=== PATIENT | female | born 1945 | race Caucasian/White ===

== ENCOUNTER 2023-03-27 08:53 | Outpatient (OUT) | payer BC, SELFPAY ==
[2023-03-27 09:39] LABS: Bilirubin Urine NEGATIVE (NEGATIVE); Blood Urine TRACE-I (NEGATIVE); Clarity Urine CLEAR (CLEAR); Color Urine YELLOW (YELLOW); Glucose Urine UA NEGATIVE (NEGATIVE); Ketones Urine NEGATIVE (NEGATIVE); Leukocyte Esterase Urine TRACE (NEGATIVE); Nitrite Urine NEGATIVE (NEGATIVE); Protein Urine TRACE mg/dL (NEG/TRACE); Urobilinogen Urine 0.2 EU/dL (0.2-1.0)
[2023-03-27 09:50] LABS: Bacteria Urine TRACE #/HPF (NONE SEEN)
[2023-03-27 09:51] LABS: Cast Seen? NONE SEEN #/LPF (NONE SEEN); Crystals Seen? None Seen #/HPF (None Seen); Mucus Urine TRACE (NONE SEEN); Squamous Epithelial Cell Urine FEW #/LPF (NONE/RARE); Urine Culture Indicated ALREADY ORDERED
== END 2023-03-27 08:54 | disposition home or self-care (01) ==
LOC: LAB 08:57
PROVIDERS: Family Provider Internal Medicine; PCP Internal Medicine; Visit Provider Internal Medicine
DX: R30.0 Dysuria (principal)
CPT/HCPCS: 81001; 87086; 87150; 87186

== ENCOUNTER 2023-04-11 08:00 | Outpatient (OUT) | payer BC, SELFPAY ==
[2023-04-11] MEDS: COVID VAC 23-24(12UP)MODERNA/PF 50 MCG/0.5 ML VIAL IM (15:00)
== END 2023-04-11 08:01 | disposition home or self-care (01) ==
LOC: VACCLI 05-31 08:56
PROVIDERS: Family Provider Internal Medicine; PCP Internal Medicine; Visit Provider Internal Medicine
DX: Z23 Encounter for immunization (principal)
CPT/HCPCS: 90480; 91322

== ENCOUNTER 2023-05-13 11:20 | Outpatient (OUT) | payer BC, SELFPAY | END 2023-05-13 11:21 | disposition home or self-care (01) | LOC: PST 11:20 | PROVIDERS: Family Provider Internal Medicine; PCP Internal Medicine; Visit Provider Surgery | DX: Z01.818 Encounter for other preprocedural examination (principal); Z12.11 Encounter for screening for malignant neoplasm of colon ==

== ENCOUNTER 2023-05-22 06:51 | Day surgery (SDC) | payer BC, SELFPAY ==
--- NOTE | 2023-05-22 | OP_ITS ---
OPERATION DATE: 05/22/2023 PREOPERATIVE DIAGNOSIS: Colorectal screening. POSTOPERATIVE DIAGNOSIS: 3 mm rectal polyp, hyperplastic. PROCEDURE: Colonoscopy to cecum with cold forceps polypectomy x1. SURGEON: Diomedes Ybarra M.D. ANESTHESIA: Monitored anesthesia care. ESTIMATED BLOOD LOSS: Less than 1 mL. INDICATIONS AND CONSENT: Patient is a 78-year-old female presents for colorectal screening. Indications, risks, benefits, alternatives of proceeding with colonoscopy were explained extensively to the patient, including the risks of bleeding, colon perforation or anesthetic complications. All of her questions were answered. Informed consent was obtained. PROCEDURE: Patient brought to the operating room, placed in the left lateral decubitus position. Monitored anesthesia care was provided. Rectal exam was performed which showed no masses or blood. The scope was inserted into the anal canal. Under direct visualization was advanced. It was advanced to the cecum where cecal markings were clearly identified. Upon withdrawal of the scope, mucosal surfaces were carefully examined. There were no mass lesions or inflammatory changes. There was mild sigmoid diverticulosis without inflammatory changes or scarring. Within the rectum, there was noted to be a 3 mm sessile polyp that appeared hyperplastic. This was removed with cold biopsy forceps with good hemostasis. The scope was retroflexed in the anal canal. There was no significant hemorrhoidal disease. Scope was then withdrawn. Patient tolerated procedure well, was sent to recovery room in good condition.f/u colonoscopy likely in 5 years, but depends on pathology. CC: Patient?s family physician MARY KAY
[2023-05-22 07:08] VITALS: BMI 29.9
[2023-05-22] MEDS: LACTATED RINGER'S SOLUTION 1,000 ML 50 ML IV (07:16)
[2023-05-22 08:25] VITALS: BP 100/44; PULSE 45; RESP 16; TEMP 36.4
[2023-05-22 08:40] VITALS: BP 106/47; PULSE 47; RESP 18; O2SAT 93
[2023-05-22 08:55] VITALS: BP 119/52; PULSE 48; RESP 18; O2SAT 98
== END 2023-05-22 08:55 | disposition home or self-care (01) ==
PROVIDERS: Family Provider Internal Medicine; PCP Internal Medicine; Visit Provider Surgery
PROC: (CPT 811; principal; 2023-05-22 08:00)
DX: Z12.11 Encounter for screening for malignant neoplasm of colon (principal); K62.1 Rectal polyp; K57.30 Diverticulosis of large intestine without perforation or abscess without bleeding; M19.90 Unspecified osteoarthritis, unspecified site; K21.9 Gastro-esophageal reflux disease without esophagitis; I10 Essential (primary) hypertension; Z87.442 Personal history of urinary calculi; E78.00 Pure hypercholesterolemia, unspecified; E66.9 Obesity, unspecified; M85.80 Other specified disorders of bone density and structure, unspecified site; E21.3 Hyperparathyroidism, unspecified; I87.2 Venous insufficiency (chronic) (peripheral); Z90.710 Acquired absence of both cervix and uterus; Z68.30 Body mass index [BMI] 30.0-30.9, adult
CPT/HCPCS: 45380; 88305; J2704

== ENCOUNTER 2023-08-27 11:33 | Outpatient (OUT) | payer BC, SELFPAY ==
--- NOTE | 2023-08-27 11:35 | MM_ITS ---
Patient Name: CORA MCKENZIE MR#: [id number] : 1945 Exam Date: 08/27/2023 Ordering Doctor: DR Bennett Banda D.O. RADIOLOGY REPORT PROCEDURE: MM TOMOSYNTHESIS SCREENING BI COMPARISON: MG MAMM SCREEN 3D JOSE CAD, 08/22/2022. MG MAMM SCREEN 3D JSOE CAD, 08/17/2021. INDICATIONS: screening Calculator Name NCI Breast Cancer Risk Assessment Tool 5 Year Breast Cancer Risk 1.70% Lifetime Breast Cancer Risk 3.50% Personal Breast Cancer No Personal Ovarian Cancer No Treatments None Family Cancers None LOCATION: [facility] BREAST COMPOSITION: Scattered areas fibroglandular density. FINDINGS: DIAGNOSTIC CATEGORY 1--NEGATIVE. NO CHANGE FROM COMPARISON ASSESSMENT. Scattered benign-appearing calcifications are present. Scattered benign-appearing lymph nodes are present. RIGHT BREAST: No significant suspicious finding. LEFT BREAST: No significant suspicious finding. RECOMMENDATIONS: ROUTINE MAMMOGRAM AND CLINICAL EVALUATION IN 12 MONTHS. PLEASE NOTE: A NORMAL MAMMOGRAM DOES NOT EXCLUDE THE POSSIBILITY OF BREAST CANCER. A CLINICALLY SUSPICIOUS PALPABLE LUMP SHOULD BE BIOPSIED. Dictated by: Trace Richard MD on 08/27/2023 at 12:34 Approved by: Trace Richard MD on 08/27/2023 at 12:35
== END 2023-08-27 11:34 | disposition home or self-care (01) ==
LOC: MAMMO 11:33
PROVIDERS: Family Provider Internal Medicine; PCP Internal Medicine; Visit Provider Internal Medicine
DX: Z12.31 Encounter for screening mammogram for malignant neoplasm of breast (principal)
CPT/HCPCS: 77063; 77067

== ENCOUNTER 2023-10-24 06:33 | Outpatient (OUT) | payer BC, SELFPAY ==
--- OUTSIDE RECORDS SUMMARY | 2023-10-24 06:36 | XMS_ITS | CCD ---
Author Organization [facility] Care Team Providers Care Spray Gunner Name Role Phone BENNETT BANDA Primary Care Physician SOLO, DR TEJADA Admitting Unavailable SOLO, DR TEJADA Primary Care Unavailable SOLO, DR TEJADA Attending Unavailable BALL, DR TEJADA Admitting Unavailable BALL, DR TEJADA Attending Unavailable BALL, DR TEJADA Consulting Unavailable BALL, DR TEJADA Primary Care Unavailable WEST, DR TACOS Donaldson Consulting Unavailable BALL, DR TEJADA Admitting Unavailable BALL, DR TEJADA Attending Unavailable BALL, DR TEJADA Consulting Unavailable BALL, DR TEJADA Primary Care Unavailable BALL, DR TEJADA Primary Care Unavailable MANJIT, DARRELL Gongoraitting Unavailable WEST, DR TACOS Donaldson Consulting Unavailable MANJIT, DARRELL Attending Unavailable MANJIT, DARRELL Consulting Unavailable BALL, DR TEJADA Primary Care Unavailable BALL, DR TEJADA Admitting Unavailable BALL, DR TEJADA Attending Unavailable BALL, DR TEJADA Consulting Unavailable ZieberChirag Consulting Unavailable BALL, DR TEJADA Admitting Unavailable BALL, DR TEJADA Attending Unavailable BALL, DR TEJADA Consulting Unavailable BALL, DR TEJADA Primary Care Unavailable BALL, DR TEJADA Primary Care Unavailable BALL, DR TEJADA Consulting Unavailable BALL, DR TEJADA Admitting Unavailable BALL, DR TEJADA Attending Unavailable Solo, Bennett Unavailable Diomedes YBARRA Attending Unavailable DARRELL SARAVIA Attending Unavailable MANJITDARRELL Attending Unavailable MANJITDARRELL Attending Unavailable MANJIT, DARRELL [place] Attending Unavailable DARRELL SARAVIA Admitting Unavailable DARRELL SARAVIA Attending Unavailable Diomedes YBARRA Attending Unavailable Bennett Banda MD Primary Care Provider GERMANIA SANDOVAL Attending Unavailable GERMANIA SANDOVAL Referring Unavailable Allergies Allergy Classification Reported Allergen(s) Allergy Type Date of Onset Reaction(s) Facility (1 source) Adhesive agent Drug allergy (disorder) [facility] (1 source) Aspirin Drug Allergy [facility] (1 source) natural latex rubber Drug allergy (disorder) [facility] (4 sources) patient allergy list reviewed by nurse or physicia Propensity to adverse reactions 3 Comment:Done [employer] Other (4 sources) Adhesive Tape; Translations: [Tape] Drug allergy Eruption of skin (disorder) [facility] (3 sources) Ciprofloxacin; Translations: [ciprofloxacin] Drug Allergy 4 Floaters in visual field (finding) [facility] (1 source) Latex Allergy to substance 3 Rash [facility] Work Phone: (1 source) Wound Dressing Adhesive Drug Allergy 3 Rash [facility] Medications Current Medications Medication Drug Class(es) Dates Sig (Normalized) Sig (Original) 8 hr acetaminophen 650 mg extended release oral tablet (4 sources) Start: 04-30-2023 Tylenol 8 HR Arthritis Pain 650 mg oral tablet, extended release Refills(s) 0 Start Date: 04/30/23 Status: Ordered acetaminophen (T ylenol) 325 MG tablet every 6 (six) hours. 0 Active amLODIPine 5 mg oral tablet (16 sources) Dihydropyridine Calcium Channel Radha Start: 03-05-2019 take 1 tablet by mouth twice daily amLODIPine 5 mg Tab 5 mg = 1 tab(s), Oral, BID, Refills(s) 0 Start Date: 03/05/19 Status: Ordered Start: 03-05-2019 take 1 tablet by мария once daily amLODIPine 5 mg Tab 5 mg = 1 tab(s), Oral, Daily, Refills(s) 0 Start Date: 03/05/19 Status: Ordered ascorbic acid 100 mg chewable tablet (1 source) Vitamin C ascorbic acid (Vitamin C) 100 MG chewable tablet Vitamin C 0 Active Ocuvite (3 sources) Vitamin C Start: 3 take 1 tablet by mouth once daily Ocuvite 1 tab(s), Oral, Daily, Refill(s) 0 Start Date: 04/30/23 Status: Ordered aspirin 81 mg oral tablet (1 source) Platelet Aggregation Inhibitor, Nonsteroidal Anti-inflammatory Drug Start: 9 take 1 mg by mouth once daily aspirin 81 mg oral tablet mg tab(s), Oral, Daily, Refills(s) 0 Start Date: 03/05/19 Status: Ordered atenolol 25 mg oral tablet (16 sources) beta-Adrenergic Radha Start: 9 take 1 tablet by mouth once daily atenolol 25 mg Tab 25 mg = 1 tab(s), Oral, Daily, Refills(s) 0 Start Date: 03/05/19 Status: Ordered cefuroxime 250 mg oral tablet (3 sources) Cephalosporin Antibacterial Start: 3 take 1 tablet by mouth every twelve hours Cefuroxime Axetil 250 MG 1 tablet Orally every 12 hrs for 5 days Mar, Active Cranberry preparation (4 sources) Non-Standardized Food Allergenic Extract, Non-Standardized Plant Allergenic Extract Start: 3 cranberry Refill(s) 0 Start Date: 04/30/23 Status: Ordered Cranberry 50 MG chewable tablet Cranberry 0 Active Elderberry preparation (1 source) Elderberry 500 M G capsule Elderberry 0 Active etodolac 500 mg oral tablet (1 source) Nonsteroidal Anti-inflammatory Drug etodolac (Lodine) 500 MG tablet every 12 (twelve) hours. 0 Active Fish Oils (1 source) omega-3 (FISH OI L) 300 MG capsule Fish Oil 0 Active Garlic preparation (1 source) Non-Standardized Food Allergenic Extract Garlic 2 MG capsule Garlic 0 Active glucosamine sulfate 500 mg oral capsule (1 source) Glucosamine 500 MG capsule 1 (one) time each day at the same time. 0 Active hydrocortisone 10 mg/ml / neomycin 3.5 mg/ml / polymyxin b 18419 unt/ml otic suspension (4 sources) Aminoglycoside Antibacterial, Polymyxin-class Antibacterial, Corticosteroid Start: 04-09-2023 [id number] rocortisone (Cortisporin) 3.5-39878-2 otic suspension INSTILL 4 DROPS INTO THE AFFECTED EAR AT BEDTIME NEEDED 0 04/09/2023 Active Start: 04-09-2023 Neomycin-Polym yxin-HC 3.5-70876-6 4 drops into affected ear Otic q HS PRN for 30 days Mar, Active lisinopril 20 mg oral tablet (2 sources) Angiotensin Converting Enzyme Inhibitor Start: 03-05-2019 take 1 tablet by mouth once daily lisinopril 20 mg Tab 20 mg = 1 tab(s), Oral, Daily, Refills(s) 0 Start Date: 03/05/19 Status: Ordered lisinopril 40 MG tablet 1 (one) time each day at the same time. 0 Active Lutein (1 source) Start: 03-05-2019 lutein See Instructions, Refill(s) 0, Oral Daily Start Date: 03/05/19 Status: Ordered meloxicam 15 mg oral tablet (2 sources) Nonsteroidal Anti-inflammatory Drug Start: 03-05-2019 End: 07-24-2023 take 1 tablet by mouth once daily meloxicam 15 mg oral tablet 15 mg = 1 tab(s), Oral, Daily Start Date: 03/05/19 Status: Ordered Multiple Vitamins-Minerals (EYE VITAMINS & MINERALS PO) (1 source) Multiple Vitamins-Minerals (EYE VITAMINS & MINERALS PO) Eye Vitamins 0 Active omeprazole 20 mg delayed release oral capsule (17 sources) Proton Pump Inhibitor Start: 04-15-2023 take 1 capsule by mouth once daily omeprazole 20 mg Cap-DR 20 mg = 1 cap(s), Oral, Daily, Refills(s) 0 Start Date: 04/15/23 Status: Ordered Start: 03-05-2019 take 2 capsules by m outh once daily Prilosec 10 mg Cap-EC 20 mg = 2 cap(s), Oral, Daily, Refills(s) 0 Start Date: 03/05/19 Status: Ordered omeprazole OTC ( PriLOSEC OTC) 20 MG EC tablet 1 (one) time each day at the same time 0 Active pravastatin sodium 40 mg oral tablet (16 sources) HMG-CoA Reductase Inhibitor Start: 03-05-2019 take 1 tablet by mouth once daily pravastatin 40 mg Tab 40 mg = 1 tab(s), Oral, Daily, Refills(s) 0 Start Date: 03/05/19 Status: Ordered Pumpkin seed extract (1 source) Pumpkin Seed 500 MG capsule Pumpkin Seed 0 Active rutin 50 mg oral tablet (1 source) Start: 03-05-2019 take 1 tablet by mouth once daily bioflavonoids oral tablet See Instructions, 1500 mg daily, Refills(s) 0 Start Date: 03/05/19 Status: Ordered triamcinolone acetonide 1 mg/ml topical cream (1 source) Corticosteroid Start: 01-14-2023 triamcinolone (Kenalog) 0.1 % cream Indications: Other atopic dermatitis Apply thin layer to affected areas on the leg twice a day as needed for flares 80 g 11 01/14/2023 Active Turmeric extract (1 source) Turmeric (QC Tumeric Complex) 500 MG capsule 1 (one) time each day at the same time. 0 Active ubidecarenone 100 mg / vitamin e 5 unt oral capsule (1 source) coenzyme Q-10 10 0 MG capsule 1 (one) time each day at the same time. 0 Active Vitamin C 500 mg Tab (1 source) Start: 03-05-2019 take 1 tablet by mouth once daily Vitamin C 500 mg Tab 500 mg = 1 tab(s), Oral, Daily, Refills(s) 0 Start Date: 03/05/19 Status: Ordered dl-alpha tocopheryl acetate 200 unt oral capsule (1 source) Alpha tocopherol (Vitamin E) 200 units capsule 1 capsule 1 (one) time each day at the same time. 0 Active zinc gluconate 77 mg oral lozenge (1 source) Zinc 10 MG lozen ge Zinc 0 Active Completed/Discontinued Medications Medication Drug Class(es) Dates Sig (Normalized) Sig (Original) acetaminophen 325 mg / oxyCODONE hydrochloride 5 mg oral tablet (1 source) Opioid Agonist End: 07-24-2023 oxyCODONE-acetamin ophen (Percocet) 5-325 MG tablet every 6 (six) hours. 0 07/24/2023 Discontinued (Med list cleanup) ciprofloxacin 250 mg oral tablet (6 sources) Quinolone Antimicrobial Start: 03-29-2023 take 1 tablet by mouth every twelve hours Ciprofloxacin HCl 250 MG 1 tablet Orally every 12 hrs for 5 days Mar, Not-Taking/PRN losartan potassium 50 mg oral tablet (15 sources) Angiotensin 2 Receptor Radha Start: 04-15-2023 losartan 50 mg Tab 50 mg = 1 tab(s), Oral, BID, Oral, 0 Refill(s), Refills(s) 0 Start Date: 04/15/23 Status: Ordered take 1 tablet by mouth every twe nty-four hours sulfamethoxazole 800 mg / trimethoprim 160 mg oral tablet (11 sources) Dihydrofolate Reductase Inhibitor Antibacterial, Sulfonamide Antimicrobial Start: 06-26-2022 take 1 tablet by mouth every twelve hours Bactrim DS 800-160 MG 1 tablet Orally Twice a day for 5 days Jun, Not-Taking/PRN Start: 06-26-2022 take 1 tablet by mouth every t welve hours Vitamin B-12 100 mcg oral tablet (1 source) Start: 03-05-2019 take 1 tablet by mouth once daily Vitamin B-12 100 mcg oral tablet 100 microgram = 1 tab(s), Oral, Daily, Refills(s) 0 Start Date: 03/05/19 Status: Ordered Vitamin E 400 unit(s) Cap (1 source) Start: 03-05-2019 take 1 capsule by mouth once daily Vitamin E 400 unit(s) Cap 400 International_Unit = 1 cap(s), Oral, Daily, Refills(s) 0 Start Date: 03/05/19 Status: Ordered Problems Active Problems Problem Classification Problem Date Documented Date Episodic/Chronic Abdominal pain (19 sources) Lower abdominal pain; Translations: [Lower abdominal pain, unspecified] Episodic Acquired foot deformities (2 sources) Acquired right hallux valgus; Translations: [Hallux valgus (acquired), right foot] Onset: 01-14-2023 01-14-2023 Chronic Allergic reactions (1 source) Atopic dermatitis; Translations: [Other atopic dermatitis] Onset: 01-14-2023 01-14-2023 Chronic Calculus of urinary tract (20 sources) History of calculus of kidney; Translations: [Personal history of urinary calculi] Onset: 08-01-2022 Episodic Conditions associated with dizziness or vertigo (20 sources) Benign paroxysmal positional vertigo; Translations: [Benign paroxysmal vertigo, bilateral] Resolved: 04-15-2023 04-15-2023 Episodic Disorders of lipid metabolism (20 sources) Hyperlipidemia; Translations: [Pure hypercholesterolemia] Onset: 06-17-1957 03-05-2019 Chronic Endometriosis (8 sources) Endometriosis (clinical); Translations: [Endometriosis, unspecified] 03-05-2019 Chronic Esophageal disorders (19 sources) Gastroesophageal reflux disease; Translations: [Gastro-esophageal reflux disease with esophagitis] 03-05-2019 Chronic Essential hypertension (20 sources) Hypertensive disorder; Translations: [Essential hypertension] Onset: 01-14-2023 03-05-2019 Chronic Genitourinary congenital anomalies (4 sources) 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 Genitourinary symptoms and ill-defined conditions (20 sources) Dysuria; Translations: [Finding of frequency of urination] Onset: 06-27-2022 Episodic Immunizations and screening for infectious disease (4 sources) Vaccination given; Translations: [Encounter for immunization] Episodic Menopausal disorders (4 sources) Primary ovarian failure; Translations: [Other primary ovarian failure] Onset: 12-22-2015 Chronic Nonspecific chest pain (19 sources) Chest pain; Translations: [Chest pain, unspecified] Resolved: 04-17-2020 Episodic Nutritional deficiencies (8 sources) Active rickets; Translations: [Vitamin D deficiency] Onset: 06-26-2017 03-05-2019 Chronic Osteoarthritis (20 sources) Arthritis; Translations: [Bilateral primary osteoarthritis of hip] Onset: 03-31-2015 03-05-2019 Chronic Other bone disease and musculoskeletal deformities (11 sources) Osteopenia; Translations: [Other specified disorders of bone density and structure, unspecified site] Episodic Other bone disease and musculoskeletal deformities (4 sources) Bone density finding; Translations: [Other specified disorders of bone density and structure, unspecified site] Episodic Other circulatory disease (13 sources) Carotid bruit; Translations: [Other specified symptoms and signs involving the circulatory and respiratory systems] 04-15-2023 Episodic Other circulatory disease (1 source) Other specified symptoms and signs involving the circulatory and respiratory systems; Translations: [Right carotid bruit] Episodic Other circulatory disease (4 sources) Cardiovascular symptoms; Translations: [Other specified symptoms and signs involving the circulatory and respiratory systems] Episodic Other connective tissue disease (2 sources) History of total knee arthroplasty; Translations: [Presence of right artificial knee joint] Onset: 01-14-2023 07-22-2023 Chronic Other connective tissue disease (1 source) Artificial knee joint present; Translations: [Presence of unspecified artificial knee joint] Onset: 01-14-2023 01-14-2023 Chronic Other diseases of veins and lymphatics (18 sources) Peripheral venous insufficiency; Translations: [Venous insufficiency (chronic) (peripheral)] 04-15-2023 Episodic Other diseases of veins and lymphatics (2 sources) Venous insufficiency (chronic) (peripheral) Episodic Other ear and sense organ disorders (4 sources) Otitis externa of bilateral ears; Translations: [Other otitis externa, bilateral] Chronic Other ear and sense organ disorders (3 sources) Bilateral auditory canal chronic non-infective otitis externa; Translations: [Other otitis externa, bilateral] Chronic Other ear and sense organ disorders (1 source) Other otitis externa, bilateral Chronic Other endocrine disorders (19 sources) Primary hyperparathyroidism; Translations: [Primary hyperparathyroidism] 03-05-2019 Chronic Other nervous system disorders (4 sources) Carpal tunnel syndrome; Translations: [Carpal tunnel syndrome, unspecified upper limb] Onset: 11-04-2013 Chronic Other nervous system disorders (1 source) Difficulty walking; Translations: [Difficulty in walking, not elsewhere classified] Onset: 01-14-2023 01-14-2023 Chronic Other non-traumatic joint disorders (4 sources) Lower limb joint arthritis; Translations: [Osteoarthrosis, unspecified whether generalized or localized, lower leg] Onset: 03-31-2015 Chronic Other non-traumatic joint disorders (11 sources) Arthralgia of the pelvic region and thigh; Translations: [Pain in right hip] Episodic Other non-traumatic joint disorders (4 sources) Pain in right hip joint; Translations: [Pain in right hip] Episodic Other nutritional; endocrine; and metabolic disorders (14 sources) Hypercalcemia; Translations: [Hypercalcemia] 03-05-2019 Chronic Other nutritional; endocrine; and metabolic disorders (1 source) Hypercalcemia; Translations: [Hypercalcemia] Chronic Other nutritional; endocrine; and metabolic disorders (7 sources) Obesity; Translations: [Obesity, unspecified] 04-30-2023 Chronic Other nutritional; endocrine; and metabolic disorders (4 sources) Simple obesity ; Translations: [Other obesity due to excess calories] Onset: 06-17-1959 Chronic Other nutritional; endocrine; and metabolic disorders (7 sources) Body mass index 30+ - obesity; Translations: [Body mass index 30.0-30.9, adult] Onset: [birth year]-17[birth year]1959 04-30-2023 Chronic Other screening for suspected conditions (not mental disorders or infectious disease) (8 sources) Encounter for screening mammogram for malignant neoplasm of breast; Translations: [Encounter for screening for malignant neoplasm of colon] Onset: 08-22-2022 Episodic Other upper respiratory disease (13 sources) Allergic rhinitis; Translations: [Vasomotor rhinitis] 04-15-2023 Chronic Other upper respiratory disease (1 source) Vasomotor rhinitis; Translations: [Chronic vasomotor rhinitis] Chronic Other upper respiratory disease (4 sources) Vasomotor rhinitis; Translations: [Vasomotor rhinitis] Chronic Residual codes; unclassified (11 sources) Asymptomatic menopausal state; Translations: [Menopause] Episodic Residual codes; unclassified (4 sources) Postmenopausal state; Translations: [Asymptomatic menopausal state] Episodic Spondylosis; intervertebral disc disorders; other back problems (20 sources) Sacroiliitis, not elsewhere classified; Translations: [Solitary sacroiliitis] Onset: 11-04-2013 Chronic Spondylosis; intervertebral disc disorders; other back problems (4 sources) Low back pain; Translations: [Low back pain, unspecified] Episodic Sprains and strains (20 sources) Strain of muscle and tendon of back wall of thorax, initial encounter; Translations: [Strain of unspecified muscle(s) and tendon(s) at lower leg level, left leg, initial encounter] Onset: 11-04-2013 Resolved: 05-22-2022 Episodic Thyroid disorders (20 sources) Non-toxic multinodular goiter; Translations: [Thyroid nodule] 03-05-2019 Chronic Unclassified (1 source) LOW BACK PAIN, UNSPECIFIED; Translations: [LOW BACK PAIN, UNSPECIFIED] Onset: 03-15-2022 Unclassified (3 sources) Osteopenia 04-15-2023 Unclassified (3 sources) Patient encounter status 04-30-2023 Urinary tract infections (20 sources) Cystitis; Translations: [Cystitis, unspecified without hematuria] Onset: 08-01-2022 Episodic Past or Other Problems Problem Classification Problem Date Documented Da te Episodic/Chronic Acquired foot deformities (4 sources) Acquired deformity of toe; Translations: [OTHER HAMMER TOE] Onset: 01-29-2017 Episodic Acute bronchitis (4 sources) Acute bronchitis; Translations: [Acute bronchitis, unspecified] Onset: 05-04-2014 Episodic Esophageal disorders (8 sources) Esophageal disorders; Translations: [Gastroesophageal reflux disease with esophagitis without hemorrhage] Fluid and electrolyte disorders (4 sources) Hyperkalemia; Translations: [Hyperkalemia] Onset: 11-02-2015 Episodic Open wounds of extremities (4 sources) Puncture wound without foreign body, right foot, initial encounter; Translations: [Puncture wound without foreign body, right foot, initial encounter] Resolved: 03-12-2022 Episodic Other connective tissue disease (1 source) Abnormal posture; Translations: [ABNORMAL POSTURE] Onset: 02-27-2022 Episodic Other connective tissue disease (4 sources) Plantar fascial fibromatosis; Translations: [Plantar fascial fibromatosis] Onset: 01-03-2016 Episodic Other connective tissue disease (4 sources) Pain in limb; Translations: [Pain in right upper arm] Resolved: 04-17-2020 Episodic Other endocrine disorders (4 sources) Hyperparathyroidism ; Translations: [Hyperparathyroidis m, unspecified] Resolved: 02-21-2021 Chronic Other lower respiratory disease (4 sources) Cough; Translations: [Cough, unspecified] Onset: 05-04-2014 Episodic Other non-traumatic joint disorders (4 sources) Pain in right hip; Translations: [PAIN IN RIGHT HIP] Onset: 03-13-2022 Episodic Other non-traumatic joint disorders (4 sources) Arthralgia of the ankle and/or foot; Translations: [Pain in unspecified ankle and joints of unspecified foot] Onset: 12-27-2014 Episodic Other non-traumatic joint disorders (4 sources) Arthralgia of the lower leg; Translations: [Pain in joint, lower leg] Onset: 01-03-2016 Episodic Poisoning by nonmedicinal substances (4 sources) Toxic effect of venom of other arthropod, accidental (unintentional), initial encounter; Translations: [Toxic effect of venom of arthropod, accidental, init] Resolved: 03-12-2022 Episodic Results Test Name Value Interpretation Reference Range Facility XR Knee - right 1 or 2 Views on 07-25-2023 Imaging Result: July 24, 2023 x-rays AP weight-bearing bilateral knees and lateral of the right knee demonstrate cemented knee replacement in good position alignment without signs of loosening fracture or failure. Impression: Stable appearance of right total knee replacement Vasu Yun D.O. [facility] XR Knee - right 1 or 2 Views Ordered By: Edilson Yun on 07-25-2023 [facility] [employer] Work Phone: XR Knee - right 1 or 2 Views on 07-24-2023 Radiology Study observation (narrative) [facility] 06-04-2023 Lab Reports [id number] 0TIFF Normal [facility] Pathology Noteon 05-29-2023 Pathology Note [id number] Marianne Bejarano [facility] Ambulatory Visit Summaryon 1 07-29-2022 Ambulatory Visit Summary ZAKIYA MCKENZIE :1945 Visit Date:05/28/2023 Ambulatory Visit Instructions Your Diagnosis Recurrent cystitis History of nephrolithiasis Tests Performed Urnls Dip Stick Auto w/o Microscopy POC 21918 Your Care Team Attending Physician - DARRELL SARAVIA PA-C Primary Care Physician - BENNETT BANDA DO This Is Your Medications List acetaminophen (Tylenol 8 HR Arthritis Pain 650 mg oral tablet, extended release) amlodipine (amLODIPine 5 mg Tab) atenolol (atenolol 25 mg Tab) cranberry losartan (losartan 50 mg Tab) multivitamin with minerals (Ocuvite) omeprazole (omeprazole 20 mg Cap-DR) pravastatin (pravastatin 40 mg Tab) Procedures Performed Colonoscopy (02/08/2011), Appendectomy, Arthroplasty of right knee, section, Cystoscopy, Lithotripsy, HANANE BSO - Total abdominal hysterectomy and bilateral salpingo-oophorectomy. Discharge Vitals Heart Rate (Peripheral) 80 Respiratory Rate 16 Blood Pressure 128/79 Height 160 cm Height 63 in Weight 75 kg Weight 165 lb BMI 29.3 Medications What How Much When Instructions Unchanged acetaminophen (Tylenol 8 HR Arthritis Pain 650 mg oral tablet, extended release) Unchanged amlodipine (amLODIPine 5 mg Tab) 1 Tablets By Mouth 2 times a day Unchanged atenolol (atenolol 25 mg Tab) 1 Tablets By Mouth Every day Unchanged cranberry Unchanged losartan (losartan 50 mg Tab) 1 Tablets By Mouth 2 times a day Oral, 0 Refill(s) Unchanged multivitamin with minerals (Ocuvite) 1 Tablets By Mouth Every day Unchanged omeprazole (omeprazole 20 mg Cap-DR) 1 Capsules By Mouth Every day Unchanged pravastatin (pravastatin 40 mg Tab) 1 Tablets By Mouth Every day Test Results Urnls Dip Stick Auto w/o Microscopy POC 94848 (05/28/2023) Bilirubin Urine Dipstick - Negative Blood Urine Dipstick - Negative Glucose Urine Dipstick - Negative Ketones Urine Dipstick - Negative Leukocytes Urine Dipstick - 1+ Small Nitrite Urine Dipstick - Negative Protein Urine Dipstick - Negative Specific [place] Urine Dipstick - 1.010 Urine Appearance Urine Dipstick - Clear Urine Color Urine Dipstick - Light yellow Urobilinogen Urine Dipstick - Normal 0.2-1 EU/dl pH Urine Dipstick - 6.5 Allergies Tape (Rash) ciprofloxacin (Floaters in visual field) Problems Ongoing - Any problem that you are currently receiving treatment for. Allergic rhinitis Arthritis BMI 30.0-30.9,adult Carotid bruit Chronic GERD Endometriosis History of nephrolithiasis HTN (hypertension) Hypercalcemia Hypercholesterolemia Hyperlipidemia Nontoxic multinodular goiter Obesity Osteopenia Partially duplicated ureter Peripheral venous insufficiency Primary hyperparathyroidism Recurrent cystitis Screening for malignant neoplasm of colon Historical - Any problem that you are no longer receiving treatment for. Active rickets Benign paroxysmal positional vertigo History of kidney stones Patient Survey You may receive a survey via text or e-mail asking about your office visit. Please share your experience with us by completing your survey. We appreciate your feedback and thank you for choosing us for your care. [facility] Patient Educationon 05-28-20 Patient Education Obstetrics and Gynecology Urinary Tract Infection, Adult A urinary tract infection (UTI) is an infection of any part of the urinary tract. The urinary tract includes the kidneys, ureters, bladder, and urethra. These organs make, store, and get rid of urine in the body. An upper UTI affects the ureters and kidneys. A lower UTI affects the bladder and urethra. What are the causes? Most urinary tract infections are caused by bacteria in your genital area around your urethra, where urine leaves your body. These bacteria grow and cause inflammation of your urinary tract. What increases the risk? You are more likely to develop this condition if: ? You have a urinary catheter that stays in place. ? You are not able to control when you urinate or have a bowel movement (incontinence). ? You are female and you: ? Use a spermicide or diaphragm for control. ? Have low estrogen levels. ? Are . ? You have certain genes that increase your risk. ? You are sexually active. ? You take antibiotic medicines. ? You have a condition that causes your flow of urine to slow down, such as: ? An enlarged prostate, if you are male. ? Blockage in your urethra. ? A kidney stone. ? A nerve condition that affects your bladder control (neurogenic bladder). ? Not getting enough to drink, or not urinating often. ? You have certain medical conditions, such as: ? Diabetes. ? A weak disease-fighting system (immunesystem). ? Sickle cell disease. ? Gout. ? Spinal cord injury. What are the signs or symptoms? Symptoms of this condition include: ? Needing to urinate right away (urgency). ? Frequent urination. This may include small amounts of urine each time you urinate. ? Pain or burning with urination. ? Blood in the urine. ? Urine that smells bad or unusual. ? Trouble urinating. ? Cloudy urine. ? Vaginal discharge, if you are female. ? Pain in the abdomen or the lower back. You may also have: ? Vomiting or a decreased appetite. ? Confusion. ? Irritability or tiredness. ? A fever or chills. ? Diarrhea. The first symptom in older adults may be confusion. In some cases, they may not have any symptoms until the infection has worsened. How is this diagnosed? This condition is diagnosed based on your medical history and a physical exam. You may also have other tests, including: ? Urine tests. ? Blood tests. ? Tests for STIs (sexually transmitted infections). If you have had more than one UTI, a cystoscopy or imaging studies may be done to determine the cause of the infections. How is this treated? Treatment for this condition includes: ? Antibiotic medicine. ? Ubxz-maj-xxfpatj medicines to treat discomfort. ? Drinking enough water to stay hydrated. If you have frequent infections or have other conditions such as a kidney stone, you may need to see a health care provider who specializes in the urinary tract (urologist). In rare cases, urinary tract infections can cause sepsis. Sepsis is a life-threatening condition that occurs when the body responds to an infection. Sepsis is treated in the hospital with IV antibiotics, fluids, and other medicines. Follow these instructions at home: Medicines ? Take kikb-mpf-toqdkma and prescription medicines only as told by your health care provider. ? If you were prescribed an antibiotic medicine, take it as told by your health care provider. Do not stop using the antibiotic even if you start to feel better. General instructions ? Make sure you: ? Empty your bladder often and completely. Do not hold urine for long periods of time. ? Empty your bladder after sex. ? Wipe from front to back after urinating or having a bowel movement if you are female. Use each tissue only one time when you wipe. ? Drink enough fluid to keep your urine pale yellow. ? Keep all follow-up visits. This is important. Contact a health care provider if: ? Your symptoms do not get better after 1?2 days. ? Your symptoms go away and then return. Get help right away if: ? You have severe pain in your back or your lower abdomen. ? You have a fever or chills. ? You have nausea or vomiting. Summary ? A urinary tract infection (UTI) is an infection of any part of the urinary tract, which includes the kidneys, ureters, bladder, and urethra. ? Most urinary tract infections are caused by bacteria in your genital area. ? Treatment for this condition often includes antibiotic medicines. ? If you were prescribed an antibiotic medicine, take it as told by your health care provider. Do not stop using the antibiotic even if you start to feel better. ? Keep all follow-up visits. This is important. This information is not intended to replace advice given to you by your health care provider. Make sure you discuss any questions you have with your health care provider. Document Revised: 01/13/2021 Document Revie (more content not included)... [facility] Office/Clinic Noteon 05-28-2023 Urology Office/Clinic Note Chief Complaint Discuss Recurrent UTI's HPI Staff Pt is here today to discuss recurrent UTI's Last seen in our office as a new pt, by JESSICA 08/01/22. DX: Recurrent Cystitis & Personal Hx of Kidney Stones. *No Urology Meds KUB & DEBORAH 08/15/22 +C&S 03/27/23 (ordered by PCP) *90-100k E Coli Dr. Banda prescribed Cipro 250 mg BID x5 days, but she stopped it due to floaters in her eyes. He then prescribed cefuroxime 250 mg BID x5 days. After 3-4 days, her symptoms came back so he gave her a second 5 day course of cefuroxime. Pt then called our office 05/06/23 c/o cloudy urine, bladder spasms, stabbing pain when she urinates +C&S 05/06/23 *>100k E Coli Tx'd w/Doxy 100mg BID [id number] Since finishing Doxy, symptoms have subsided. Symptoms were almost like a bladder spasm. Wondering if she passed a stone. Did not see one. Denies visible blood. Did have pain/burning. Since last encounter has increased her fluid intake (water & cranberry juice) PVR 0ml Review of Systems PHQ Score Initial Depression Screen Score: 0 SCORE no fever, chills, malaise, myalgia. no rash/lesions. no chest pain, palpitations, or SOB. no abdominal pain, nausea, vomiting. no unilateral calf swelling, redness, pain Physical Exam Vitals & Measurements HR: 80(Peripheral) RR: 16 BP: 128/79 HT: 63 in HT: 160 cm WT: 75 kg WT: 165 lb BMI: 29.3 General: nontoxic, NAD Mouth: moist mucosa Lungs: normal respiratory effort Cardio: regular rate, good distal perfusion Abdomen: nondistended, no suprapubic distention or tenderness, no CVA tenderness Neurologic: Grossly normal Skin: No rashes or suspicious lesions Assessment/Plan 1. Recurrent cystitis (N30.90: Cystitis, unspecified without hematuria) previous note: reports episodes every few months where she gets bladder spasms, SP pain, frequency, urgency. she notices that she has several eczema spots on her arm/leg that become red/itchy/inflamed at the same time as these bladder sx present. increases fluids and takes OTC cystex and the sx resolve within a few days. (uses topical cream for the skin lesions.) has had urines checked multiple times during these episodes and they're always negative. discussed that it does not appear to be infectious cause. we spoke about noninfectious causes of cystitis like bladder irritants, hygiene products, bubblebaths/hot tubs, IC, medications, etc. we spoke about potential eval including cystoscopy, but we agree this does not seem necessary at this time since her current management works well. pt will contact office if episodes increase in frequency, severity, or stop responding to current tx measures. pt has had true culture-proven UTIs a couple times in the past few years. however these present differently than above. typically has fever, chills, nausea/vomiting. these are not happening even once per year, so we agree that preventive measures (d-mannose, cranberry, probiotics, estrogen cream, etc) would be overkill right now. if frequency of true UTIs increases then we would consider these measures. today: had 90-100k E Coli on cx per PCP 03/29/23. Dr. Banda prescribed Cipro 250 mg BID x5 days, but she stopped it due to floaters in her eyes. He then prescribed cefuroxime 250 mg BID x5 days. After 3-4 days, her symptoms came back so he gave her a second 5 day course of cefuroxime. Unfortunately sx returned a couple weeks later so she called our office. repeat UACS 05/06 showed the same E Coli. we treated w 10d doxy and sx have completely resolved. pt says it feels better than it did after finishing the abx from Dr Banda. discussed in future to contact our office for all suspected UTIs. if unable (weekend/holiday) ask for culture to always be done and ask for at least 7-10d abx course. hold off on any additional UTI prevention methods (est cream, methenamine, suppressive abx) for now as this has only been 1 UTI (likely all the same one in Mar/Apr) in 6 mos. pt has been increasing her fluid intake. does better some days than others. will continue working on this. Ordered: E&M of Est. Patient Low 20-29 Min 93535 Urnls Dip Stick Auto w/o Microscopy POC 52884 2. History of nephrolithiasis (Z87.442: Personal history of urinary calculi) denies flank pain, gross hematuria. 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 Patient Low 20-29 Min 19537 f/u 1 yr, sooner PRN Follow-up With When Contact Information DARRELL SARAVIA PA-C, URL Within 1 year Additional Instructions: Patient Education Urinary Tract Infection, Adult Problem List/Past Medical History Ongoing Allergic rhinitis Arthritis BMI 30.0-30.9,adult Carotid bruit Chronic GERD Endometriosis History of nephrolithiasis HTN (hypertension) Hypercalcemia Hypercholesterolemia Hyperlipidemia Nontoxic multinodular goiter Obesity Osteopenia Partially duplicated ureter Peripheral venous insufficiency Primary hyperparathyroidism Recurre (more content not included)... [facility] Comment on above: Result Comment: Elec tronically Signed By: DARRELL SARAVIA PA-C\.br\Date and Time Signed: 05/28/23 12:01 EST Outside Colonoscopyon 2022 Outside Colonoscopy [id number] 20 [id number]#[id number] 0TIFF [facility] Insurance Correspondenceon 1 07-14-2022 Insurance Correspondence [id number]#1. 00TIFF [facility] C Urineon 05-08-2023 Bacteria identified Cx Nom (U) Microbiology PROCEDURE: Urine Culture [R1] SOURCE: U CleanCatch BODY SITE: COLLECTED DATE/TIME: 05/06/2023 09:34 EST RECEIVED DATE/TIME: 05/06/2023 18:13 EST START DATE/TIME: 05/06/2023 18:13 EST FREE TEXT SOURCE: DARRELL SARAVIA PA-C, PA-C, JENNIFER E FINAL REPORTS Final Report [] Verified Date/Time: 05/08/2023 12:03 EST >100,000 cfu/ml Escherichia coli SUSCEPTIBILITY RESULTS __ LEGEND: S=Susceptible, N/R=Not Reported, Blank=Data not available, or drug not advisable or tested, I=Intermediate, ESBL=Extended spectrum beta-lactamase, R=Resistant, TFG=Thymidine-dependen t strain, LIDA=Beta-lactamase positive, ADRIANA=mcg/m;(mg/L), S*=Predicted susceptible interp, R*=Predicted resistant interp EC Antibiotic ADRIANA Dilutn ADRIANA Interp Amikacin <=16 S Ampicillin <=8 S Ampicillin/ <=8/4 S Sulbactam Aztreonam <=4 S Cefazolin <=2 S Cefepime <=2 S Cefoxitin <=8 S Ceftazidime <=1 S Ceftazidime/ <=8 S Avibactam Ceftriaxone <=1 S Ciprofloxacin <=1 S Ertapenem <=0.5 S Gentamicin <=4 S Levofloxacin <=2 S Meropenem <=1 S Nitrofurantoin <=32 S Piperacillin/ <=16 S Tazobactam Tetracycline <=4 S Tigecycline <=2 S Tobramycin <=4 S Trimethoprim/ <=2/38 S Sulfa Performing Locations R1: This test was performed at: [facility], [address] [place] [address], [facility] , , [facility] Comment on above: Performed By: #### [id number] ####[place] [address] Ambulatory Visit Summaryon 1 07-06-2022 Ambulatory Visit Summary ZAKIYA MCKENZIE :1945 Visit Date:05/06/2023 Ambulatory Visit Instructions Your Diagnosis UTI symptoms Tests Performed Urnls Dip Stick Auto w/o Microscopy POC 58606 Your Care Team Attending Physician - DARRELL SARAVIA PA-C Primary Care Physician - BENNETT BANDA DO This Is Your Medications List acetaminophen (Tylenol 8 HR Arthritis Pain 650 mg oral tablet, extended release) amlodipine (amLODIPine 5 mg Tab) atenolol (atenolol 25 mg Tab) cranberry losartan (losartan 50 mg Tab) multivitamin with minerals (Ocuvite) omeprazole (omeprazole 20 mg Cap-DR) pravastatin (pravastatin 40 mg Tab) Procedures Performed Colonoscopy (02/08/2011), Appendectomy, Arthroplasty of right knee, section, Cystoscopy, Lithotripsy, HANANE BSO - Total abdominal hysterectomy and bilateral salpingo-oophorectomy. What to do next Scheduled Follow-Up Appointments Saturday 11:20 AM EST With: DARRELL SARAVIA PA-C Where: [facility] Consent for Procedure/Surger yon 05-01-2023 Consent for Procedure/Surgery [id number]#1. 00TIFF [facility] Ambulatory Visit Summaryon 1 06-30-2022 Ambulatory Visit Summary ZAKIYA MCKENZIE :1945 Visit Date:04/30/2023 Ambulatory Visit Instructions Your Care Team Attending Physician - MAYURI SKAGGS, Diomedes Clarke Primary Care Physician - BENNETT BANDA DO This Is Your Medications List Contact prescribing physician if questions or concerns acetaminophen (Tylenol 8 HR Arthritis Pain 650 mg oral tablet, extended release) amlodipine (amLODIPine 5 mg Tab) atenolol (atenolol 25 mg Tab) cranberry losartan (losartan 50 mg Tab) multivitamin with minerals (Ocuvite) omeprazole (omeprazole 20 mg Cap-DR) pravastatin (pravastatin 40 mg Tab) Procedures Performed Colonoscopy (02/08/2011), Appendectomy, Arthroplasty of right knee, section, Cystoscopy, Lithotripsy, HANANE BSO - Total abdominal hysterectomy and bilateral salpingo-oophorectomy. Discharge Vitals Heart Rate (Peripheral) 72 Respiratory Rate 16 Blood Pressure 138/72 Height 160 cm Height 63 in Weight 77.1 kg Weight 169.62 lb BMI 30.12 What to do next Scheduled Follow-Up Appointments Saturday 11:20 AM EST With: DARRELL SARAVIA PA-C Where: [facility] Physician Referralon 023 Physician Referral [id number] 0TIFF [facility] Physician Referralon 023 Physician Referral [id number] TIFF [facility] UA RANDOM W/MICROSCOPICon Clarity (U) CLEAR CLEAR [employer] Other Color (U) YELLOW YELLOW [employer] Other Ketones Ql (U) Negative NEGATIVE mg/dL [employer] Other Leukocyte esterase Test strip Ql (U) TRACE Abnormal NEGATIVE [employer] Other pH (U) 6.0 [pH] 5.0-9.0 [employer] Other UA RANDOM W/MICROSCOPIC 2-5 #/HPF Abnormal 0-2 #/HPF [employer] Other UA RANDOM W/MICROSCOPIC see note [employer] Other UA RANDOM W/MICROSCOPIC 1.020 1.005-1.025 [employer] Other UA RANDOM W/MICROSCOPIC TRACE mg/dL NEG/TRACE mg/dL [employer] Other UA RANDOM W/MICROSCOPIC Negative NEGATIVE [employer] Other UA RANDOM W/MICROSCOPIC TRACE-I NEGATIVE [employer] Other UA RANDOM W/MICROSCOPIC 0.2 EU/dL 0.2-1.0 EU/dL [employer] Other UA RANDOM W/MICROSCOPIC TRACE #/HPF Abnormal NONE SEEN #/HPF [employer] Other UA RANDOM W/MICROSCOPIC TRACE Abnormal NONE SEEN [employer] Other UA RANDOM W/MICROSCOPIC FEW #/LPF Abnormal NONE/RARE #/LPF [employer] Other UA RANDOM W/MICROSCOPIC None Seen #/HPF None Seen #/HPF [employer] Other UA RANDOM W/MICROSCOPIC NONE SEEN #/LPF NONE SEEN #/LPF [employer] Other UA RANDOM W/MICROSCOPIC ALREADY ORDERED [employer] Other CBC AUTO DIFFon 10-19-2022 BASO # 0.0 103/ul Normal 0.0-0.1 [facility] Comment on above: Performed By: #### U RCX #### [facility] [address] [place] [address] Dr. Sheryl Zaragoza Basophils/100 WBC (Bld) 0.8 % Normal 0.2-2.0 [facility] Comment on above: Performed By: #### U RCX #### [facility] [address] [place] [address] Dr. Sheryl Zaragoza EO # 0.1 103/ul Normal 0.0-0.7 [facility] Comment on above: Performed By: #### U RCX #### [facility] [address] [place] [address] Dr. Sheryl Zaragoza Eosinophils/100 WBC (Bld) 2.5 % Normal 0.9-7.0 [facility] Comment on above: Performed By: #### U RCX #### [facility] [address] [place] [address] Dr. Sheryl Zaragoza Erythrocyte distribution width (RBC) [Ratio] 11.9 % Normal 11.0-15.0 [facility] Comment on above: Performed By: #### U RCX #### [facility] [address] [place] [address] Dr. Sheryl Zaragoza Hematocrit (Bld) [Volume fraction] 37.5 % Normal 36.0-48.0 [facility] Comment on above: Performed By: #### U RCX #### [facility] [address] [place] [address] Dr. Sheryl Zaragoza Hemoglobin (Bld) [Mass/Vol] 12.8 g/dL Normal 12.0-16.0 [facility] Comment on above: Performed By: #### U RCX #### [facility] [address] [place] [address] Dr. Sheryl Zaragoza IG # 0.01 10e3/ul Normal 0.00-0.03 [facility] Comment on above: Performed By: #### U RCX #### [facility] [address] [address] [address] Sheryl Zaragoza IG % 0.3 % Normal 0.0-0.5 [facility] Comment on above: Performed By: #### U RCX #### [facility] [address] [address] [address] Sheryl Zaragoza LYMPH # 0.8 103/ul Critically low 1.2-3.8 [facility] Comment on above: Performed By: #### U RCX #### [facility] [address] [place] [address] Dr. Sheryl Zaragoza Lymphocytes/100 WBC (Bld) 21.1 % Normal 20.5-60.0 [facility] Comment on above: Performed By: #### U RCX #### [facility] [address] [place] [address] Dr. Sheryl Zaragoza MANUAL DIFF REQ NO Normal [facility] Comment on above: Performed By: #### U RCX #### [facility] [address] [place] [address] Dr. Sheryl Zaragoza MCH (RBC) [Entitic mass] 30.1 pg Normal 26.7-34.0 [facility] Comment on above: Performed By: #### U RCX #### [facility] [address] [place] [address] Dr. Sheryl Zaragoza MCHC (RBC) [Mass/Vol] 34.1 g/dL Normal 29.9-35.2 [facility] Comment on above: Performed By: #### U RCX #### [facility] [address] [place] [address] Dr. Sheryl aZragoza MCV (RBC) [Entitic vol] 88.2 fL Normal 81.0-99.0 [facility] Comment on above: Performed By: #### U RCX #### [facility] [address] [place] [address] Dr. Sheryl Zaragoza MONO # 0.4 103/ul Normal 0.3-0.8 [facility] Comment on above: Performed By: #### U RCX #### [facility] [address] [address] [address] Sheryl Zaragoza Monocytes/100 WBC (Bld) 10.8 % Normal 1.7-12.0 [facility] Comment on above: Performed By: #### U RCX #### [facility] [address] [address] [address] Sheryl Zaragoza NEUT # 2.6 103/ul Normal 1.4-6.5 [facility] Comment on above: Performed By: #### U RCX #### [facility] [address] [place] [address] Dr. Sheryl Zaragoza Neutrophils/100 WBC (Bld) 64.5 % Normal 43.0-75.0 [facility] Comment on above: Performed By: #### U RCX #### [facility] [address] [place] [address] Dr. Sheryl Zaragoza Platelet mean volume (Bld) [Entitic vol] 10.5 fL Normal 9.5-13.5 [facility] Comment on above: Performed By: #### U RCX #### [facility] [address] [place] [address] Dr. Sheryl Zaragoza PLT 229 103/ul Normal 150-450 [facility] Comment on above: Performed By: #### U RCX #### [facility] [address] [place] [address] Dr. Sheryl Zaragoza RBC 4.25 106/ul Normal 4.20-5.40 [facility] Comment on above: Performed By: #### U RCX #### [facility] [address] [place] [address] Dr. Sheryl Zaragoza WBC 4.0 103/ul Normal 4.0-11.0 [facility] Comment on above: Performed By: #### U RCX #### [facility] [address] [place] [address] Dr. Sheryl Zaragoza GLYCOHEMOGLOBIN A1Con 2022 ADA RECOMMENDATION SEE BELOW Normal [facility] Comment on above: Result Comment: ADA RECOMMENDED LIMIT 4.0 - 6.0 ADA THERAPEUTIC TARGET < 7.0 ACTION SUGGESTED > 7.0 Performed By: #### A 1C #### [facility] [address] [address] [address] Sheryl Zaragoza Glucose [Mass/Vol] 103 mg/dL Normal [facility] Comment on above: Performed By: #### A 1C #### [facility] [address] [address] [address] Sheryl Zaragoza HbA1c (Bld) [Mass fraction] 5.2 % Normal 4.5-6.2 [facility] Comment on above: Performed By: #### A 1C #### [facility] [address] [address] [address] Sheryl Zaragoza LIPID PROFILEon 10-19-2022 CHOL-HDL RATIO NORM SEE BELOW Normal [facility] Comment on above: Result Comment: 3.3 - 4.4 LOW RISK 4.4 - 7.1 AVERAGE RISK 7.1 - 11.0 MODERATE RISK >11.0 HIGH RISK Performed By: #### C MP, LIPID, TSH #### [facility] [address] [place] [address] Dr. Sheryl Zaragoza Cholesterol [Mass/Vol] 185 mg/dL Normal <=200 [facility] Comment on above: Performed By: #### C MP, LIPID, TSH #### [facility] [address] [address] [address] Sheryl Zaragoza Cholesterol in HDL [Mass/Vol] 63 mg/dL Critically high 40-60 [facility] Comment on above: Performed By: #### C MP, LIPID, TSH #### [facility] [address] [address] [address] Sheryl Zaragoza Cholesterol in LDL [Mass/Vol] 103.8 mg/dL Normal [facility] Comment on above: Performed By: #### C MP, LIPID, TSH #### [facility] [address] [address] [address] Sheryl Zaragoza Cholesterol.total/Ch olesterol in HDL [Mass ratio] 2.9 {ratio} Normal [facility] Comment on above: Performed By: #### C MP, LIPID, TSH #### [facility] [address] [address] [address] Sheryl Zaragoza HDL NORMAL > or = 60 mg/dl - LO W CARDIOVASCULAR RISK <40 mg/dl - HIGH CARDIOVASCULAR RISK Normal [facility] Comment on above: Performed By: #### C MP, LIPID, TSH #### [facility] [address] [address] [address] Sheryl Zaragoza LDL CALC NORMAL SEE BELOW Normal [facility] Comment on above: Result Comment: <100 mg/dl OPTIMAL 100 - 129 mg/dl NEAR OR ABOVE OPTIMAL 130 - 159 mg/dl BORDERLINE HIGH 160 - 189 mg/dl HIGH >190 mg/dl VERY HIGH Performed By: #### C MP, LIPID, TSH #### [facility] [address] [place] [address] Dr. Sheryl Zaragoza Triglyceride [Mass/Vol] 91 mg/dL Normal <=150 [facility] Comment on above: Performed By: #### C MP, LIPID, TSH #### [facility] [address] [address] [address] Sheryl Zaragoza VLDL CALC 18.2 mg/dL Normal [facility] Comment on above: Performed By: #### C MP, LIPID, TSH #### [facility] [address] [place] [address] Dr. Sheryl Zaragoza PROF 14(COMP METB)on 023 Albumin [Mass/Vol] 3.7 g/dL Normal 3.4-5.0 [facility] Comment on above: Performed By: #### C MP, LIPID, TSH #### [facility] [address] [place] [address] Dr. Sheryl Zaragoza Albumin/Globulin [Mass ratio] 1.1 {ratio} Normal [facility] Comment on above: Performed By: #### C MP, LIPID, TSH #### [facility] [address] [place] [address] Dr. Sheryl Zaragoza ALP [Catalytic activity/Vol] 81 U/L Normal 46-116 [facility] Comment on above: Performed By: #### C MP, LIPID, TSH #### [facility] [address] [place] [address] Dr. Sheryl Zaragoza ALT [Catalytic activity/Vol] 24 U/L Normal 14-59 [facility] Comment on above: Performed By: #### C MP, LIPID, TSH #### [facility] [address] [place] [address] Dr. Sheryl Zaragoza Anion gap [Moles/Vol] 8.2 mmol/L Normal [facility] Comment on above: Performed By: #### C MP, LIPID, TSH #### [facility] [address] [place] [address] [address] Sheryl Zaragoza AST [Catalytic activity/Vol] 17 U/L Normal 15-37 [facility] Comment on above: Performed By: #### C MP, LIPID, TSH #### [facility] [address] [place] [address] Dr. Sheryl Zaragoza Bilirubin [Mass/Vol] 0.5 mg/dL Normal 0.2-1.0 [facility] Comment on above: Performed By: #### C MP, LIPID, TSH #### [facility] [address] [place] [address] Dr. Sheryl Zaragoza Calcium [Mass/Vol] 9.9 mg/dL Normal 8.5-10.1 [facility] Comment on above: Performed By: #### C MP, LIPID, TSH #### [facility] [address] [place] [address] Dr. Sheryl Zaragoza Chloride [Moles/Vol] 102 mmol/L Normal 98-107 [facility] Comment on above: Performed By: #### C MP, LIPID, TSH #### [facility] [address] [place] [address] Dr. Sheryl Zaragoza CO2 [Moles/Vol] 30.2 mmol/L Normal 21.0-32.0 [facility] Comment on above: Performed By: #### C MP, LIPID, TSH #### [facility] [address] [place] [address] Dr. Sheryl Zaragoza Creatinine [Mass/Vol] 0.88 mg/dL Normal 0.55-1.02 [facility] Comment on above: Performed By: #### C MP, LIPID, TSH #### [facility] [address] [place] [address] [address] Sheryl Zaragoza EGFR-AF MALIAN >60 Normal >=60 [facility] Comment on above: Performed By: #### C MP, LIPID, TSH #### [facility] [address] [place] [address] [address] Sheryl Zaragoza EGFR-NON AF MALIAN >60 Normal >=60 [facility] Comment on above: Performed By: #### C MP, LIPID, TSH #### [facility] [address] [place] [address] [address] Sheryl Zaragoza Globulin (S) [Mass/Vol] 3.4 g/dL Normal [facility] Comment on above: Performed By: #### C MP, LIPID, TSH #### [facility] [address] [place] [address] [address] Sheryl Zaragoza Glucose [Mass/Vol] 97 mg/dL Normal 74-[address] [facility] Comment on above: Performed By: #### C MP, LIPID, TSH #### [facility] [address] [address] [address] Sheryl Zaragoza Potassium [Moles/Vol] 4.4 mmol/L Normal 3.5-5.1 [facility] Comment on above: Performed By: #### C MP, LIPID, TSH #### [facility] [address] [address] [address] Sheryl Zaragoza Protein [Mass/Vol] 7.1 g/dL Normal 6.4-8.[address] [facility] Comment on above: Performed By: #### C MP, LIPID, TSH #### [facility] [address] [address] [address] Sheryl Zaragoza Sodium [Moles/Vol] 136 mmol/L Normal 136-[address] [facility] Comment on above: Performed By: #### C MP, LIPID, TSH #### [facility] [address] [address] [address] Sheryl Zaragoza Urea nitrogen [Mass/Vol] 14.0 mg/dL Normal 7.0-18.0 [facility] Comment on above: Performed By: #### C MP, LIPID, TSH #### [facility] [address] [place], [place] [address] Dr. Sheryl Zaragoza Urea nitrogen/Creatinine [Mass ratio] 15.9 mg/mg Normal [facility] Comment on above: Performed By: #### C MP, LIPID, TSH #### [facility] [address] [place], [place] [address] Dr. Sheryl Zaragoza TSHon 10-19-2022 TSH 1.288 uIU/mL Normal 0.358-3.740 [facility] Comment on above: Performed By: #### C MP, LIPID, TSH #### [facility] [address] [place], [place] [address] Dr. Sheryl Zaragoza MG MAMM SCREEN 3D JOSE CADon 08-22-2022 MG MAMM SCREEN 3D JOSE CAD Patient: ZAKIYA MCKENZIE Exam Date: 08/22/2022 : 1945 Gender:F Ordering : DR BENNETT BANDA D.O. Admission #: [id number] Family : Order #: [id number] CLICK HERE TO VIEW EXAM RADIOLOGY REPORT PROCEDURE: MAMMOGRAM SCREENING 3D BILATERAL CAD COMPARISON: MG MAMM SCREEN 3D JOSE CAD, 08/17/2021. MG MAMM SCREEN JOSE W CAD, 08/10/2020. MG MAMM SCREEN JOSE W CAD, 08/05/2019. MG MAMM SCREEN JOSE W CAD, 07/23/2018. INDICATIONS: Screening mammography Calculator Name NCI Breast Cancer Risk Assessment Tool 5 Year Breast Cancer Risk 1.70% Lifetime Breast Cancer Risk 3.80% Personal Breast Cancer No Personal Ovarian Cancer No Treatments None Family Cancers None LOCATION: [facility] BREAST COMPOSITION: Scattered areas fibroglandular density. FINDINGS: DIAGNOSTIC CATEGORY 1--NEGATIVE. RIGHT BREAST: No significant suspicious finding. No significant change has occurred. LEFT BREAST: No significant suspicious finding. No significant change has occurred. RECOMMENDATIONS: ROUTINE MAMMOGRAM AND CLINICAL EVALUATION IN 12 MONTHS. PLEASE NOTE: A NORMAL MAMMOGRAM DOES NOT EXCLUDE THE POSSIBILITY OF BREAST CANCER. A CLINICALLY SUSPICIOUS PALPABLE LUMP SHOULD BE BIOPSIED. Dictated by: Chirag Russell M.D. on 08/22/2022 at 17:05 Approved by: Chirag Russell M.D. on 08/22/2022 at 17:08 Normal [facility] RAD - MISCon 08-17-2022 RAD - MISC [id number] 0CD:127 Normal [facility] RAD - Ultrasound Reporton RAD - Ultrasound Report [id number] 0CD:127 Normal [facility] US KIDNEYSon 08-15-2022 US KIDNEYS EXAMINATION: US KIDNEYS HISTORY: H/O: urinary stone COMPARISON: No relevant comparison available. TECHNIQUE: Ultrasound examination was performed of the bladder. FINDINGS: Right Kidney: Normal in size, contour and echotexture. No solid cortical mass, hydronephrosis or obstructing nephrolithiasis. The cortex measures 1.2 cm. Height: 3.7 cm Length: 8.1 cm Width: 4.5 cm Left Kidney: Normal in size, contour and echotexture. No solid cortical mass, hydronephrosis or obstructing nephrolithiasis. The cortex measures 1.1 cm Height: 5.3 cm Length: 10.7 cm Width: 4.6 cm Urinary bladder is normal in appearance. Volume of 306 mL. The wall measures 2.8 mm IMPRESSION: No nephrolithiasis identified Electronically authenticated by: TACOS FERNANDEZ Date: 2022-08-15 08:35 Normal [facility] XR KUB 1 VIEWon 08-15-2022 XR KUB 1 VIEW EXAMINATION: XR KUB 1 VIEW HISTORY: H/O: urinary stone COMPARISON: No relevant comparison available. FINDINGS: KIDNEY/URETER - RIGHT: No visible renal or ureteral calcifications. KIDNEY/URETER - LEFT: No visible renal or ureteral calcifications. PELVIS: No visible ureteral calcifications. Any visible calcifications favor phleboliths. BOWEL: No abnormal dilation or deviation. Moderate stool in the right colon BONES: Moderate degenerative changes with rotatory levocurvature OTHER: Negative. No abnormal gaseous collections. IMPRESSION: No definite urinary tract calculi Electronically authenticated by: TACOS FERNANDEZ Date: 2022-08-15 09:25 Normal [facility] Formson 08-02-2022 Forms [id number] 0CD:127 Normal [facility] Reportson 08-02-2022 Lab Reports [id number]. 00CD:127 Normal [facility] Ambulatory Visit Summaryon 0 08-01-2022 Ambulatory Visit Summary ZAKIYA MCKENZIE :1945 Visit Date:08/01/2022 Ambulatory Visit Instructions Your Diagnosis Recurrent cystitis Personal history of kidney stones Tests Performed Urnls Dip Stick Auto w/o Microscopy POC 07818 KUB -- Results Pending -- US Renal -- Results Pending -- Please visit your patient portal for your results or contact your primary care physician. Your Care Team Attending Physician - DARRELL SARAVIA PA-C Primary Care Physician - BENNETT BANDA DO This Is Your Medications List Contact prescribing physician if questions or concerns amlodipine (amLODIPine 5 mg Tab) ascorbic acid (Vitamin C 500 mg Tab) aspirin (aspirin 81 mg oral tablet) atenolol (atenolol 25 mg Tab) bioflavonoids (bioflavonoids oral tablet) cyanocobalamin (Vitamin B-12 100 mcg oral tablet) lisinopril (lisinopril 20 mg Tab) lutein meloxicam (meloxicam 15 mg oral tablet) omeprazole (Prilosec 10 mg Cap-EC) pravastatin (pravastatin 40 mg Tab) vitamin E (Vitamin E 400 unit(s) Cap) [Image Removed: STOP]Stop taking these medications glucosamine (glucosamine hydrochloride 1500 mg oral tablet) meclizine (meclizine 12.5 mg Tab) sulfamethoxazole-trime thoprim (sulfamethoxazole-trim ethoprim 800 mg-160 mg Tab) ubiquinone (Co Q-10) Procedures Performed Colonoscopy (02/08/2011), Appendectomy, Cystoscopy, Hysterectomy, Knee. Discharge Vitals Heart Rate (Peripheral) 52 Blood Pressure 133/62 Height 160 cm Height 63 in Weight 75 kg Weight 165 lb BMI 29.3 Medications What How Much When Instructions Unchanged amlodipine (amLODIPine 5 mg Tab) 1 Tablets By Mouth Every day Contact prescribing physician if questions or concerns Unchanged ascorbic acid (Vitamin C 500 mg Tab) 1 Tablets By Mouth Every day Contact prescribing physician if questions or concerns Unchanged aspirin (aspirin 81 mg oral tablet) By Mouth Every day Contact prescribing physician if questions or concerns Unchanged atenolol (atenolol 25 mg Tab) 1 Tablets By Mouth Every day Contact prescribing physician if questions or concerns Unchanged bioflavonoids (bioflavonoids oral tablet) See instructions 1500 mg daily Contact prescribing physician if questions or concerns Unchanged cyanocobalamin (Vitamin B-12 100 mcg oral tablet) 1 Tablets By Mouth Every day Contact prescribing physician if questions or concerns Unchanged lisinopril (lisinopril 20 mg Tab) 1 Tablets By Mouth Every day Contact prescribing physician if questions or concerns Unchanged lutein See instructions Oral Daily Contact prescribing physician if questions or concerns Unchanged meloxicam (meloxicam 15 mg oral tablet) 1 Tablets By Mouth Every day Contact prescribing physician if questions or concerns Unchanged omeprazole (Prilosec 10 mg Cap-EC) 2 Capsules By Mouth Every day Contact prescribing physician if questions or concerns Unchanged pravastatin (pravastatin 40 mg Tab) 1 Tablets By Mouth Every day Contact prescribing physician if questions or concerns Unchanged vitamin E (Vitamin E 400 unit(s) Cap) 1 Capsules By Mouth Every day Contact prescribing physician if questions or concerns What How Much When Comments Stop Taking glucosamine (glucosamine hydrochloride 1500 mg oral tablet) 1 Tablets By Mouth Every day Stop Taking meclizine (meclizine 12.5 mg Tab) See instructions q 6 hrs prn dizziness Stop Taking sulfamethoxazole-trime thoprim (sulfamethoxazole-trim ethoprim 800 mg-160 mg Tab) Stop Taking ubiquinone (Co Q-10) 200 Milligram By Mouth Every day Test Results Urnls Dip Stick Auto w/o Microscopy POC 71644 (08/01/2022) Bilirubin Urine Dipstick - Negative Blood Urine Dipstick - Negative Glucose Urine Dipstick - Negative Ketones Urine Dipstick - Negative Leukocytes Urine Dipstick - Trace Nitrite Urine Dipstick - Negative Protein Urine Dipstick - Negative Specific [place] Urine Dipstick - 1.015 Urine Appearance Urine Dipstick - Clear Urine Color Urine Dipstick - Yellow Urobilinogen Urine Dipstick - Normal 0.2-1 EU/dl pH Urine Dipstick - 7 Allergies Tape (Unknown) Problems Ongoing - Any problem that you are currently receiving treatment for. Active rickets Arthritis Chronic GERD Endometriosis HTN (hypertension) Hypercalcemia Hyperlipidemia Nontoxic multinodular goiter Partially duplicated ureter Primary hyperparathyroidism Historical - Any problem that you are no longer receiving treatment for. History of kidney stones Normal [facility] Patient Educationon 08-01-19 Patient Education Obstetrics and Gynecology Urinary Tract Infection, Adult A urinary tract infection (UTI) is an infection of any part of the urinary tract. The urinary tract includes the kidneys, ureters, bladder, and urethra. These organs make, store, and get rid of urine in the body. Your health care provider may use other names to describe the infection. An upper UTI affects the ureters and kidneys (pyelonephritis). A lower UTI affects the bladder (cystitis) and urethra (urethritis). What are the causes? Most urinary tract infections are caused by bacteria in your genital area, around the entrance to your urinary tract (urethra). These bacteria grow and cause inflammation of your urinary tract. What increases the risk? You are more likely to develop this condition if: ? You have a urinary catheter that stays in place (indwelling). ? You are not able to control when you urinate or have a bowel movement (you have incontinence). ? You are female and you: ? Use a spermicide or diaphragm for control. ? Have low estrogen levels. ? Are . ? You have certain genes that increase your risk (genetics). ? You are sexually active. ? You take antibiotic medicines. ? You have a condition that causes your flow of urine to slow down, such as: ? An enlarged prostate, if you are male. ? Blockage in your urethra (stricture). ? A kidney stone. ? A nerve condition that affects your bladder control (neurogenic bladder). ? Not getting enough to drink, or not urinating often. ? You have certain medical conditions, such as: ? Diabetes. ? A weak disease-fighting system (immunesystem). ? Sickle cell disease. ? Gout. ? Spinal cord injury. What are the signs or symptoms? Symptoms of this condition include: ? Needing to urinate right away (urgently). ? Frequent urination or passing small amounts of urine frequently. ? Pain or burning with urination. ? Blood in the urine. ? Urine that smells bad or unusual. ? Trouble urinating. ? Cloudy urine. ? Vaginal discharge, if you are female. ? Pain in the abdomen or the lower back. You may also have: ? Vomiting or a decreased appetite. ? Confusion. ? Irritability or tiredness. ? A fever. ? Diarrhea. The first symptom in older adults may be confusion. In some cases, they may not have any symptoms until the infection has worsened. How is this diagnosed? This condition is diagnosed based on your medical history and a physical exam. You may also have other tests, including: ? Urine tests. ? Blood tests. ? Tests for sexually transmitted infections (STIs). If you have had more than one UTI, a cystoscopy or imaging studies may be done to determine the cause of the infections. How is this treated? Treatment for this condition includes: ? Antibiotic medicine. ? Egvi-ipj-ttnlmxw medicines to treat discomfort. ? Drinking enough water to stay hydrated. If you have frequent infections or have other conditions such as a kidney stone, you may need to see a health care provider who specializes in the urinary tract (urologist). In rare cases, urinary tract infections can cause sepsis. Sepsis is a life-threatening condition that occurs when the body responds to an infection. Sepsis is treated in the hospital with IV antibiotics, fluids, and other medicines. Follow these instructions at home: Medicines ? Take tsnm-nhf-ydlcpeo and prescription medicines only as told by your health care provider. ? If you were prescribed an antibiotic medicine, take it as told by your health care provider. Do not stop using the antibiotic even if you start to feel better. General instructions ? Make sure you: ? Empty your bladder often and completely. Do not hold urine for long periods of time. ? Empty your bladder after sex. ? Wipe from front to back after a bowel movement if you are female. Use each tissue one time when you wipe. ? Drink enough fluid to keep your urine pale yellow. ? Keep all follow-up visits as told by your health care provider. This is important. Contact a health care provider if: ? Your symptoms do not get better after 1?2 days. ? Your symptoms go away and then return. Get help right away if you have: ? Severe pain in your back or your lower abdomen. ? A fever. ? Nausea or vomiting. Summary ? A urinary tract infection (UTI) is an infection of any part of the urinary tract, which includes the kidneys, ureters, bladder, and urethra. ? Most urinary tract infections are caused by bacteria in your genital area, around the entrance to your urinary tract (urethra). ? Treatment for this condition often includes antibiotic medicines. ? If you were prescribed an antibiotic medicine, take it as told by your health care provider. Do not stop using the antibiotic even if you start to feel better. ? Keep all follow-up visits as told by your health care provider. This is important. This in (more content not included)... Normal [facility] Urology Office/Clinic Noteon 08-01-2022 Urology Office/Clinic Note Chief Complaint New Patient Recurrent UTI HPI Staff New pt. Never before seen in our office. Recurrent UTI's. - C&S 06/27/22 *Tx'd w/Bactrim BID x5days (Culture had no growth) Light Growth of Mixed Genitalia on C&S done 04/04/22 - C&S 08/02/21 (No Growth) + C&S 04/20/21 *E Coli + C&S 07/28/20 *E Coli Renal US 06/14/[address] Gay last in 2007 for kidney stones. Pt states that she gets frequency and bladder spasms when she feels like she has a UTI. She states that she has a spot on her leg and a spot on her arm that get red when she feels like she has an infection. Pt consumes roughly 36oz of fluid a day maximum. Pt voids every 3-4 hours if not longer in-between bathroom trips and has time to make it to the bathroom. Nocturia 2x. Stops fluid intake 1-2 hours before bed. Pt feels empty when she is done voiding, practices double voids. Pt states that when she had culture proven infections she has Dysuria, fever, chills N/V. History of Present Illness staff HPI reviewed and agree. Review of Systems PHQ Score Initial Depression Screen Score: 0 no fever, chills, malaise, myalgia. no rash/lesions. no chest pain, palpitations, or SOB. no abdominal pain, nausea, vomiting. no unilateral calf swelling, redness, pain Physical Exam Vitals & Measurements HR: 52(Peripheral) BP: 133/62 HT: 63 in HT: 160 cm WT: 75 kg WT: 165 lb BMI: 29.3 General: nontoxic, NAD Mouth: moist mucosa Lungs: normal respiratory effort Cardio: regular rate, good distal perfusion Abdomen: nondistended, no suprapubic distention or tenderness, no CVA tenderness Neurologic: Grossly normal Skin: No rashes or suspicious lesions Assessment/Plan 1. Recurrent cystitis (N30.90: Cystitis, unspecified without hematuria) reports episodes every few months where she gets bladder spasms, SP pain, frequency, urgency. she notices that she has several eczema spots on her arm/leg that become red/itchy/inflamed at the same time as these bladder sx present. increases fluids and takes OTC cystex and the sx resolve within a few days. (uses topical cream for the skin lesions.) has had urines checked multiple times during these episodes and they're always negative. discussed that it does not appear to be infectious cause. we spoke about noninfectious causes of cystitis like bladder irritants, hygiene products, bubblebaths/hot tubs, IC, medications, etc. we spoke about potential eval including cystoscopy, but we agree this does not seem necessary at this time since her current management works well. pt will contact office if episodes increase in frequency, severity, or stop responding to current tx measures. pt has had true culture-proven UTIs a couple times in the past few years. however these present differently than above. typically has fever, chills, nausea/vomiting. these are not happening even once per year, so we agree that preventive measures (d-mannose, cranberry, probiotics, estrogen cream, etc) would be overkill right now. if frequency of true UTIs increases then we would consider these measures. we did discuss increasing overall fluid intake as 36oz/daily is pretty low. pt will work on doubling this but will increase slow and steady. Ordered: E&M of New Patient Moderate 45-59 Min 26496 2. Personal history of kidney stones (Z87.442: Personal history of urinary calculi) hasn't had imaging in at least 5 yrs. denies flank pain, gross hematuria. will check KUB/DEBORAH to ensure no significant stone burden. call pt w results. Ordered: E&M of New Patient Moderate 45-59 Min 50946 US Renal XR Abdomen 1 View Orders: Measure Post Void residual urine and/or bladder capacity by US- non-imaging 52455 Urnls Dip Stick Auto w/o Microscopy POC 59495 f/u PRN pending above. Follow-up With When Contact Information MANJIT LUCAS, DARRELL E, URL Only if needed [address] [place] [address] [facility] (1) Additional Instructions: Patient Education Urinary Tract Infection, Adult Problem List/Past Medical History Ongoing Active rickets Arthritis Chronic GERD Endometriosis HTN (hypertension) Hypercalcemia Hyperlipidemia Nontoxic multinodular goiter Partially duplicated ureter Primary hyperparathyroidism Historical History of kidney stones Procedure/Surgical History Colonoscopy (02/08/2011), Appendectomy, Cystoscopy, Hysterectomy, Knee. Medications amLODIPine 5 mg Tab, 5 mg= 1 tab(s), Oral, Daily aspirin 81 mg oral tablet, Oral, Daily atenolol 25 mg Tab, 25 mg= 1 tab(s), Oral, Daily bioflavonoids oral tablet, See Instructions lisinopril 20 mg Tab, 20 mg= 1 tab(s), Oral, Daily lutein, See Instructions meloxicam 15 mg oral tablet, 15 mg= 1 tab(s), Oral, Daily pravastatin 40 mg Tab, 40 mg= 1 tab(s), Oral, Daily Prilosec 10 mg Cap-EC, 20 mg= 2 cap(s), Oral, Daily Vitamin B-12 100 mcg oral tablet, 100 mcg= 1 tab(s), Oral, Daily Vitamin C 500 mg Tab, 500 mg= 1 tab(s), Oral, Daily Vitam (more content not included)... Normal [facility] Comment on above: Result Comment: Elec tronically Signed By: DARRELL SARAVIA PA-C\.br\Date and Time Signed: 08/01/22 10:52 EST CULTURE URINEon 06-27-2022 CULTURE URINE Culture Observations : NO GROWTH. Normal [facility] Comment on above: Performed By: #### U RCX #### [facility] [address] [address] [address] Sheryl Zaragoza UA RANDOM W/MICROSCOPICon BACTERIA NONE SEEN Normal NONE SEEN [facility] Comment on above: Performed By: #### U RCX #### [facility] [address] [address] [address] Sheryl Zaragoza Bilirubin Ql (U) Negative Normal NEGATIVE [facility] Comment on above: Performed By: #### U RCX #### [facility] [address] [place] [address] [address] Sheryl Zaragoza CAST SEEN Abnormal NONE SEEN [facility] Comment on above: Performed By: #### U RCX #### [facility] [address] [place] [address] [address] Sheryl Zaragoza Clarity (U) CLEAR Normal CLEAR [facility] Comment on above: Performed By: #### U RCX #### [facility] [address] [place] [address] Dr. Sheryl Zaragoza Color (U) YELLOW Normal YELLOW [facility] Comment on above: Performed By: #### U RCX #### [facility] [address] [place] [address] Dr. Sheryl Zaragoza Crystals LM Nom (Urine sed) NONE SEEN Normal NONE SEEN [facility] Comment on above: Performed By: #### U RCX #### [facility] [address] [place] [address] Dr. Sheryl Zaragoza Epithelial cells LM Ql (Urine sed) RARE Normal NONE SEEN /RARE [facility] Comment on above: Performed By: #### U RCX #### [facility] [address] [place] [address] Dr. Sheryl Zaragoza Glucose Ql (U) Negative Normal NEGATIVE [facility] Comment on above: Performed By: #### U RCX #### [facility] [address] [place] [address] Dr. Sheryl Zaragoza Hemoglobin Ql (U) Negative Normal NEGATIVE [facility] Comment on above: Performed By: #### U RCX #### [facility] [address] [place] [address] Dr. Sheryl Zaragoza Ketones Ql (U) TRACE Abnormal NEGATIVE [facility] Comment on above: Performed By: #### U RCX #### [facility] [address] [place] [address] Dr. Sheryl Zaragoza LEUKOCYTES Negative Normal NEGATIVE [facility] Comment on above: Performed By: #### U RCX #### [facility] [address] [place] [address] Dr. Sheryl Zaragoza MUCOUS NONE SEEN Normal NONE SEEN [facility] Comment on above: Performed By: #### U RCX #### [facility] [address] [address] [address] Sheryl Zaragoza Nitrite Ql (U) Negative Normal NEGATIVE [facility] Comment on above: Performed By: #### U RCX #### [facility] [address] [place] [address] Dr. Sheryl Zaragoza pH (U) 6.5 [pH] Normal 5-9 [facility] Comment on above: Performed By: #### U RCX #### [facility] [address] [place] [address] Dr. Sheryl Zaragoza RBC 0-2 Normal 0-2 [facility] Comment on above: Performed By: #### U RCX #### [facility] [address] [place] [address] Dr. Sheryl Zaragoza SPEC GRAVITY 1.010 Normal 1.005-<=1.02 5 [facility] Comment on above: Performed By: #### U RCX #### [facility] [address] [place] [address] Dr. Sheryl Zaragoza UA PROTEIN Negative Normal NEGATIVE/ TRACE [facility] Comment on above: Performed By: #### U RCX #### [facility] [address] [place] [address] Dr. Sheryl Zaragoza Urobilinogen Qn (U) 0.2 {Sena'U}/dL Normal 0.2 - 1. 0 [facility] Comment on above: Performed By: #### U RCX #### [facility] [address] [place] [address] Dr. Sheryl Zaragoza WBC 0-2 Abnormal NONE SEEN [facility] Comment on above: Performed By: #### U RCX #### [facility] [address] [place] [address] Dr. Sheryl Zaragoza CULTURE URINEon 04-04-2022 CULTURE URINE Culture Observations : LIGHT GROWTH OF MIXED GENITAL JUDY. NO POTENTIAL PATHOGENS SEEN. Normal [facility] Comment on above: Performed By: #### U RCX #### [facility] [address] [place] [address] Dr. Sheryl Zaragoza UA RANDOM W/MICROSCOPICon BACTERIA NONE SEEN Normal NONE SEEN [facility] Comment on above: Performed By: #### U AMIC #### [facility] [address] [address] [address] Sheryl Zaragoza Bilirubin Ql (U) Negative Normal NEGATIVE [facility] Comment on above: Performed By: #### U AMIC #### [facility] [address] [place] [address] Dr. Sheryl Zaragoza CAST NONE SEEN Normal NONE SEEN [facility] Comment on above: Performed By: #### U AMIC #### [facility] [address] [place] [address] Dr. Sheryl Zaragoza Clarity (U) CLEAR Normal CLEAR [facility] Comment on above: Performed By: #### U AMIC #### [facility] [address] [place] [address] Dr. Sheryl Zaragoza Color (U) LT. YELLOW Normal YELLOW [facility] Comment on above: Performed By: #### U AMIC #### [facility] [address] [place] [address] Dr. Sheryl Zaragoza Crystals LM Nom (Urine sed) NONE SEEN Normal NONE SEEN [facility] Comment on above: Performed By: #### U AMIC #### [facility] [address] [place] [address] Dr. Sheryl Zaragoza Epithelial cells LM Ql (Urine sed) FEW Abnormal NONE SEEN /RARE [facility] Comment on above: Performed By: #### U AMIC #### [facility] [address] [place] [address] Dr. Sheryl Zaragoza Glucose Ql (U) Negative Normal NEGATIVE [facility] Comment on above: Performed By: #### U AMIC #### [facility] [address] [place] [address] Dr. Sheryl Zaragoza Hemoglobin Ql (U) Negative Normal NEGATIVE [facility] Comment on above: Performed By: #### U AMIC #### [facility] [address] [place] [address] Dr. Sheryl Zaragoza Ketones Ql (U) Negative Normal NEGATIVE [facility] Comment on above: Performed By: #### U AMIC #### [facility] [address] [address] [address] Sheryl Zaragoza LEUKOCYTES Negative Normal NEGATIVE [facility] Comment on above: Performed By: #### U AMIC #### [facility] [address] [place] [address] Dr. Sheryl Zaragoza MUCOUS NONE SEEN Normal NONE SEEN [facility] Comment on above: Performed By: #### U AMIC #### [facility] [address] [address] [address] Sheryl Zaragoza Nitrite Ql (U) Negative Normal NEGATIVE [facility] Comment on above: Performed By: #### U AMIC #### [facility] [address] [place] [address] Dr. Sheryl Zaragoza pH (U) 6.0 [pH] Normal 5-9 [facility] Comment on above: Performed By: #### U AMIC #### [facility] [address] [place] [address] Dr. Sheryl Zaragoza RBC NONE SEEN Abnormal 0-2 [facility] Comment on above: Performed By: #### U AMIC #### [facility] [address] [place] [address] Dr. Sheryl Zaragoza SPEC GRAVITY 1.010 Normal 1.005-<=1.02 5 [facility] Comment on above: Performed By: #### U AMIC #### [facility] [address] [address] [address] Sheryl Zaragoza UA PROTEIN Negative Normal NEGATIVE/ TRACE [facility] Comment on above: Performed By: #### U AMIC #### [facility] [address] [address] [address] Sheryl Zaragoza Urobilinogen Qn (U) 0.2 {Sena'U}/dL Normal 0.2 - 1. 0 [facility] Comment on above: Performed By: #### U AMIC #### [facility] [address] [place] [address] Dr. Sheryl Zaragoza WBC 0-2 Abnormal NONE SEEN [facility] Comment on above: Performed By: #### U [facility] #### [facility] [address] [place] [address] Dr. Sheryl Zaragoza XR LSPINE 2_3 VIEWSon 2021 XR LSPINE 2_3 VIEWS EXAMINATION: XR LSPI NE 2_3 VIEWS HISTORY: Low back pain COMPARISON: No relevant comparison available. FINDINGS: BONES: Mild levocurvature centered at L2. Moderate to severe diffuse degenerative spondylosis and facet osteoarthropathy most significant at L1-L2. 10% anterior wedge compression fracture T12, endplate sclerosis suggests chronic change DISC SPACES: Interbody fusion L2-L3 severe disc space narrowing L1-L2 and L5-S1 with vacuum disc PARASPINOUS: Negative. No paraspinous abnormality is seen. OTHER: Vascular calcifications IMPRESSION: Moderate to severe diffuse degenerative change Electronically authenticated by: TACOS FERNANDEZ Date: 2022-03-13 18:30 Normal [facility] Vital Signs Date Time Vital Sign Value Performing Clinician Facility 05-28-2023 11:21-0500 Blood Pressure Location DARRELL SARAVIA [facility] 05-28-2023 11:21-0500 Diastolic blood pressure 79 mm[Hg] DARRELL MANJIT [facility] 05-28-2023 11:21-0500 Heart rate 80 /min DARRELL MANJIT [facility] 05-28-2023 11:21-0500 Respiratory rate 16 /min DARRELL MANJIT [facility] 05-28-2023 11:21-0500 Systolic blood pressure 128 mm[Hg] DARRELL MANJIT [facility] 04-30-2023 13:48-0500 Blood Pressure Location Diomedes YBARRA [facility] 04-30-2023 13:48-0500 Diastolic blood pressure 72 mm[Hg] Diomedes MONTESL [facility] 04-30-2023 13:48-0500 Heart rate 72 /min Diomedes MONTESL [facility] 04-30-2023 13:48-0500 Respiratory rate 16 /min Diomedes MONTESL [facility] 04-30-2023 13:48-0500 Systolic blood pressure 138 mm[Hg] Diomedes MONTESL [facility] 04-09-2023 11:30-0400 Body height 160.02 cm Bennett Ball Other [facility] Other 04-09-2023 11:30-0400 Body mass index (BMI) [Ratio] 30.18 kg/m2 Bennett Ball Other [facility] Other 04-09-2023 11:30-0400 Body weight 77.29 kg Bennett Ball Other [facility] Other 04-09-2023 11:30-0400 Diastolic blood pressure 60 mm[Hg] Bennett Ball Other [facility] Other 04-09-2023 11:30-0400 Respiratory rate 12 /min Bennett Ball Other [facility] Other 04-09-2023 11:30-0400 Systolic blood pressure 120 mm[Hg] Bennett Ball Other [facility] Other 11-09-2022 10:30-0400 Body height 160.02 cm Bennett Ball Other [facility] Other 11-09-2022 10:30-0400 Body mass index (BMI) [Ratio] 29.51 kg/m2 Bennett Ball Other [facility] Other 11-09-2022 10:30-0400 Body weight 75.57 kg Bennett Ball Other [facility] Other 11-09-2022 10:30-0400 Diastolic blood pressure 73 mm[Hg] Bennett Ball Other [facility] Other 11-09-2022 10:30-0400 Respiratory rate 16 /min Bennett Ball Other [facility] Other 11-09-2022 10:30-0400 Systolic blood pressure 147 mm[Hg] Bennett Ball Other [facility] Other 08-01-2022 09:49-0500 Blood Pressure Location DARRELLEDNA SARAVIA [facility] 08-01-2022 09:49-0500 Diastolic blood pressure 62 mm[Hg] DARRELL ASRAVIA [facility] 08-01-2022 09:49-0500 Heart rate 52 /min DARRELL SARAVIA [facility] 08-01-2022 09:49-0500 Systolic blood pressure 133 mm[Hg] DARRELL SARAVIA [facility] Encounters Encounter Date Encounter Type Care Provider Facility Start: 07-24-2023 End: 07-25-2023 ambulatory GERMANIA SANDOVAL Not Available Start: 07-24-2023 End: 07-24-2023 Office outpatient visit 10 minutes Germania Sandoval [employer]INEER Work Phone: [facility] Comment on above: Status post total ri ght knee replacement (Primary Dx) Start: 05-30-2023 End: 05-30-2023 ambulatory Bennett Ball Other [facility] Other Start: 05-30-2023 Telephone encounter Bennett Banda MAEVE G [facility] Start: 05-28-2023 End: 05-29-2023 ambulatory DARRELL Neli MANJIT Facility:[facility] Start: 05-28-2023 End: 05-28-2023 Patient encounter procedure DARRELL PORTILLORY [facility] Start: 05-22-2023 End: 05-23-2023 ambulatory Diomedes R NILL Facility:CD:[id number] Start: 05-06-2023 End: 05-07-2023 ambulatory DARRELL SARAVIA Facility:[facility] Start: 05-06-2023 End: 05-06-2023 Patient encounter procedure [facility]ILLORY [facility] Start: 04-30-2023 End: 05-01-2023 ambulatory Diomedes R NILL Facility:[facility] Start: 04-30-2023 End: 04-30-2023 Patient encounter procedure Diomedes R NILL [facility] Start: 04-18-2023 End: 04-18-2023 ambulatory Bennett Banda Other [facility] Other Start: 04-18-2023 Telephone encounter Bennett MCFARLANE G [facility] Start: 04-16-2023 ambulatory Diomedes NILL Facility:[facility] Start: 04-11-2023 ambulatory Diomedes NILL Facility:[facility] Start: 04-09-2023 End: 04-09-2023 ambulatory Bennett Solo Other [facility] Other Start: 04-09-2023 Office outpatient vi sit 25 minutes Bennett Banda [facility] Start: 04-01-2023 End: 04-01-2023 ambulatory Bennett Solo Other [facility] Other Start: 04-01-2023 Telephone encounter Bennett Banda FP [facility] Start: 03-27-2023 End: 03-27-2023 ambulatory Bennett Solo Other [facility] Other Start: 03-27-2023 Telephone encounter Bennett Solo FP [facility] Start: 12-14-2022 End: 12-14-2022 ambulatory Bennett Solo Other [facility] Other Start: 12-14-2022 Telephone encounter Bennett Banda FP [facility] Start: 12-13-2022 End: 12-13-2022 ambulatory Bennett Solo Other [facility] Other Start: 12-13-2022 Telephone encounter Bennett Solo FP [facility] Start: 12-12-2022 End: 12-12-2022 ambulatory Bennett Banda Other [facility] Other Start: 12-12-2022 Telephone encounter Bennett Solo FP [facility] Start: 11-09-2022 End: 11-09-2022 ambulatory Bennett Banda Other [facility] Other Start: 11-09-2022 Encounter for genera l adult medical examination without abnormal findings Bennett Banda [facility] Start: 11-09-2022 Periodic preventive med est patient 65yrs& older Bennett Banda [facility] Start: 10-25-2022 Encounter for genera l adult medical examination without abnormal findings DR BENNETT BANDA [facility] Start: 10-19-2022 End: 10-20-[address] BENNETT BANDA Facility:[facility] Start: 10-19-2022 End: 10-20-2022 Encounter for general adult medical examination without abnormal findings DR BENNETT BANDA Facility:[facility] Start: 08-22-2022 End: 08-23-[address] BENNETT BANDA Facility:[facility] Start: 08-16-2022 ambulatory Diomedes YBARRA Facility:[facility] Start: 08-15-2022 End: 08-16-[address] BENNETT BANDA Facility:[facility] Start: 08-01-2022 End: 08-02-2022 ambulatory DARRELL SARAVIA Facility:[facility] Start: 08-01-2022 End: 08-01-2022 Patient encounter procedure DARRELL SARAVIA [facility] Start: 06-27-2022 End: 06-28-[address] BENNETT BANDA Facility:[facility] Start: 04-04-2022 End: 04-04-[address] BENNETT BANDA Facility:[facility] Start: 03-13-2022 End: 03-14-[address] BENNETT BANDA Facility:[facility] Start: 02-14-2022 End: 03-01-[address] BENNETT BANDA Facility:[facility] Start: 10-19-2021 Adult health examination Yuriy Banda Other [facility] Other Start: 09-02-2019 Preoperative cardiovascular examination Bennett Banda Other [facility] Other Procedures Date Procedure Procedure Detail Performing Clinician Start: 07-24-2023 Radiologic examinati on knee 1/2 views Germania Sandoval NP Work Phone: Start: 03-31-2015 General examination of patient Bennett Banda Other Start: 02-08-2011 Colonoscopy DARRELL YARBROUGH Appendectomy DARRELL SARAVIA section Diomedes NIL L Cystoscopy DARRELL SARAVIA Hysterectomy DARRELL SARAVIA Knee region structur e (body structure) DARRELL SARAVIA Lithotripsy Diomedes NILL Repair of joint of r ight knee Diomedes NILL Screening for malign ant neoplasm of breast Bennett Banda Other Screening mammography Letty Banda Other Total abdominal hysterectomy with bilateral salpingo-oophorectomy Diomedes YBARRA Plan of Treatment Date Care Activity Detail Author Start: 06-02-2024 ambulatory Ambulatory Facility:[facility] Start: 01-16-2024 End: 01-16-2024 Patient encounter procedure 01/16/2024 1:15 PM EDT Office Visit [facility] [address] [place] [address] Xenia Matute MD [address] [place] [address] [facility] Start: 02-15-2023 Influenza vaccination Influenza Vacc ine (#1) [facility] Immunizations Immunization Date Immunization Notes Care Provider Fa cili 03-17-2023 influenza virus vaccine, unspecified formulation Diomedes YBARRA [facility] 04-17-2022 influenza virus vaccine, unspecified formulation Germania Sandoval NP Work Phone: [facility] 03-28-2022 SARS-CoV-2 (COVID-19 ) [id number] DARRELL SARAVIA [facility] Comment on above: Result Comment: 2022: [id number] 08-18-2021 tetanus and diphther ia toxoids, adsorbed, preservative free, for adult use (5 Lf of tetanus toxoid and 2 Lf of diphtheria toxoid) Bennett Banda Other [facility] Other 04-07-2021 SARS-CoV-2 (COVID-19 ) [id number] vaccine DARRELL SARAVIA [facility] 07-13-2020 SARS-CoV-2 (COVID-19 ) mRNA-1273 vaccine DARRELL SARAVIA [facility] 06-15-2020 SARS-CoV-2 (COVID-19 ) [id number] vaccine DARRELL MANJIT [facility] 03-17-2019 influenza virus vaccine, unspecified formulation DARRELL MANJIT [facility] 03-29-2018 influenza virus vaccine, unspecified formulation DARRELL MANJIT [facility] 07-01-2017 influenza virus vaccine, unspecified formulation DARRELL MANJIT [facility] 05-17-2016 influenza virus vaccine, unspecified formulation DARRELL MANJIT [facility] 04-07-2015 pneumococcal conjuga te vaccine, 13 valent DARRELL MANJIT [facility] 03-22-2015 influenza virus vaccine, split virus (incl. purified surface antigen) Bennett Banda Other [facility] Other 03-21-2015 pneumococcal polysaccharide vaccine, 23 valent DARRELL MANJIT [facility] 04-22-2013 tetanus and diphther ia toxoids, adsorbed, preservative free, for adult use (5 Lf of tetanus toxoid and 2 Lf of diphtheria toxoid) Bennett Banda Other [facility] Other NEGATED: Highlighted row has not occurred!03-05-2019 influenza virus vaccine, unspecified formulation DARRELL SARAVIA [facility] Comment on above: Result Comment: Flu vaccine not offered at Endocrinology. Will receive through employer in March Payers Date Payer Category Payer Unknown [id number] 2022 Unknown BCBS BCBS [id number] 2022-Present [phone] [address] [place] [address] [id number] 2019 Unknown [id number] 1959 Unknown [id number] 1947 Unknown [id number] 1947 Unknown [id number] [id number] 1947 Unknown [id number] [id number] 1947 Unknown [id number] 2.16.840.1.380924.3.579.2.593 1947 Unknown [id number] 2.16.840.1.342234.3.579.2.593 1947 Unknown [id number] 2.16.840.1.297185.3.579.2.593 1947 Unknown [id number] 2.16.840.1.766175.3.579.2.593 1947 Unknown [id number] 2.16.840.1.053145.3.579.2.727 1947 Unknown [id number] 2.16.840.1.823740.3.579.2.727 1947 Unknown [id number] 2.16.840.1.467019.3.579.2.727 1947 Unknown [id number] 2.16.840.1.702793.3.579.2.727 1947 Unknown [id number] 2.16.840.1.376877.3.579.2.727 1947 Unknown [id number] 2.16.840.1.051360.3.579.2.727 1947 Unknown [id number] 2.16.840.1.156562.3.579.2.727 1947 Unknown [id number] 2.16.840.1.597583.3.579.2.1259 1947 Unknown [id number] Social History Date Type Detail Facility Start: 03-05-2019 End: 01-14-2023 Tobacco smoking status [facility] smoked [facility] Tobacco smoking status Never [facility] Start: 07-24-2023 Sex Assigned At Female F [facility] Start: 01-14-2023 Tobacco use and exposure Smokeless tobacco non-user [facility] Start: 07-24-2023 Alcohol intake Ex-drinker (finding) [facility] Start: 07-24-2023 History of Social function [facility] Start: 1945 Sex Assigned At Not on file [facility] Functional Status Date Assessment Result Facility 05-28-2023 Functional Status N/A [facility] 04-30-2023 Functional Status N/A [facility] 08-01-2022 Functional Status N/A [facility] Clinical Notes 03-13-2022 to 07-24-2023 Germania Sandoval NP - 07/24/2023 11:45 AM EST Note Date & Type Note Facility 07-24-2023 History of Present illness Narrative Subjective Patient ID: Zakiya Mckenzie is a 78 y.o. female. 4 years s/p RT TKA (dos 07/06/19) Denies any issues or concerns Intermittent numbness anterior knee has resolved. Notes she gets this very seldom. Denies pain. Taking TYL for athritis prn Pt is pleased with outcome of surgery [place]: XR [facility] 06/29/20, 07/12/21, 07/18/22, 07/24/23 Objective Ortho Exam Knee Musculoskeletal Exam Inspection Right Erythema: none Effusion: none Ecchymosis: none Deformity: none Alignment: normal Incision: well-healed Palpation Right Tenderness: none Range of Motion Right Active extension: 0 Active flexion: 120 Instability Instability additional comments: No ligament laxity, firm endpoint XR knee 1 or 2 views right Imaging Result: July 24, 2023 x-rays AP weight-bearing bilateral knees and lateral of the right knee demonstrate cemented knee replacement in good position alignment without signs of loosening fracture or failure. Impression: Stable appearance of right total knee replacement Vasu Yun D.O. Assessment/Plan Encounter Diagnoses: ICD-10-CM 1. Status post total right knee replacement Z96.651 XR knee 1 or 2 views right Activities as tolerated, f/U prn documented in this encounter [facility] 05-28-2023 Hospital Discharge instructions Patient Education 05/28/2023 12:00:14 Urinary Tract Infection, Adult Urinary Tract Infection, Adult A urinary tract infection (UTI) is an infection of any part of the urinary tract. The urinary tract includes the kidneys, ureters, bladder, and urethra. These organs make, store, and get rid of urine in the body. An upper UTI affects the ureters and kidneys. A lower UTI affects the bladder and urethra. What are the causes? Most urinary tract infections are caused by bacteria in your genital area around your urethra, where urine leaves your body. These bacteria grow and cause inflammation of your urinary tract. What increases the risk? You are more likely to develop this condition if: You have a urinary catheter that stays in place. You are not able to control when you urinate or have a bowel movement (incontinence). You are female and you: ?Use a spermicide or diaphragm for control. ?Have low estrogen levels. ?Are . You have certain genes that increase your risk. You are sexually active. You take antibiotic medicines. You have a condition that causes your flow of urine to slow down, such as: ?An enlarged prostate, if you are male. ?Blockage in your urethra. ?A kidney stone. ?A nerve condition that affects your bladder control (neurogenic bladder). ?Not getting enough to drink, or not urinating often. You have certain medical conditions, such as: ?Diabetes. ?A weak disease-fighting system (immunesystem). ?Sickle cell disease. ?Gout. ?Spinal cord injury. What are the signs or symptoms? Symptoms of this condition include: Needing to urinate right away (urgency). Frequent urination. This may include small amounts of urine each time you urinate. Pain or burning with urination. Blood in the urine. Urine that smells bad or unusual. Trouble urinating. Cloudy urine. Vaginal discharge, if you are female. Pain in the abdomen or the lower back. You may also have: Vomiting or a decreased appetite. Confusion. Irritability or tiredness. A fever or chills. Diarrhea. The first symptom in older adults may be confusion. In some cases, they may not have any symptoms until the infection has worsened. How is this diagnosed? This condition is diagnosed based on your medical history and a physical exam. You may also have other tests, including: Urine tests. Blood tests. Tests for STIs (sexually transmitted infections). If you have had more than one UTI, a cystoscopy or imaging studies may be done to determine the cause of the infections. How is this treated? Treatment for this condition includes: Antibiotic medicine. Tsab-bke-rxbrryc medicines to treat discomfort. Drinking enough water to stay hydrated. If you have frequent infections or have other conditions such as a kidney stone, you may need to see a health care provider who specializes in the urinary tract (urologist). In rare cases, urinary tract infections can cause sepsis. Sepsis is a life-threatening condition that occurs when the body responds to an infection. Sepsis is treated in the hospital with IV antibiotics, fluids, and other medicines. Follow these instructions at home: Medicines Take ncdb-wij-bpzdrmr and prescription medicines only as told by your health care provider. If you were prescribed an antibiotic medicine, take it as told by your health care provider. Do not stop using the antibiotic even if you start to feel better. General instructions Make sure you: ?Empty your bladder often and completely. Do not hold urine for long periods of time. ?Empty your bladder after sex. ?Wipe from front to back after urinating or having a bowel movement if you are female. Use each tissue only one time when you wipe. Drink enough fluid to keep your urine pale yellow. Keep all follow-up visits. This is important. Contact a health care provider if: Your symptoms do not get better after 1 2 days. Your symptoms go away and then return. Get help right away if: You have severe pain in your back or your lower abdomen. You have a fever or chills. You have nausea or vomiting. Summary A urinary tract infection (UTI) is an infection of any part of the urinary tract, which includes the kidneys, ureters, bladder, and urethra. Most urinary tract infections are caused by bacteria in your genital area. Treatment for this condition often includes antibiotic medicines. If you were prescribed an antibiotic medicine, take it as told by your health care provider. Do not stop using the antibiotic even if you start to feel better. Keep all follow-up visits. This is important. This information is not intended to replace advice given to you by your health care provider. Make sure you discuss any questions you have with your health care provider. Document Revised: 01/13/2021 Document Reviewed: 01/13/2021 [employer] Patient Education 2022 [employer]. Follow Up Care 04/29/2023 08:25:06 With:DARRELL SARAVIA PA-C, VI Address: When:1 year [facility] 04-30-2023 Note Chief Complaint consultation for colonoscopy HPI Staff 78 year old female presents on consultation from Dr. Banda for screening colonoscopy. Denies abdominal or rectal pain. No rectal bleeding or change in bowel habits. Denies nausea or vomiting. No unexplained weight loss. Last colonoscopy completed 01/2011-normal. No known family history of colon cancer. History of Present Illness 78 yo female with h/o htn, hyperlipidemia, hypercholesterolemia, GERD, referred for colorectal screening; denies change in bms or blood in stools; no abdominal complaints; denies asa or NSAID use, no SBE prophylaxis; abdominal operations significant for appendectomy, , and HANANE with BSO; last colonoscopy 2010, wnl; no fmhx of GI malignancy or IBD; no tobacco use. Review of Systems PHQ Score Initial Depression Screen Score: 0 SCORE ROS - Provider Constitutional: no fever, no sweats, no weight loss. Eyes: yes glasses, no blurred vision, no visual loss. ENMT: no dentures, no hoarseness, no swallowing difficulties, no hearing loss, no ear infection(s), no nose bleeds. Cardiovascular: normal blood pressure, no chest pain, regular heartbeat, no heart murmur. Respiratory: no shortness of breath, no cough, no asthma, no wheezing. Gastrointestinal: no nausea, no vomiting, no diarrhea, no constipation, no blood in stool, no change in bowel habits, no abdominal pain, no hepatitis. Genitourinary: no kidney stones, no urine infection, no dysuria. Musculoskeletal: no pain, no weakness. Skin: no changing moles, no rash, no skin lumps. Neurologic: no seizures, no epilepsy, no headache. Psychiatric: no emotional or psychiatric problem. Heme/Lymph: no bleeding problems, no anemia, no blood clots, no transfusions. Allergy/Immunologic: no swollen lymph nodes/glands, no IV drug abuse. Other: Additional ROS info: Except as noted in the above Review of Systems and in the History of Present Illness, all other systems have been reviewed and are negative or noncontributory. Physical Exam Vitals & Measurements HR: 72(Peripheral) RR: 16 BP: 138/72 HT: 63 in HT: 160 cm WT: 77.1 kg WT: 169.62 lb BMI: 30.12 HEENT: normal conjunctiva, sclera clear, no scleral icterus, EOM intact, PERRLA, oral mucosa moist without lesions. Neck: trachea midline, no mass, symmetric, no thyromegaly or nodules, no adenopathy Respiratory: lungs CTA, respirations non labored. Cardiovascular: regular rate and rhythm, no murmur, no pedal edema or varicosities. Gastrointestinal: soft, non distended, no tenderness, no masses, no palpable hernias, diastasis recti no, no hepatosplenomegaly; normal bs Lymphatic: no cervical adenopathy, no supraclavicular adenopathy. Musculoskeletal: normal gait, digits and nails without infection, nodes, cyanosis, clubbing. Skin: no rashes, no lesions, no ulcers, no subcutaneous nodules, induration. Psychiatric/Neuro: oriented to time, place, person, judgement normal, affect appropriate for age, insight intact, no focal deficits. Tests: review of old records completed , Discussed surgical options, risks, and possible complications with patient. Assessment/Plan 1. Screening for malignant neoplasm of colon (Z12.11: Encounter for screening for malignant neoplasm of colon) plan colonoscopy under anesthesia, informed consent obtained. Follow-up No qualifying data available Problem List/Past Medical History Ongoing Allergic rhinitis Arthritis BMI 30.0-30.9,adult Carotid bruit Chronic GERD Endometriosis History of nephrolithiasis HTN (hypertension) Hypercalcemia Hypercholesterolemia Hyperlipidemia Nontoxic multinodular goiter Obesity Osteopenia Partially duplicated ureter Peripheral venous insufficiency Primary hyperparathyroidism Screening for malignant neoplasm of colon Historical Active rickets Benign paroxysmal positional vertigo History of kidney stones Procedure/Surgical History Colonoscopy (02/08/2011), Appendectomy, Arthroplasty of right knee, section, Cystoscopy, Lithotripsy, HANANE BSO - Total abdominal hysterectomy and bilateral salpingo-oophorectomy. Medications amLODIPine 5 mg Tab, 5 mg= 1 tab(s), Oral, BID atenolol 25 mg Tab, 25 mg= 1 tab(s), Oral, Daily cranberry losartan 50 mg Tab, 50 mg= 1 tab(s), Oral, BID Ocuvite, 1 tab(s), Oral, Daily omeprazole 20 mg Cap-DR, 20 mg= 1 cap(s), Oral, Daily pravastatin 40 mg Tab, 40 mg= 1 tab(s), Oral, Daily Tylenol 8 HR Arthritis Pain 650 mg oral tablet, extended release Allergies Tape (Rash) Social History Alcohol - Denies Alcohol Use, 03/05/2019 Current, Wine, 1-2 times per year, 08/01/2022 Substance Abuse - Denies Substance Abuse, 03/05/2019 Tobacco Never (less than 100 in lifetime) Tobacco Use:. Never Smokeless Tobacco Use:., 04/30/2023 Family History Diabetes mellitus type 2: Mother. Heart disease: Father. Hypertension: Mother.Negative: Father. Immunizations Vaccine Date Status Comments influenza virus vaccin (more content not included)... [facility] Comment on above: Result Comment: Elec tronically Signed By: MAYURI SKAGGS, Diomedes Carrillo\Date and Time Signed: 04/30/23 14:29 EST 04-18-2023 Evaluation note Encounter Date Diagnosis Assessment Notes Apr, Acute cystitis without hematuria (ICD-10 - N30.00) [employer] Other 10-24-2023 Evaluation note* Encounter Date Diagnosis Assessment Notes Treatment Notes Treatment Clinical Notes Mar, Hypercholesterolemia (ICD-10 - E78.00) Instructed on diet and exercise with continued statin therapy.Discussed the beneficial effects of lowering cholesterol in reducing the risk for cerebrovascular and cardiovascular disease. Mar, Primary hypertension (ICD-10 - I10) This patient is instructed to consume a healthy, low-fat, low-salt diet. They are also encouraged to continue exercise to achieve/maintain a normal BMI. Mar, Gastroesophageal ref lux disease with esophagitis without hemorrhage (ICD-10 - K21.00) Diet instructions: Smaller portions, avoid eating and laying flat, avoid eating or drinking prior to bedtime. Weight loss. Mar, Acute cystitis witho ut hematuria (ICD-10 - N30.00) Push fluids, avoid decongestants. Fulda w/ different antibiotics (ADR Cipro) Call if symptoms persists Mar, Chronic venous insufficiency (ICD-10 - I87.2) Avoid salt and elevate lower extremities, support stockings, inspect legs and feet daily for blisters and ulcerations. Mar, Chronic actinic otit is externa of both ears (ICD-10 - H60.8X3) Keep clean and dry. Avoid use of QTips Use Cortisporin PRN Mar, Screening for colon cancer (ICD-10 - Z12.11) [facility] Other 10-11-2023 Evaluation note* Encounter Date Diagnosis Assessment Notes Treatment Notes Treatment Clinical Notes Mar, Dysuria (ICD-10 - R30.0) [facility] Other 06-30-2023 Evaluation note* Encounter Date Diagnosis Assessment Notes Treatment Notes Treatment Clinical Notes Nov, Essential (primary) hypertension (ICD-10 - I10) [employer] Other 06-28-2023 Evaluation note* Encounter Date Diagnosis Assessment Notes Treatment Notes Treatment Clinical Notes Nov, Essential (primary) hypertension (ICD-10 - I10) Nov, Gastroesophageal ref lux disease with esophagitis without hemorrhage (ICD-10 - K21.00) [employer] Other 05-26-2023 Evaluation note* Encounter Date Diagnosis Assessment Notes Treatment Notes Treatment Clinical Notes October, Wellness examination (ICD-10 - Z00.00) Healthy diet and exercise. Reviewed age-appropriate preventive testing recommended. October, Thyroid nodule (ICD- 10 - E04.1) No further scans recommended. October, Essential (primary) hypertension (ICD-10 - I10) This patient is instructed to consume a healthy, low-fat, low-salt diet. They are also encouraged to continue exercise to achieve/maintain a normal BMI. October, Chronic venous insufficiency (ICD-10 - I87.2) Avoid salt and elevate lower extremities, support stockings, inspect legs and feet daily for blisters and ulcerations. October, Gastroesophageal ref lux disease with esophagitis without hemorrhage (ICD-10 - K21.00) Diet instructions: Smaller portions, avoid eating and laying flat, avoid eating or drinking prior to bedtime. Weight loss. October, Hypercholesterolemia (ICD-10 - E78.00) Instructed on diet and exercise with continued statin therapy.Discussed the beneficial effects of lowering cholesterol in reducing the risk for cerebrovascular and cardiovascular disease. October, Screening mammogram for breast cancer (ICD-10 - Z12.31) Completed, continue yearly testing w/ monthly SBE October, Colon cancer screeni wild (ICD-10 - Z12.11) Schedule colonoscopy at end of year. She denies change in appetite, weight or bowel function She denies heartburn, dysphagia, melena or hematochezia [facility] Other 02-15-2023 Hospital Discharge instructions Patient Education 08/01/2022 10:52:06 Urinary Tract Infection, Adult Urinary Tract Infection, Adult A urinary tract infection (UTI) is an infection of any part of the urinary tract. The urinary tractincludes the kidneys, ureters, bladder, and urethra. These organs make, store, and get rid of urinein the body. Your health care provider may use other names to describe the infection. An upper UTI affects the ureters and kidneys (pyelonephritis). A lower UTI affects the bladder (cystitis) and urethra (urethritis). What are the causes? Most urinary tract infections are caused by bacteria in your genital area, around the entrance to your urinary tract (urethra). These bacteria grow and cause inflammation of your urinary tract. What increases the risk? You are more likely to develop this condition if: You have a urinary catheter that stays in place (indwelling). You are not able to control when you urinate or have a bowel movement (you have incontinence). You are female and you: ?Use a spermicide or diaphragm for control. ?Have low estrogen levels. ?Are . You have certain genes that increase your risk (genetics). You are sexually active. You take antibiotic medicines. You have a condition that causes your flow of urine to slow down, such as: ?An enlarged prostate, if you are male. ?Blockage in your urethra (stricture). ?A kidney stone. ?A nerve condition that affects your bladder control (neurogenic bladder). ?Not getting enough to drink, or not urinating often. You have certain medical conditions, such as: ?Diabetes. ?A weak disease-fighting system (immunesystem). ?Sickle cell disease. ?Gout. ?Spinal cord injury. What are the signs or symptoms? Symptoms of this condition include: Needing to urinate right away (urgently). Frequent urination or passing small amounts of urine frequently. Pain or burning with urination. Blood in the urine. Urine that smells bad or unusual. Trouble urinating. Cloudy urine. Vaginal discharge, if you are female. Pain in the abdomen or the lower back. You may also have: Vomiting or a decreased appetite. Confusion. Irritability or tiredness. A fever. Diarrhea. The first symptom in older adults may be confusion. In some cases, they may not have any symptoms until the infection has worsened. How is this diagnosed? This condition is diagnosed based on your medical history and a physical exam. You may also have other tests, including: Urine tests. Blood tests. Tests for sexually transmitted infections (STIs). If you have had more than one UTI, a cystoscopy or imaging studies may be done to determine the cause of the infections. How is this treated? Treatment for this condition includes: Antibiotic medicine. Dpbh-ewf-epuyinf medicines to treat discomfort. Drinking enough water to stay hydrated. If you have frequent infections or have other conditions such as a kidney stone, you may need to see a health care provider who specializes in the urinary tract (urologist). In rare cases, urinary tract infections can cause sepsis. Sepsis is a life- threatening condition that occurs when the body responds to an infection. Sepsis is treated in the hospital with IV antibiotics, fluids, and other medicines. Follow these instructions at home: Medicines Take rmix-klx-spqyxgf and prescription medicines only as told by your health care provider. If you were prescribed an antibiotic medicine, take it as told by your health care provider. Do notstop using the antibiotic even if you start to feel better. General instructions Make sure you: ?Empty your bladder often and completely. Do not hold urine for long periods of time. ?Empty your bladder after sex. ?Wipe from front to back after a bowel movement if you are female. Use each tissue one time when you wipe. Drink enough fluid to keep your urine pale yellow. Keep all follow-up visits as told by your health care provider. This is important. Contact a health care provider if: Your symptoms do not get better after 1 2 days. Your symptoms go away and then return. Get help right away if you have: Severe pain in your back or your lower abdomen. A fever. Nausea or vomiting. Summary A urinary tract infection (UTI) is an infection of any part of the urinary tract, which includes the kidneys, ureters, bladder, and urethra. Most urinary tract infections are caused by bacteria in your genital area, around the entrance to your urinary tract (urethra). Treatment for this condition often includes antibiotic medicines. If you were prescribed an antibiotic medicine, take it as told by your health care provider. Do notstop using the antibiotic even if you start to feel better. Keep all follow-up visits as told by your health care provider. This is important. This information is not intended to replace advice given to you by your health care provider. Make sure you discuss any questions you have with your health care provider. Document Released: 03/13/2006 Document Revised: 05/21/2019 Document Reviewed: 12/11/2018 [employer] Patient Education 2019 [employer]. Follow Up Care 07/24/2022 09:06:13 With:MANJIT LUCAS, DARRELL Quinteros, URL Address: [address] [place] [address] Business (1) When: only if needed [facility] 09-27-2022 NotePROCEDURE: XR HIP RT 2 3V W PELVIS COMPARISON: None. HISTORY: Pain in right hip joint FINDINGS: BONES:No acute fracture or dislocation. Moderate bilateral hip osteoarthropathy with joint space narrowing and marginal osteophyte formation of the acetabulum. Moderate degenerative change of the spine SOFT TISSUES:Negative. No visible soft tissue swelling. EFFUSION:None visible. OTHER: Negative. IMPRESSION: Bilateral hip osteoarthritis Electronically authenticated by: TACOS FERNANDEZ Date: 2022-03-13 18:31[facility] No data available for this section [facility] evaluation + Plan note Future Appointments Appointment Date:05/28/2023 11:20:00 AM Scheduled Provider:DARRELL SARAVIA PA-C Location:[facility] Appointment Type:URO Office Visit General Surgery [facility] Evaluation + Plan note Future Appointments Appointment Date:06/02/2024 01:00:00 PM Scheduled Provider:DARRELL SARAVIA PA-C Location:[facility] Appointment Type:URO Office Visit [facility] evaluation noteNoVeruTEK Technologies Other Evaluation noteNo InformationVeruTEK Technologies Other Evaluation note* Diagnosis Status post total right knee replacement- Primary documented in this encounter [facility] N[facility]ative - Reported* Type Description Date Medical History Osteopenia Medical History History of nephrolithiasis Medical History Essential (primary) hypertension Medical History Arthritis of left knee Medical History Chronic venous insufficiency Medical History Hip pain, right Medical History Sacroiliitis Medical History Cystitis Medical History Chest pain Medical History Menopause Medical History Strain of mid-back, initial enco unter Medical History Abdominal pain, lower Medical History Benign paroxysmal positional el tigo, bilateral Medical History Frequency of micturition Medical History Thyroid nodule Medical History Chronic vasomotor rhinitis Medical History Right carotid bruit Medical History Hyperlipidemia type II Medical History Dysuria Medical History Hypercalcemia Medical History Hyperparathyroidism, primary Medical History Gastroesophageal ref lux disease with esophagitis without hemorrhage Surgical History RIGHT TOTAL KNEE ARTHROPLASTY 2 020 Surgical History COLONOSCOPY 2010 Surgical History APPENDECTOMY Surgical History LUMINAL IRREGULARITES Hospitalization History SEE SURGICAL HX [facility] Other History general Narrative - ReportedNoVeruTEK Technologies Other History general Narrative - Reported* Type Description Date Medical History Osteopenia Medical History History of nephrolithiasis Medical History Essential (primary) hypertension Medical History Arthritis of left knee Medical History Chronic venous insufficiency Medical History Hip pain, right Medical History Sacroiliitis Medical History Cystitis Medical History Chest pain Medical History Menopause Medical History Strain of mid-back, initial enco unter Medical History Abdominal pain, lower Medical History Benign paroxysmal positional el tigo, bilateral Medical History Frequency of micturition Medical History Thyroid nodule Medical History Chronic vasomotor rhinitis Medical History Right carotid bruit Medical History Hyperlipidemia type II Medical History Dysuria Medical History Hypercalcemia Medical History Hyperparathyroidism, primary Medical History Gastroesophageal ref lux disease with esophagitis without hemorrhage Surgical History RIGHT TOTAL KNEE ARTHROPLASTY 2 020 Surgical History COLONOSCOPY 2010 Surgical History APPENDECTOMY Surgical History LUMINAL IRREGULARITES Surgical History Colonoscopy 05/2023 Hospitalization History SEE SURGICAL HX [facility] Other Hospital Discharge instructions No data available for this section General Surgery [facility] note No data available for this section [facility] reason for referral (narrative)* Reason Referral for screeni ng colonoscopy Diagnosis 1 Colon cancer screeni ng (Z12.11) Referral Organization [facility] zak Referring Provider First Name Bennett Referring Provider Last Name Solo Referring Provider Specialty Internal Ca dicine Referred Organization [facility] Referred Provider Diomedes Ybarra Referred Address [address] [place] [id number] Referred Provider Specialty Surgery Referral Priority Routine General Notes Mrs. Mckenzie is myron ng referred for screening colonoscopy. She is overdue for screening w/ her last colonoscopy being in 2010. She did have a Cologuard completed several years ago but prefers to have repeat colonoscopy. She denies change in appetite, weight or bowel habits. She denies heartburn, dysphagia, melena or hematochezia. [facility] Other Summary Purpose Family History No Family History Records Found No data available for this section No data available for this section No data available for this section No Family History Records FoundNo Family History Records Found Advance Directives No Advanced Directives Records FoundNo Advanced Directives Records FoundNo Advanced Directives Records Found Additional Source Comments Patient Care team informatio n (unrecognized section and content) Spray Gunner Relationship Specialty Start Date End Date Bennett Banda MD [address] [place] [id number] PCP - General Internal Medicine 07/24/23 INFORMATION SOURCE (unrecogn ized section and content) DATE CREATED AUTHOR 10/26/2022 [facility] DATE CREATED AUTHOR AUTHOR'S ORGANIZ ATION 06/13/2023 [facility] DATE CREATED AUTHOR AUTHOR'S ORGANIZ ATION 07/29/2023 [facility] EPIC REASON FOR VISIT (unrecogniz ed section and content) wellnessRefillRefillNo Infor mationATBUTIATB reactionCheck Upbladder spasmsNo Information FOR RECORDS PERTAINING TO PATIENTS WHO ARE OR HAVE BEEN ENROLLED IN A CHEMICAL DEPENDENCY/SUBSTANCEABUSE PROGRAM, SOME INFORMATION MAY BE OMITTED. This clinical summary was aggregated from multiple sources. Caution should be exercised in using it in the provision of clinical care. This summary normalizes information from multiple sources, and as a consequence, information in this document may materially change the coding, format and clinical context of patient data. In addition, data may be omitted in some cases. CLINICAL DECISIONS SHOULD BE BASED ON THE PRIMARY CLINICAL RECORDS. [facility] [employer] [facility]. provides no warranty or guarantee of the accuracy or completeness of information in this document.
[2023-10-24 06:48] LABS: Basophils Percent Auto 0.8 % (0.2-2.0); Eosinophils Absolute Auto 0.1 10^3/uL (0.0-0.7); Eosinophils Percent Auto 2.3 % (0.9-7.0); Hematocrit 37.1 % (36.0-48.0); Hemoglobin 12.4 g/dL (12.0-16.0); Immature Granulocytes Abs Auto 0.01 10^3/uL (0.00-0.03); Immature Granulocytes Pct Auto 0.2 % (0.0-0.5); Lymphocytes Percent Auto 19.5 % (20.5-60.0); Mean Corpuscular HGB Conc 33.4 g/dL (29.9-35.2); Mean Corpuscular Hemoglobin 29.5 pg (26.7-34.0); Mean Corpuscular Volume 88.1 fL (81.0-99.0); Mean Platelet Volume 10.8 fL (9.5-13.5); Monocytes Absolute Auto 0.6 10^3/uL (0.3-0.8); Monocytes Percent Auto 10.7 % (1.7-12.0); Neutrophils Absolute Auto 3.5 10^3/uL (1.4-6.5); Neutrophils Percent Auto 66.5 % (43.0-75.0); Platelet Count 234 10^3/uL (150-450); Red Blood Count 4.21 10^6/uL (4.20-5.40); White Blood Count 5.2 10^3/uL (4.0-11.0)
[2023-10-24 07:18] LABS: Estimated Average Glucose 105 mg/dL; Glycohemoglobin A1C 5.3 % (4.5-6.2)
[2023-10-24 07:47] LABS: Alanine Aminotransferase 21 U/L (14-59); Albumin Globulin Ratio 1.1; Albumin Level 3.7 g/dL (3.4-5.0); Alkaline Phosphatase 88 U/L (46-116); Anion Gap 12.2; Aspartate Amino Transferase 20 U/L (15-37); BUN Creatinine Ratio 23.3; Bilirubin Total 0.7 mg/dL (0.2-1.0); Calcium 10.2 mg/dL (8.5-10.1); Carbon Dioxide 27.9 mmol/L (21.0-32.0); Chloride 103 mmol/L (98-107); Chol HDL Ratio 2.8; Cholesterol 164 mg/dL (<=200); Estimated GFR (African America >60 (>=60); Estimated GFR (Non-African Ame >60 (>=60); Globulin 3.3 g/dL; Glucose 95 mg/dL (74-106); HDL Cholesterol 58 mg/dL (40-60); LDL Cholesterol Calculated 89.2 mg/dL; Potassium 4.1 mmol/L (3.5-5.1); Sodium 139 mmol/L (136-145); Thyroid Stimulating Hormone 1.534 uIU/mL (0.358-3.740); Triglycerides 84 mg/dL (<=150); VLDL CHOLESTEROL 16.8 mg/dL
== END 2023-10-24 06:34 | disposition home or self-care (01) ==
LOC: LAB 06:33
PROVIDERS: Family Provider Internal Medicine; PCP Internal Medicine; Visit Provider Internal Medicine
DX: Z00.00 Encounter for general adult medical examination without abnormal findings (principal)
CPT/HCPCS: 36415; 80053; 80061; 83036; 84443; 85025

== ENCOUNTER 2023-11-21 11:32 | Outpatient (OUT) | payer BC, SELFPAY ==
--- NOTE | 2023-11-21 11:36 | XR_ITS ---
[address] [address] Patient Name: CORA MCKENZIE MRN: [id number] date: 1945 Sex: F Assigned Patient Location: [facility] Current Patient Location: [facility] Accession/Order Number: [id number] Exam Date: 11/21/2023 11:45 Report Date: 11/21/2023 12:10 At the request of: MALLORY PRASAD Procedure: XR DEXA axial skeleton EXAMINATION: XR DEXA axial skeleton HISTORY: Osteopenia M85.80 COMPARISON: DEXA bone densitometry 11/11/2020 TECHNIQUE: Dual-energy X-ray absorptiometry (DXA) was performed. FINDINGS: SPINE ANALYSIS: Average bone mineral density is 1.315 g/cm2. T-score (standard deviation relative to young adult mean): 1.1 . -2.3% change since prior study. HIP ANALYSIS: Lowest bone mineral density is within the left femoral neck, 0.846 g/cm2. T-score (standard deviation relative to young adult mean): -1.4 . -4.3% change since prior study. XR/XR DEXA axial skeleton IMPRESSION: [employer] Classification: Osteopenia - Moderate Fracture Risk FRAX: Electronically authenticated by: EULALIA PRUETT Date: 11/21/2023 12:10
== END 2023-11-21 11:33 | disposition home or self-care (01) ==
LOC: RAD 11:33
PROVIDERS: Family Provider Internal Medicine; PCP Internal Medicine; Visit Provider Internal Medicine
DX: M85.80 Other specified disorders of bone density and structure, unspecified site (principal)
CPT/HCPCS: 77080

== ENCOUNTER 2024-06-04 07:41 | Outpatient (OUT) | payer BC, SELFPAY ==
--- OUTSIDE RECORDS SUMMARY | 2024-06-04 07:43 | XMS_ITS | CCD ---
Author Organization [facility] Care Team Providers Care Assistive Technology Specialist Name Role Phone BENNETT BANDA Primary Care Physician SOLO, DR TEJADA Admitting Unavailable BALL, DR TEJADA Primary Care Unavailable BALL, DR TEJADA Attending Unavailable BALL, DR TEJADA Admitting Unavailable BALL, DR TEJADA Attending Unavailable BALL, DR TEJADA Consulting Unavailable BALL, DR TEJADA Primary Care Unavailable WEST, DR TACOS Donaldson Consulting Unavailable BALL, DR TEJADA Admitting Unavailable BALL, DR TEJADA Attending Unavailable BALL, DR TEJADA Consulting Unavailable BALL, DR TEJADA Primary Care Unavailable BALL, DR TEJADA Primary Care Unavailable MANJIT, DARRELL Admitting Unavailable WEST, DR TACOS Donaldson Consulting Unavailable MANJIT, DARRELL Attending Unavailable MANJIT, ADRRELL Consulting Unavailable BALL, DR TEJADA Primary Care Unavailable BALL, DR TEJADA Admitting Unavailable BALL, DR TEJAAD Attending Unavailable BALL, DR TEJADA Consulting Unavailable ZieberChirag Consulting Unavailable BALL, DR TEJADA Admitting Unavailable BALL, DR TEJADA Attending Unavailable BALL, DR TEJADA Consulting Unavailable BALL, DR TEJADA Primary Care Unavailable BALL, DR TEJADA Primary Care Unavailable BALL, DR TEJADA Consulting Unavailable BALL, DR TEJADA Admitting Unavailable BALL, DR TEJADA Attending Unavailable Bennett Banda Unavailable Bennett Banda MD Primary Care Provider GERMANIA SANDOVAL Attending Unavailable GERMANIA SANDOVAL Referring Unavailable XENIA SHIELDS Attending Unavailable DARRELL SARAVIA Attending Unavailable Allergies Allergy Classification Reported Allergen(s) Allergy Type Date of Onset Reaction(s) Facility (1 source) Adhesive agent Drug allergy (disorder) [facility] (1 source) Aspirin Drug Allergy [facility] (1 source) natural latex rubber Drug allergy (disorder) [facility] (4 sources) patient allergy list reviewed by nurse or physicia Propensity to adverse reactions 3 Comment:Done [employer] Other (4 sources) Adhesive Tape; Translations: [Tape] Drug allergy Eruption of skin (disorder) [facility] (3 sources) Ciprofloxacin; Translations: [ciprofloxacin] Drug Allergy 4 Floaters in visual field (finding) [facility] (1 source) Latex Allergy to substance 3 Rash [facility] Work Phone: (1 source) Wound Dressing Adhesive Drug Allergy 3 Rash [facility] Medications Current Medications Medication Drug Class(es) Dates Sig (Normalized) Sig (Original) 8 hr acetaminophen 650 mg extended release oral tablet (4 sources) Start: 04-30-2023 Tylenol 8 HR Arthritis Pain 650 mg oral tablet, extended release Refills(s) 0 Start Date: 04/30/23 Status: Ordered acetaminophen (T ylenol) 325 MG tablet every 6 (six) hours. 0 Active amLODIPine 5 mg oral tablet (18 sources) Dihydropyridine Calcium Channel Radha Start: 09-18-2023 take 1 tablet by mouth twice daily Amlodipine Active 0 .ROUTE .COMPLEX 180 September 18, 2023 9:56am TAKE 1 TABLET BY MOUTH TWICE A DAY Start: 09-18-2023 End: 09-18-2023 take 5 mg by mouth twice daily Amlodipine Discontinued 5 MG PO Twice daily September 18, 2023 12:00am September 18, 2023 9:57am Start: 03-05-2019 take 1 tablet by мария th twice daily amLODIPine 5 mg Tab 5 mg = 1 tab(s), Oral, BID, Refills(s) 0 Start Date: 03/05/19 Status: Ordered Start: 03-05-2019 take 1 tablet by мария th once daily amLODIPine 5 mg Tab 5 mg = 1 tab(s), Oral, Daily, Refills(s) 0 Start Date: 03/05/19 Status: Ordered ascorbic acid 100 mg chewable tablet (1 source) Vitamin C ascorbic acid (Vitamin C) 100 MG chewable tablet Vitamin C 0 Active Ocuvite (3 sources) Vitamin C Start: 04-30-2023 take 1 tablet by mouth once daily Ocuvite 1 tab(s), Oral, Daily, Refill(s) 0 Start Date: 04/30/23 Status: Ordered aspirin 81 mg oral tablet (1 source) Platelet Aggregation Inhibitor, Nonsteroidal Anti-inflammatory Drug Start: 03-05-2019 take 1 mg by mouth once daily aspirin 81 mg oral tablet mg tab(s), Oral, Daily, Refills(s) 0 Start Date: 03/05/19 Status: Ordered atenolol 25 mg oral tablet (17 sources) beta-Adrenergic Radha Start: 11-08-2023 take 25 mg by mouth once daily Atenolol Active 25 MG PO Daily November 08, 2023 12:00am Start: 03-05-2019 take 1 tablet by мария th once daily atenolol 25 mg Tab 25 mg = 1 tab(s), Oral, Daily, Refills(s) 0 Start Date: 03/05/19 Status: Ordered cefuroxime 250 mg oral tablet (3 sources) Cephalosporin Antibacterial Start: 04-09-2023 take 1 tablet by mouth every twelve hours Cefuroxime Axetil 250 MG 1 tablet Orally every 12 hrs for 5 days Mar, Active Cranberry preparation (4 sources) Non-Standardized Food Allergenic Extract, Non-Standardized Plant Allergenic Extract Start: 04-30-2023 cranberry Refill(s) 0 Start Date: 04/30/23 Status: [...] day at the same time. 0 Active lisinopril 20 mg oral tablet (2 sources) Angiotensin Converting Enzyme Inhibitor Start: take 1 tablet by mouth once daily lisinopril 20 mg Tab 20 mg = 1 tab(s), Oral, Daily, Refills(s) 0 Start Date: 03/05/19 Status: Ordered lisinopril 40 MG tablet 1 (one) time each day at the same time. 0 Active losartan potassium 50 mg oral tablet (16 sources) Angiotensin 2 Receptor Radha Start: 11-08-2023 take 50 mg by mouth twice daily Losartan Active 50 MG PO Twice daily November 08, 2023 12:00am Start: 04-15-2023 losartan 50 mg Tab 50 mg = 1 tab(s), Oral, BID, Oral, 0 Refill(s), Refills(s) 0 Start Date: 04/15/23 Status: Ordered take 1 tablet by мария th every twenty-four hours Lutein (1 source) Start: 03-05-2019 lutein See [...] omeprazole 20 mg delayed release oral capsule (18 sources) Proton Pump Inhibitor Start: 11-08-2023 take 20 mg by mouth once daily Omeprazole Active 20 MG PO Daily November 08, 2023 12:00am Start: 04-15-2023 take 1 capsule by mo [facility] once daily omeprazole 20 mg Cap-DR 20 mg = 1 cap(s), Oral, Daily, Refills(s) 0 Start Date: 04/15/23 Status: Ordered Start: 03-05-2019 take 2 capsules by m [facility] once daily Prilosec 10 mg Cap-EC 20 mg = 2 cap(s), Oral, Daily, Refills(s) 0 Start Date: 03/05/19 Status: Ordered omeprazole OTC ( PriLOSEC OTC) 20 MG EC tablet 1 (one) time each day at the same time 0 Active pravastatin sodium 40 mg oral tablet (17 sources) HMG-CoA Reductase Inhibitor Start: 11-08-2023 take 40 mg by mouth once daily at bedtime Pravastatin Active 40 MG PO Daily at bedtime November 08, 2023 12:00am Start: 03-05-2019 take 1 tablet by мария th once daily pravastatin 40 mg Tab 40 [...] Active Turmeric extract (1 source) Turmeric (QC Danna caridad Complex) 500 MG capsule 1 (one) time [...] 12 hrs for 5 days Mar, Not-Taking/PRN hydrocortisone 10 mg/ml / neomycin 3.5 mg/ml / polymyxin b [id number] unt/ml otic suspension (6 sources) Aminoglycoside Antibacterial, Polymyxin-class Antibacterial, Corticosteroid Start: 09-18-2023 End: 11-08-2023 Neomycin-Polymyxin -Hc Discontinued 0 .ROUTE .COMPLEX September 18, 2023 9:57am November 08, 2023 1:56pm INSTILL 4 DROPS INTO THE AFFECTED EAR AT BEDTIME NEEDED Start: 09-18-2023 End: 09-18-2023 Qadvawsf-Ljtgdtyko-Lr Discon tinued 4 DROPS OTIC Daily at bedtime September 18, 2023 12:00am September 18, 2023 9:57am Start: 04-09-2023 neomycin-polym yxin-hydrocortisone (Cortisporin) 3.5-78536-0 otic suspension INSTILL 4 DROPS INTO THE AFFECTED EAR AT BEDTIME NEEDED 0 04/09/2023 Active Start: 04-09-2023 Neomycin-Polym yxin-HC 3.5-43662-3 4 drops into affected ear Otic q HS PRN for 30 days Mar, Active sulfamethoxazole 800 mg / trimethoprim 160 mg [...] Translations: [Endometriosis, unspecified] 03-05-2019 Chronic Esophageal disorders (20 sources) Gastroesophageal reflux disease; Translations: [Gastro-esophageal reflux [...] Episodic Other bone disease and musculoskeletal deformities (1 source) Osteopenia; Translations: [Other specified disorders of bone density and structure, unspecified site] 11-10-2023 Episodic Other bone disease and musculoskeletal deformities (1 source) Other specified disorders of bone density and structure, unspecified site; Translations: [Disorder of bone and cartilage, unspecified] 11-13-2023 Episodic Other circulatory disease (13 sources) Carotid [...] Chronic Other diseases of veins and lymphatics (19 sources) Peripheral venous insufficiency; Translations: [Venous insufficiency (chronic) (peripheral)] 04-15-2023 Episodic Other diseases of veins and lymphatics (3 sources) Venous insufficiency (chronic) (peripheral); Translations: [Venous (peripheral) insufficiency, unspecified] Episodic Other ear and sense organ disorders [...] Test Name Value Interpretation Reference Range Facility Basophils Auto (Bld) [#/Vol] on 10-24-2023 Basophils (Bld) [#/Vol] 0.0 10 3/uL 0.0-0.1 [facility] Basophils/100 WBC Auto (Bld) on 10-24-2023 Basophils/100 WBC (Bld) 0.8 % 0.2-2.0 [facility] Cholesterol in LDL Calc [Mas s/Vol]on 10-24-2023 Cholesterol in LDL [Mass/Vol] 89.2 mg/dL [facility] Comment on above: <100 mg/dl [id number] 0-129 mg/dl NEAR OR ABOVE [id number] mg/dl BORDERLINE [id number] mg/dl HIGH>190 mg/dl VERY HIGH Cholesterol in VLDL Calc [Ma ss/Vol]on 10-24-2023 Cholesterol in VLDL [Mass/Vol] 16.8 mg/dL [facility] Eosinophils/100 WBC Auto (Bl d)on 10-24-2023 Eosinophils/100 WBC (Bld) 2.3 % 0.9-7.0 [facility] Erythrocyte distribution wid th Auto (RBC) [Ratio]on 10-24-2023 Erythrocyte distribution width (RBC) [Ratio] 12.0 % 11.0-15.0 [facility] Estimated glomerular filtrat ion rate (GFR) non- Americanon 10-24-2023 GFR/1.73 sq M.predicted among non-blacks MDRD (S/P/Bld) [Vol rate/Area] mL/min/{1.73_m2} >=60 [facility] Globulin Calc (S) [Mass/Vol] on 10-24-2023 Globulin (S) [Mass/Vol] 3.3 g/dL [facility] Glucose mean value [Mass/vol ume] in Blood Estimated from glycated hemoglobinon 10-24-2023 Average glucose Estimated from glycated hemoglobin (Bld) [Mass/Vol] 105 mg/dL [facility] Hematocrit Auto (Bld) [Volum e fraction]on 10-24-2023 Hematocrit (Bld) [Volume fraction] 37.1 % 36.0-48.0 [facility] Hemoglobin [Mass/volume] in Bloodon 10-24-2023 Hemoglobin (Bld) [Mass/Vol] 12.4 g/dL 12.0-16.0 [facility] Laboratory - Chemistry and C hemistry - challengeon 10-24-2023 Albumin [Mass/Vol] 3.7 g/dL 3.4-5.0 [facility] ALP [Catalytic activity/Vol] 88 U/L 46-116 [facility] ALT [Catalytic activity/Vol] 21 U/L 14-59 [facility] AST [Catalytic activity/Vol] 20 U/L 15-37 [facility] Bilirubin [Mass/Vol] 0.7 mg/dL 0.2-1.0 [facility] Calcium [Mass/Vol] 10.2 mg/dL 8.5-10.1 [facility] Chloride [Moles/Vol] 103 mmol/L 98-107 [facility] Cholesterol [Mass/Vol] 164 mg/dL <=200 [facility] Cholesterol in HDL [Mass/Vol] 58 mg/dL 40-60 [facility] Comment on above: > or =60 mg/dl - LOW CARDIOVASCULAR RISK<40 mg/dl - HIGH CARDIOVASCULAR RISK CO2 [Moles/Vol] 27.9 mmol/L 21.0-32.0 [facility] Creatinine [Mass/Vol] 0.90 mg/dL 0.55-1.02 [facility] GFR/1.73 sq M.predicted MDRD (S/P/Bld) [Vol rate/Area] mL/min/{1.73_m2} >=60 [facility] Glucose [Mass/Vol] 95 mg/dL 74-106 [facility] Potassium [Moles/Vol] 4.1 mmol/L 3.5-5.1 [facility] Protein [Mass/Vol] 7.0 g/dL 6.4-8.2 [facility] Sodium [Moles/Vol] 139 mmol/L 136-145 [facility] Triglyceride [Mass/Vol] 84 mg/dL <=150 [facility] TSH Qn 1.534 m[IU]/L 0.358-3.740 [facility] Urea nitrogen [Mass/Vol] 21.0 mg/dL 7.0-18.0 [facility] Urea nitrogen/Creatinine [Mass ratio] 23.3 mg/mg [facility] Laboratory - Hematology and Cell countson 10-24-2023 HbA1c (Bld) [Mass fraction] 5.3 % 4.5-6.2 [facility] Comment on above: ADA RECOMMENDED LIMI T 4.0 - 6.0ADA THERAPEUTIC TARGET < 7.0ACTION SUGGESTED> 7.0 Immature granulocytes/100 WBC (Bld) 0.2 % 0.0-0.5 [facility] Leukocytes [#/volume] correc maren for nucleated erythrocytes in Blood by Automated counon 10-24-2023 WBC corrected for nucl RBC Auto (Bld) [#/Vol] 5.2 10 3/uL 4.0-11.0 [facility] Lymphocytes Auto (Bld) [#/Vo l]on 10-24-2023 Lymphocytes (Bld) [#/Vol] 1.0 10 3/uL 1.2-3.8 [facility] Lymphocytes/100 WBC Auto (Bl d)on 10-24-2023 Lymphocytes/100 WBC (Bld) 19.5 % 20.5-60.0 [facility] MCH Auto (RBC) [Entitic mass ]on 10-24-2023 MCH (RBC) [Entitic mass] 29.5 pg 26.7-34.0 [facility] MCHC Auto (RBC) [Mass/Vol]on 10-24-2023 MCHC (RBC) [Mass/Vol] 33.4 g/dL 29.9-35.2 [facility] MCV Auto (RBC) [Entitic vol] on 10-24-2023 MCV (RBC) [Entitic vol] 88.1 fL 81.0-99.0 [facility] Monocytes Auto (Bld) [#/Vol] on 10-24-2023 Monocytes (Bld) [#/Vol] 0.6 10 3/uL 0.3-0.8 [facility] Monocytes/100 WBC Auto (Bld) on 10-24-2023 Monocytes/100 WBC (Bld) 10.7 % 1.7-12.0 [facility] Neutrophils Auto (Bld) [#/Vo l]on 10-24-2023 Neutrophils (Bld) [#/Vol] 3.5 10 3/uL 1.4-6.5 [facility] Neutrophils/100 WBC Auto (Bl d)on 10-24-2023 Neutrophils/100 WBC (Bld) 66.5 % 43.0-75.0 [facility] No Panel Informationon 10-23 Eosinophils # (Auto) 0.1 10 3/uL 0.0-0.7 [facility] Immature Granulocyte # (Auto) 0.01 10 3/uL 0.00-0.03 [facility] Platelet mean volume Auto (B ld) [Entitic vol]on 10-24-2023 Platelet mean volume (Bld) [Entitic vol] 10.8 fL 9.5-13.5 [facility] Platelets Auto (Bld) [#/Vol] on 10-24-2023 Platelets (Bld) [#/Vol] 234 10 3/uL 150-450 [facility] RBC Auto (Bld) [#/Vol]on RBC (Bld) [#/Vol] 4.21 10 6/uL 4.20-5.40 [facility] Serum or plasma albumin/glob ulin mass ratioon 10-24-2023 Albumin/Globulin [Mass ratio] 1.1 {ratio} [facility] Serum or plasma anion gap de terminationon 10-24-2023 Anion gap [Moles/Vol] 12.2 mmol/L [facility] Serum or plasma total choles terol/high density lipoprotein (HDL) cholesterol mass karly 10-24-2023 Cholesterol.total/Ch olesterol in HDL [Mass ratio] 2.8 {ratio} [facility] Comment on above: 3.3 - 4.4 LOW RISK4. 4 - 7.1 AVERAGE RISK7.1 - 11.0 MODERATE RISK>11.0 HIGH RISK XR Knee - right 1 or 2 Views on 07-25-2023 Imaging Result: July 24, 2023 x-rays AP weight-bearing bilateral knees and lateral of the right knee demonstrate cemented knee replacement in good position alignment without signs of loosening fracture or failure. Impression: Stable appearance of right total knee replacement Vasu Yun D.O. [facility] [employer] XR Knee - right 1 or 2 Views Ordered By: Edilson Yun on 07-25-2023 [facility] [employer] Work Phone: XR Knee - right 1 or 2 Views on 07-24-2023 Radiology Study observation (narrative) [facility] [employer] UA RANDOM W/MICROSCOPICon Clarity (U) CLEAR CLEAR [employer] Other Color (U) YELLOW YELLOW [employer] Other Ketones Ql (U) Negative NEGATIVE mg/dL [employer] Other Leukocyte esterase Test strip Ql (U) TRACE Abnormal NEGATIVE [employer] Other pH (U) 6.0 [pH] 5.0-9.0 [employer] Other UA RANDOM W/MICROSCOPIC 2-5 #/HPF Abnormal 0-2 #/HPF [employer] Other UA RANDOM W/MICROSCOPIC see note [employer] Other UA RANDOM W/MICROSCOPIC 1.020 1.005-1.025 [employer] Other UA RANDOM W/MICROSCOPIC TRACE mg/dL NEG/TRACE mg/dL [employer] Other UA RANDOM W/MICROSCOPIC Negative NEGATIVE [employer] Other UA RANDOM W/MICROSCOPIC TRACE-I NEGATIVE [employer] Other UA RANDOM W/MICROSCOPIC 0.2 EU/dL 0.2-1.0 EU/dL [employer] Other UA RANDOM W/MICROSCOPIC TRACE #/HPF Abnormal NONE SEEN #/HPF [employer] Other UA RANDOM W/MICROSCOPIC TRACE Abnormal NONE SEEN [employer] Other UA RANDOM W/MICROSCOPIC FEW #/LPF Abnormal NONE/RARE #/LPF [employer] Other UA RANDOM W/MICROSCOPIC None Seen #/HPF None Seen #/HPF [employer] Other UA RANDOM W/MICROSCOPIC NONE SEEN #/LPF NONE SEEN #/LPF [employer] Other UA RANDOM W/MICROSCOPIC ALREADY ORDERED [employer] Other CBC AUTO DIFFon 10-19-2022 BASO # 0.0 103/ul Normal 0.0-0.1 [facility] Comment on above: Performed By: #### U RCX #### [facility] [address] [place] [address] Dr. Sheryl Zaragoza Basophils/100 WBC (Bld) 0.8 % Normal 0.2-2.0 [facility] Comment on above: Performed By: #### U RCX #### [facility] [address] [place] [address] Dr. Sheryl Zaragoza EO # 0.1 103/ul Normal 0.0-0.7 [facility] Comment on above: Performed By: #### U RCX #### [facility] [address] [place] [address] Dr. Sheryl Zaragoza Eosinophils/100 WBC (Bld) 2.5 % Normal 0.9-7.0 [facility] Comment on above: Performed By: #### U RCX #### [facility] [address] [place] [address] Dr. Sheryl Zaragoza Erythrocyte distribution width (RBC) [Ratio] 11.9 % Normal 11.0-15.0 [facility] Comment on above: Performed By: #### U RCX #### [facility] [address] [place] [address] Dr. Sheryl Zaragoza Hematocrit (Bld) [Volume fraction] 37.5 % Normal 36.0-48.0 [facility] Comment on above: Performed By: #### U RCX #### [facility] [address] [place] [address] Dr. Sheryl Zaragoza Hemoglobin (Bld) [Mass/Vol] 12.8 g/dL Normal 12.0-16.0 [facility] Comment on above: Performed By: #### U RCX #### [facility] [address] [place] [address] Dr. Sheryl Zaragoza IG # 0.01 10e3/ul Normal 0.00-0.03 [facility] Comment on above: Performed By: #### U RCX #### [facility] [address] [place] [address] Dr. Sheryl Zaragoza IG % 0.3 % Normal 0.0-0.5 [facility] Comment on above: Performed By: #### U RCX #### [facility] [address] [place] [address] Dr. Sheryl Zaragoza LYMPH # 0.8 103/ul Critically low 1.2-3.8 [facility] Comment on above: Performed By: #### U RCX #### [facility] [address] [place] [address] Dr. Sheryl Zaragoza Lymphocytes/100 WBC (Bld) 21.1 % Normal 20.5-60.0 [facility] Comment on above: Performed By: #### U RCX #### [facility] [address] [place] [address] Dr. Sheryl Zaragoza MANUAL DIFF REQ NO Normal [facility] Comment on above: Performed By: #### U RCX #### [facility] [address] [place] [address] Dr. Sheryl Zaragoza MCH (RBC) [Entitic mass] 30.1 pg Normal 26.7-34.0 [facility] Comment on above: Performed By: #### U RCX #### [facility] [address] [place] [address] Dr. Sheryl Zaragoza MCHC (RBC) [Mass/Vol] 34.1 g/dL Normal 29.9-35.2 [facility] Comment on above: Performed By: #### U RCX #### [facility] [address] [place] [address] Dr. Sheryl Zaragoza MCV (RBC) [Entitic vol] 88.2 fL Normal 81.0-99.0 [facility] Comment on above: Performed By: #### U RCX #### [facility] [address] [place] [address] Dr. Sheryl Zaragoza MONO # 0.4 103/ul Normal 0.3-0.8 [facility] Comment on above: Performed By: #### U RCX #### [facility] [address] [place] [address] Dr. Sheryl Zaragoza Monocytes/100 WBC (Bld) 10.8 % Normal 1.7-12.0 [facility] Comment on above: Performed By: #### U RCX #### [facility] [address] [place] [address] Dr. Sheryl Zaragoza NEUT # 2.6 103/ul Normal 1.4-6.5 [facility] Comment on above: Performed By: #### U RCX #### [facility] [address] [place] [address] Dr. Sheryl Zaragoza Neutrophils/100 WBC (Bld) 64.5 % Normal 43.0-75.0 [facility] Comment on above: Performed By: #### U RCX #### [facility] [address] [place] [address] Dr. Sheryl Zaragoza Platelet mean volume (Bld) [Entitic vol] 10.5 fL Normal 9.5-13.5 [facility] Comment on above: Performed By: #### U RCX #### [facility] [address] [place], [place] [id number] Dr. Sheryl Zaragoza PLT 229 103/ul Normal 150-450 [facility] Comment on above: Performed By: #### U RCX #### [facility] [address] [place] [address] Dr. Sheryl Zaragoza RBC 4.25 106/ul Normal 4.20-5.40 [facility] Comment on above: Performed By: #### U RCX #### [facility] [address] [place] [address] Dr. Sheryl Zaragoza WBC 4.0 103/ul Normal 4.0-11.0 [facility] Comment on above: Performed By: #### U RCX #### [facility] [address] [place] [address] Dr. Sheryl Zaragoza GLYCOHEMOGLOBIN A1Con 2022 ADA RECOMMENDATION SEE BELOW Normal [facility] Comment on above: Result Comment: ADA RECOMMENDED LIMIT 4.0 - 6.0 ADA THERAPEUTIC TARGET < 7.0 ACTION SUGGESTED > 7.0 Performed By: #### A 1C #### [facility] [address] [place] [address] Dr. Sheryl Zaragoza Glucose [Mass/Vol] 103 mg/dL Normal [facility] Comment on above: Performed By: #### A 1C #### [facility] [address] [place] [address] Dr. Sheryl Zaragoza HbA1c (Bld) [Mass fraction] 5.2 % Normal 4.5-6.2 [facility] Comment on above: Performed By: #### A 1C #### [facility] [address] [place] [address] Dr. Sheryl Zaragoza LIPID PROFILEon 10-19-2022 CHOL-HDL RATIO NORM SEE BELOW Normal [facility] Comment on above: Result Comment: 3.3 - 4.4 LOW RISK 4.4 - 7.1 AVERAGE RISK 7.1 - 11.0 MODERATE RISK >11.0 HIGH RISK Performed By: #### C MP, LIPID, TSH #### [facility] [address] [place] [address] Dr. Sheryl Zaragoza Cholesterol [Mass/Vol] 185 mg/dL Normal <=200 [facility] Comment on above: Performed By: #### C MP, LIPID, TSH #### [facility] [address] [address] [address] Sheryl Zaragoza Cholesterol in HDL [Mass/Vol] 63 mg/dL Critically high 40-60 [facility] Comment on above: Performed By: #### C MP, LIPID, TSH #### [facility] [address] [address] [address] Sheryl Zaragoza Cholesterol in LDL [Mass/Vol] 103.8 mg/dL Normal [facility] Comment on above: Performed By: #### C MP, LIPID, TSH #### [facility] [address] [address] [address] Sheryl Zaragoza Cholesterol.total/Ch olesterol in HDL [Mass ratio] 2.9 {ratio} Normal [facility] Comment on above: Performed By: #### C MP, LIPID, TSH #### [facility] [address] [address] [address] Sheryl Zaragoza HDL NORMAL > or = 60 mg/dl - LOW CARDIOVASCULAR RISK <40 mg/dl - HIGH CARDIOVASCULAR RISK Normal [facility] Comment on above: Performed By: #### C MP, LIPID, TSH #### [facility] [address] [address] [address] Sheryl Zaragoza LDL CALC NORMAL SEE BELOW Normal [facility] Comment on above: Result Comment: <100 mg/dl OPTIMAL 100 - 129 mg/dl NEAR OR ABOVE OPTIMAL 130 - 159 mg/dl BORDERLINE HIGH 160 - 189 mg/dl HIGH >190 mg/dl VERY HIGH Performed By: #### C MP, LIPID, TSH #### [facility] [address] [address] [address] Sheryl Zaragoza Triglyceride [Mass/Vol] 91 mg/dL Normal <=150 [facility] Comment on above: Performed By: #### C MP, LIPID, TSH #### [facility] [address] [address] [address] Sheryl Zaragoza VLDL CALC 18.2 mg/dL Normal [facility] Comment on above: Performed By: #### C MP, LIPID, TSH #### [facility] [address] [address] [address] Sheryl Zaragoza PROF 14(COMP METB)on 023 Albumin [Mass/Vol] 3.7 g/dL Normal 3.4-5.0 [facility] Comment on above: Performed By: #### C MP, LIPID, TSH #### [facility] [address] [address] [address] Sheryl Zaragoza Albumin/Globulin [Mass ratio] 1.1 {ratio} Normal [facility] Comment on above: Performed By: #### C MP, LIPID, TSH #### [facility] [address] [address] [address] Sheryl Zaragoza ALP [Catalytic activity/Vol] 81 U/L Normal 46-116 [facility] Comment on above: Performed By: #### C MP, LIPID, TSH #### [facility] [address] [address] [address] Sheryl Zaragoza ALT [Catalytic activity/Vol] 24 U/L Normal 14-59 [facility] Comment on above: Performed By: #### C MP, LIPID, TSH #### [facility] [address] [address] [address] Sheryl Zaragoza Anion gap [Moles/Vol] 8.2 mmol/L Normal [facility] Comment on above: Performed By: #### C MP, LIPID, TSH #### [facility] [address] [address] [address] Sheryl Zaragoza AST [Catalytic activity/Vol] 17 U/L Normal 15-37 [facility] Comment on above: Performed By: #### C MP, LIPID, TSH #### [facility] [address] [address] [address] Sheryl Zaragoza Bilirubin [Mass/Vol] 0.5 mg/dL Normal 0.2-1.0 [facility] Comment on above: Performed By: #### C MP, LIPID, TSH #### [facility] [address] [address] [address] Sheryl Zaragoza Calcium [Mass/Vol] 9.9 mg/dL Normal 8.5-10.1 [facility] Comment on above: Performed By: #### C MP, LIPID, TSH #### [facility] [address] [place] [address] Dr. Sheryl Zaragoza Chloride [Moles/Vol] 102 mmol/L Normal 98-107 [facility] Comment on above: Performed By: #### C MP, LIPID, TSH #### [facility] [address] [place] [address] Dr. Sheryl Zaragoza CO2 [Moles/Vol] 30.2 mmol/L Normal 21.0-32.0 [facility] Comment on above: Performed By: #### C MP, LIPID, TSH #### [facility] [address] [place] [address] Dr. Sheryl Zaragoza Creatinine [Mass/Vol] 0.88 mg/dL Normal 0.55-1.02 [facility] Comment on above: Performed By: #### C MP, LIPID, TSH #### [facility] [address] [place] [address] Dr. Sheryl Zaragoza EGFR-AF KYRGYZ >60 Normal >=60 [facility] Comment on above: Performed By: #### C MP, LIPID, TSH #### [facility] [address] [place] [address] Dr. Sheryl Zaragoza EGFR-NON AF KYRGYZ >60 Normal >=60 [facility] Comment on above: Performed By: #### C MP, LIPID, TSH #### [facility] [address] [place] [address] Dr. Sheryl Zaragoza Globulin (S) [Mass/Vol] 3.4 g/dL Normal [facility] Comment on above: Performed By: #### C MP, LIPID, TSH #### [facility] [address] [place] [address] Dr. Sheryl Zaragoza Glucose [Mass/Vol] 97 mg/dL Normal 74-106 [facility] Comment on above: Performed By: #### C MP, LIPID, TSH #### [facility] [address] [place] [address] Dr. Sheryl Zaragoza Potassium [Moles/Vol] 4.4 mmol/L Normal 3.5-5.1 [facility] Comment on above: Performed By: #### C MP, LIPID, TSH #### [facility] [address] [place] [address] Dr. Sheryl Zaragoza Protein [Mass/Vol] 7.1 g/dL Normal 6.4-8.2 [facility] Comment on above: Performed By: #### C MP, LIPID, TSH #### [facility] [address] [place] [address] Dr. Sheryl Zaragoza Sodium [Moles/Vol] 136 mmol/L Normal 136-145 [facility] Comment on above: Performed By: #### C MP, LIPID, TSH #### [facility] [address] [place] [address] Dr. Sheryl Zaragoza Urea nitrogen [Mass/Vol] 14.0 mg/dL Normal 7.0-18.0 [facility] Comment on above: Performed By: #### C MP, LIPID, TSH #### [facility] [address] [place] [address] Dr. Sheryl Zaragoza Urea nitrogen/Creatinine [Mass ratio] 15.9 mg/mg Normal [facility] Comment on above: Performed By: #### C MP, LIPID, TSH #### [facility] [address] [place] [address] Dr. Sheryl Zaragoza TSHon 10-19-2022 TSH 1.288 uIU/mL Normal 0.358-3.740 [facility] Comment on above: Performed By: #### C MP, LIPID, TSH #### [facility] [address] [place] [address] Dr. Sheryl Zaragoza MG MAMM SCREEN 3D JOSE CADon 08-22-2022 MG MAMM SCREEN 3D JOSE CAD Patient: ZAKIYA MCKENZIE Exam Date: 08/22/2022 : 1945 Gender:F Ordering : DR BENNETT BANDA D.O. Admission #: [id number] Family : Order #: [id number] CLICK HERE TO VIEW EXAM RADIOLOGY REPORT [...] No Treatments None Family Cancers None LOCATION: [facility] BREAST COMPOSITION: Scattered areas fibroglandular density. FINDINGS: [...] Russell M.D. on 08/22/2022 at 17:08 Normal [facility] US KIDNEYSon 08-15-2022 US KIDNEYS EXAMINATION: US [...] by: TACOS FERNANDEZ Date: 2022-08-15 08:35 Normal [facility] XR KUB 1 VIEWon 08-15-2022 XR KUB [...] by: TACOS FERNANDEZ Date: 2022-08-15 09:25 Normal [facility] CULTURE URINEon 06-27-2022 CULTURE URINE Culture Observations: NO GROWTH. Normal [facility] Comment on above: Performed By: #### U RCX #### [facility] [address] [place] [address] Dr. Sheryl Zaragoza UA RANDOM W/MICROSCOPICon BACTERIA NONE SEEN Normal NONE SEEN [facility] Comment on above: Performed By: #### U RCX #### [facility] [address] [place] [address] Dr. Sheryl Zaragoza Bilirubin Ql (U) Negative Normal NEGATIVE [facility] Comment on above: Performed By: #### U RCX #### [facility] [address] [place] [address] Dr. Sheryl Zaragoza CAST SEEN Abnormal NONE SEEN [facility] Comment on above: Performed By: #### U RCX #### [facility] [address] [place] [address] Dr. Sheryl Zaragoza Clarity (U) CLEAR Normal CLEAR [facility] Comment on above: Performed By: #### U RCX #### [facility] [address] [place] [address] Dr. Sheryl Zaragoza Color (U) YELLOW Normal YELLOW [facility] Comment on above: Performed By: #### U RCX #### [facility] [address] [place] [address] Dr. Sheryl Zaragoza Crystals LM Nom (Urine sed) NONE SEEN Normal NONE SEEN [facility] Comment on above: Performed By: #### U RCX #### [facility] [address] [place] [address] Dr. Sheryl Zaragoza Epithelial cells LM Ql (Urine sed) RARE Normal NONE SEEN /RARE [facility] Comment on above: Performed By: #### U RCX #### [facility] [address] [address] [address] Sheryl Zaragoza Glucose Ql (U) Negative Normal NEGATIVE [facility] Comment on above: Performed By: #### U RCX #### [facility] [address] [address] [address] Sheryl Zaragoza Hemoglobin Ql (U) Negative Normal NEGATIVE [facility] Comment on above: Performed By: #### U RCX #### [facility] [address] [address] [address] Sheryl Zaragoza Ketones Ql (U) TRACE Abnormal NEGATIVE [facility] Comment on above: Performed By: #### U RCX #### [facility] [address] [address] [address] Sheryl Zaragoza LEUKOCYTES Negative Normal NEGATIVE [facility] Comment on above: Performed By: #### U RCX #### [facility] [address] [address] [address] Sheryl Zaragoza MUCOUS NONE SEEN Normal NONE SEEN [facility] Comment on above: Performed By: #### U RCX #### [facility] [address] [address] [address] Sheryl Zaragoza Nitrite Ql (U) Negative Normal NEGATIVE [facility] Comment on above: Performed By: #### U RCX #### [facility] [address] [address] [address] Sheryl Zaragoza pH (U) 6.5 [pH] Normal 5-9 [facility] Comment on above: Performed By: #### U RCX #### [facility] [address] [place] [address] Dr. Sheryl Zaragoza RBC 0-2 Normal 0-2 [facility] Comment on above: Performed By: #### U RCX #### [facility] [address] [address] [address] Sheryl Zaragoza SPEC GRAVITY 1.010 Normal 1.005-<=1.025 [facility] Comment on above: Performed By: #### U RCX #### [facility] [address] [address] [address] Sheryl Zaragoza UA PROTEIN Negative Normal NEGATIVE/ TRACE [facility] Comment on above: Performed By: #### U RCX #### [facility] [address] [place] [address] Dr. Sheryl Zaragoza Urobilinogen Qn (U) 0.2 {Sena'U}/dL Normal 0.2 - 1. 0 [facility] Comment on above: Performed By: #### U RCX #### [facility] [address] [place] [address] Dr. Sheryl Zaragoza WBC 0-2 Abnormal NONE SEEN [facility] Comment on above: Performed By: #### U RCX #### [facility] [address] [place] [address] Dr. Sheryl Zaragoza CULTURE URINEon 04-04-2022 CULTURE URINE Culture Observations: LIGHT GROWTH OF MIXED GENITAL JUDY. NO POTENTIAL PATHOGENS SEEN. Normal [facility] Comment on above: Performed By: #### U RCX #### [facility] [address] [place] [address] Dr. Sheryl Zaragoza UA RANDOM W/MICROSCOPICon BACTERIA NONE SEEN Normal NONE SEEN [facility] Comment on above: Performed By: #### U AMIC #### [facility] [address] [place] [address] Dr. Sheryl Zaragoza Bilirubin Ql (U) Negative Normal NEGATIVE [facility] Comment on above: Performed By: #### U AMIC #### [facility] [address] [place] [address] Dr. Sheryl Zaragoza CAST NONE SEEN Normal NONE SEEN [facility] Comment on above: Performed By: #### U AMIC #### [facility] [address] [place] [address] Dr. Sheryl Zaragoza Clarity (U) CLEAR Normal CLEAR [facility] Comment on above: Performed By: #### U AMIC #### [facility] [address] [place] [address] Dr. Sheryl Zaragoza Color (U) LT. YELLOW Normal YELLOW [facility] Comment on above: Performed By: #### U AMIC #### [facility] [address] [address] [address] Sheryl Zaragoza Crystals LM Nom (Urine sed) NONE SEEN Normal NONE SEEN [facility] Comment on above: Performed By: #### U AMIC #### [facility] [address] [place] [address] Dr. Sheryl Zaragoza Epithelial cells LM Ql (Urine sed) FEW Abnormal NONE SEEN /RARE [facility] Comment on above: Performed By: #### U AMIC #### [facility] [address] [address] [address] Sheryl Zaragoza Glucose Ql (U) Negative Normal NEGATIVE [facility] Comment on above: Performed By: #### U AMIC #### [facility] [address] [place] [address] Dr. Sheryl Zaragoza Hemoglobin Ql (U) Negative Normal NEGATIVE [facility] Comment on above: Performed By: #### U AMIC #### [facility] [address] [place] [address] Dr. Sheryl Zaragoza Ketones Ql (U) Negative Normal NEGATIVE [facility] Comment on above: Performed By: #### U AMIC #### [facility] [address] [address] [address] Sheryl Zaragoza LEUKOCYTES Negative Normal NEGATIVE [facility] Comment on above: Performed By: #### U AMIC #### [facility] [address] [place] [address] Dr. Sheryl Zaragoza MUCOUS NONE SEEN Normal NONE SEEN [facility] Comment on above: Performed By: #### U AMIC #### [facility] [address] [place] [address] Dr. Sheryl Zaragoza Nitrite Ql (U) Negative Normal NEGATIVE [facility] Comment on above: Performed By: #### U AMIC #### [facility] [address] [place] [address] Dr. Sheryl Zaragoza pH (U) 6.0 [pH] Normal 5-9 [facility] Comment on above: Performed By: #### U AMIC #### [facility] [address] [place] [address] Dr. Sheryl Zaragoza RBC NONE SEEN Abnormal 0-2 [facility] Comment on above: Performed By: #### U AMIC #### [facility] [address] [place] [address] Dr. Sheryl Zaragoza SPEC GRAVITY 1.010 Normal 1.005-<=1.025 [facility] Comment on above: Performed By: #### U AMIC #### [facility] [address] [address] [address] Sheryl Zaragoza UA PROTEIN Negative Normal NEGATIVE/ TRACE [facility] Comment on above: Performed By: #### U AMIC #### [facility] [address] [place] [address] Dr. Sheryl Zaragoza Urobilinogen Qn (U) 0.2 {Sena'U}/dL Normal 0.2 - 1. 0 [facility] Comment on above: Performed By: #### U AMIC #### [facility] [address] [place] [address] Dr. Sheryl Zaragoza WBC 0-2 Abnormal NONE SEEN [facility] Comment on above: Performed By: #### U AMIC #### [facility] [address] [place] [address] Dr. Sheryl Zaragoza XR LSPINE 2_3 VIEWSon 2021 XR LSPINE 2_3 VIEWS EXAMINATION: XR LSPINE 2_3 VIEWS HISTORY: Low back pain COMPARISON: [...] by: TACOS FERNANDEZ Date: 2022-03-13 18:30 Normal [facility] Vital Signs Date Time Vital Sign Value Performing Clinician Facility 11-13-2023 11:37-0400 Body height 160.02 cm [facility] 11-13-2023 11:37-0400 Body mass index (BMI) [Ratio] 29.2 kg/m2 [facility] 11-13-2023 11:37-0400 Body weight 75.06 kg [facility] 11-13-2023 11:37-0400 Diastolic blood pressure 67 mm[Hg] [facility] 11-13-2023 11:37-0400 Heart rate 53 /min [facility] 11-13-2023 11:37-0400 Respiratory rate 12 /min [facility] 11-13-2023 11:37-0400 Systolic blood pressure 130 mm[Hg] [facility] 05-28-2023 11:21-0500 Blood Pressure Location DARRELL MANJIT [facility] 05-28-2023 11:21-0500 Diastolic blood pressure 79 mm[Hg] DARRELL MANJIT [facility] 05-28-2023 11:21-0500 Heart rate 80 /min DARRELL MANJIT [facility] 05-28-2023 11:21-0500 Respiratory rate 16 /min DARRELL MANJIT [facility] 05-28-2023 11:21-0500 Systolic blood pressure 128 mm[Hg] DARRELL MANJIT [facility] 04-30-2023 13:48-0500 Blood Pressure Location Diomedes MONTESL [facility] 04-30-2023 13:48-0500 Diastolic blood pressure 72 mm[Hg] Diomedes MONTESL [facility] 04-30-2023 13:48-0500 Heart rate 72 /min Diomedes MONTESL [facility] 04-30-2023 13:48-0500 Respiratory rate 16 /min Diomedes NILL [facility] 04-30-2023 13:48-0500 Systolic blood pressure 138 mm[Hg] Diomedes YBARRA [facility] 04-09-2023 11:30-0400 Body height 160.02 cm Bennett Ball Other [employer] Other 04-09-2023 11:30-0400 Body mass index (BMI) [Ratio] 30.18 kg/m2 Bennett Ball Other [employer] Other 04-09-2023 11:30-0400 Body weight 77.29 kg Bennett Ball Other [employer] Other 04-09-2023 11:30-0400 Diastolic blood pressure 60 mm[Hg] Bennett Ball Other [employer] Other 04-09-2023 11:30-0400 Respiratory rate 12 /min Bennett Ball Other [employer] Other 04-09-2023 11:30-0400 Systolic blood pressure 120 mm[Hg] Bennett Ball Other [employer] Other 11-09-2022 10:30-0400 Body height 160.02 cm Bennett Ball Other [employer] Other 11-09-2022 10:30-0400 Body mass index (BMI) [Ratio] 29.51 kg/m2 Bennett Ball Other [employer] Other 11-09-2022 10:30-0400 Body weight 75.57 kg Bennett Ball Other [employer] Other 11-09-2022 10:30-0400 Diastolic blood pressure 73 mm[Hg] Bennett Ball Other [facility] [employer] Other 11-09-2022 10:30-0400 Respiratory rate 16 /min Bennett Banda Other [employer] Other 11-09-2022 10:30-0400 Systolic blood pressure 147 mm[Hg] Bennett Banda Other [employer] Other 08-01-2022 09:49-0500 Blood Pressure Location DARRELL SARAVIA [facility] 08-01-2022 09:49-0500 Diastolic blood pressure 62 mm[Hg] DARRELL SARAVIA [facility] 08-01-2022 09:49-0500 Heart rate 52 /min DARRELL SARAVIA [facility] 08-01-2022 09:49-0500 Systolic blood pressure 133 mm[Hg] DARRELL ASRAVIA [facility] Encounters Encounter Date Encounter Type Care Provider Facility Start: 06-02-2024 ambulatory DARRELL Quinteros MANJIT Adonay ty:SANTY Luciano Start: 01-16-2024 End: 01-16-2024 ambulatory XENIA SHIELDS Not Available Start: 11-13-2023 End: 11-13-2023 ambulatory [facility] Work Phone: Start: 11-13-2023 End: 11-13-2023 Encounter for general adult medical examination without abnormal findings [facility] Start: 11-13-2023 End: 11-13-2023 Patient encounter procedure [facility] Work Phone: Start: 10-24-2023 Non-patient / Non-visit [facility] [facility] Work Phone: Start: 09-18-2023 Non-patient / Non-visit [facility] [employer] Work Phone: Start: 07-24-2023 End: 07-24-2023 Office outpatient visit 10 minutes Germania Sandoval [employer] Work Phone: [facility] Comment on above: Status post total ri ght knee replacement (Primary Dx) Start: 07-24-2023 End: 07-24-2023 ambulatory GERMANIA SANDOVAL Not Available Start: 05-30-2023 End: 05-30-2023 ambulatory Bennett Banda Other [employer] Other Start: 05-30-2023 Telephone encounter Bennett MCFARLANE [facility] Start: 05-28-2023 End: 05-28-2023 Patient encounter procedure DARRELL SARAVIA [facility] [employer] Start: 05-06-2023 End: 05-06-2023 Patient encounter procedure DARRELL SARAVIA [facility] [employer] Start: 04-30-2023 End: 04-30-2023 Patient encounter procedure Diomedes YBARRA [facility] Start: 04-18-2023 End: 04-18-2023 ambulatory Bennett Banda Other [employer] Other Start: 04-18-2023 Telephone encounter Bennett Banda [facility] Start: 04-09-2023 End: 04-09-2023 ambulatory Bennett Banda Other [employer] Other Start: 04-09-2023 Office outpatient vi sit 25 minutes Bennett Banda [facility] Start: 04-01-2023 End: 04-01-2023 ambulatory Bennett Banda Other [employer] Other Start: 04-01-2023 Telephone encounter Bennett Banda [facility] Start: 03-27-2023 End: 03-27-2023 ambulatory Bennett Solo Other [employer] Other Start: 03-27-2023 Telephone encounter Bennett Solo [facility] Start: 12-14-2022 End: 12-14-2022 ambulatory Bennett Solo Other [employer] Other Start: 12-14-2022 Telephone encounter Bennett Banda [facility] Start: 12-13-2022 End: 12-13-2022 ambulatory Bennett Solo Other [employer] Other Start: 12-13-2022 Telephone encounter Bennett Banda [facility] Start: 12-12-2022 End: 12-12-2022 ambulatory Bennett Banda Other [employer] Other Start: 12-12-2022 Telephone encounter Bennett Solo [facility] Start: 11-09-2022 End: 11-09-2022 ambulatory Bennett Banda Other [employer] Other Start: 11-09-2022 Encounter for genera l adult medical examination without abnormal findings Bennett Banda [facility] Start: 11-09-2022 Periodic preventive med est patient 65yrs& older Bennett Banda [facility] Start: 10-25-2022 Encounter for genera l adult medical examination without abnormal findings DR BENNETT BANDA [facility] Start: 10-19-2022 End: 10-20-[address] BENNETT BANDA Facility:[facility] Start: 10-19-2022 End: 10-20-2022 Encounter for general adult medical examination without abnormal findings DR BENNETT BANDA Facility:[facility] Start: 08-22-2022 End: 08-23-[address] BENNETT BANDA Facility:[facility] Start: 08-15-2022 End: 08-16-[address] BENNETT BANDA Facility:[facility] Start: 08-01-2022 End: 08-01-2022 Patient encounter procedure DARRELL Tavarez [facility] Start: 06-27-2022 End: 06-28-[address] BENNETT BANDA Facility:[facility] Start: 04-04-2022 End: 04-04-[address] BENNETT BANDA Facility:[facility] Start: 03-13-2022 End: 03-14-[address] BENNETT BANDA Facility:[facility] Start: 02-14-2022 End: 03-01-[address] BENNETT BANDA Facility:[facility] Start: 10-19-2021 Adult health examination Yuriy Banda Other [employer] Other Start: 09-02-2019 Preoperative cardiovascular examination Bennett Solo Other [employer] Other Procedures Date Procedure Procedure Detail Performing Clinician Start: 07-24-2023 Radiologic examinati on knee 1/2 views Germania Sandoval NP Work Phone: Start: 03-31-2015 General examination of patient Bennett Banda Other Start: 02-08-2011 Colonoscopy DARRELL YARBROUGH Appendectomy DARRELL SARAVIA section Diomedes MONTES L Cystoscopy DARRELL SARAVIA Hysterectomy DARRELL PORTILLORY Knee region structur e (body structure) DARRELL PORTILLORY Lithotripsy Diomedes MONTESL Repair of joint of r ight knee Diomedes MONTESL Screening for malign ant neoplasm of breast Bennett Banda Other Screening mammography Letty Banda Other Total abdominal hysterectomy with bilateral salpingo-oophorectomy Diomedes MONTESL Plan of Treatment Date Care Activity Detail Author Start: 01-16-2024 End: 01-16-2024 Patient encounter procedure 01/16/2024 1:15 PM EDT Office Visit [facility] [address] [place] [address] Xenia Shields MD [address] [place] [address] [facility] Start: 02-15-2023 Influenza vaccination Influenza Vacc ine (#1) [facility] Immunizations Immunization Date Immunization Notes Care Provider Fa cili 03-17-2023 influenza virus vaccine, unspecified formulation Diomedes YBARRA [facility] 04-17-2022 influenza virus vaccine, unspecified formulation Germania Sandoval NP Work Phone: [facility] 03-28-2022 SARS-CoV-2 (COVID-19 ) [id number] DARRELL SARAVIA [facility] Comment on above: Result Comment: 2022: [id number] 08-18-2021 tetanus and diphther ia toxoids, adsorbed, preservative free, for adult use (5 Lf of tetanus toxoid and 2 Lf of diphtheria toxoid) Bennett Banda Other [facility] 04-07-2021 SARS-CoV-2 (COVID-19 ) mRNA-1273 vaccine DARRELL SARAVIA [facility] 07-13-2020 SARS-CoV-2 (COVID-19 ) mRNA-1273 vaccine DARRELL SARAVIA [facility] 06-15-2020 SARS-CoV-2 (COVID-19 ) mRNA-1273 vaccine DARRELL SARAVIA [facility] 03-17-2019 influenza virus vaccine, unspecified formulation DARRELL SARAVIA [facility] 03-29-2018 influenza virus vaccine, unspecified formulation DARRELL SARAVIA [facility] 07-01-2017 influenza virus vaccine, unspecified formulation DARRELL SARAVIA [facility] 05-17-2016 influenza virus vaccine, unspecified formulation DARRELL SARAVIA [facility] 04-07-2015 pneumococcal conjuga te vaccine, 13 valent DARRELL SARAVIA [facility] 03-22-2015 influenza virus vaccine, split virus (incl. purified surface antigen) Bennett Banda Other [employer] Other 03-22-2015 influenza virus vaccine, unspecified formulation [facility] 03-21-2015 pneumococcal polysaccharide vaccine, 23 valent DARRELL SARAVIA [facility] 04-22-2013 tetanus and diphther ia toxoids, adsorbed, preservative free, for adult use (5 Lf of tetanus toxoid and 2 Lf of diphtheria toxoid) Bennett Banda Other [facility] NEGATED: Highlighted row has not occurred!03-05-2019 influenza virus vaccine, unspecified formulation DARRELL SARAVIA [facility] Comment on above: Result Comment: Flu vaccine not offered at Endocrinology. Will receive through employer in March Payers Date Payer Category Payer Unknown BCBS BCBS [id number] 2022-Present [phone] [address] [place] [address] [id number] 2019 Unknown [id number] 1959 Unknown [id number] 1945 Unknown [id number] [id number] 1947 Unknown [id number] 2.16.840.1.429390.3.579.2.593 1947 Unknown [id number] 2.16.840.1.551041.3.579.2.593 1947 Unknown [id number] 2.16.840.1.914444.3.579.2.593 1947 Unknown [id number] 2.16.840.1.873398.3.579.2.593 1947 Unknown [id number] 2.16.840.1.525650.3.579.2.593 1947 Unknown [id number] 2.16.840.1.136438.3.579.2.593 1947 Unknown [id number] 2.16.840.1.314717.3.579.2.1259 1947 Unknown [id number] 2.16.840.1.865044.3.579.2.1259 1947 Unknown [id number] 2.16.840.1.750939.3.579.2.1259 1947 Unknown [id number] [id number] Social History Date Type Detail Facility Start: 03-05-2019 End: 01-14-2023 Tobacco smoking status Never smoked tobacco (finding) [facility] Tobacco smoking status Never [facility] Start: 07-24-2023 Sex Assigned At Female F [facility] Start: 01-14-2023 Tobacco use and exposure Smokeless tobacco non-user [facility] Start: 07-24-2023 Alcohol intake Ex-drinker (finding) [facility] Start: 07-24-2023 History of Social function [facility] Start: 1945 Sex Assigned At Not on file [facility] Start: 1945 Sex Assigned At Female F [facility] Functional Status Date Assessment Result Facility 05-28-2023 Functional Status N/A [facility] 04-30-2023 Functional Status N/A [facility] 08-01-2022 Functional Status N/A [facility] Clinical Notes 03-13-2022 to 07-24-2023 Germania Sandoval [...] tolerated, f/U prn documented in this encounter [facility] 05-28-2023 Hospital Discharge instructions Patient Education 05/28/2023 [...] Treatment for this condition includes: Antibiotic medicine. Iurq-cdu-ndqzvdw medicines to treat discomfort. Drinking enough water [...] Follow these instructions at home: Medicines Take yyic-etl-knmdlze and prescription medicines only as told by [...] provider. Document Revised: 01/13/2021 Document Reviewed: 01/13/2021 Stockpile Patient Education 2022 [employer]. Follow Up Care 04/29/2023 08:25:06 With:MANJIT LUCAS, DARRELL Quinteros, URL Address: When:1 year [facility] 04-18-2023 Evaluation note Encounter Date Diagnosis Assessment Notes Apr, Acute cystitis without hematuria (ICD-10 - N30.00) [facility] Other 10-24-2023 Evaluation note* Encounter Date Diagnosis [...] (ICD-10 - N30.00) Push fluids, avoid decongestants. [place] w/ different antibiotics (ADR Cipro) Call if [...] Screening for colon cancer (ICD-10 - Z12.11) [facility] Other 10-11-2023 Evaluation note* Encounter Date Diagnosis Assessment Notes Treatment Notes Treatment Clinical Notes Mar, Dysuria (ICD-10 - R30.0) [facility] Other 06-30-2023 Evaluation note* Encounter Date Diagnosis Assessment Notes Treatment Notes Treatment Clinical Notes Nov, Essential (primary) hypertension (ICD-10 - I10) [facility] Other 06-28-2023 Evaluation note* Encounter Date Diagnosis Assessment Notes Treatment Notes Treatment Clinical Notes Nov, Essential (primary) hypertension (ICD-10 - I10) Nov, Gastroesophageal ref lux disease with esophagitis without hemorrhage (ICD-10 - K21.00) [facility] Other 05-26-2023 Evaluation note* Encounter Date Diagnosis [...] She denies heartburn, dysphagia, melena or hematochezia [facility] Other 02-15-2023 Hospital Discharge instructions Patient Education [...] Treatment for this condition includes: Antibiotic medicine. Zmim-usg-qzrbfsq medicines to treat discomfort. Drinking enough water [...] Follow these instructions at home: Medicines Take yand-iwe-xyltjbq and prescription medicines only as told by [...] 03/13/2006 Document Revised: 05/21/2019 Document Reviewed: 12/11/2018 Stockpile Patient Education 2020 [employer]. Follow Up Care 07/24/2022 09:06:13 With:MANJIT LUCAS, DARRELL Quinteros, URL Address: [address] [place] [address] Business (1) When: only if needed [facility] 09-27-2022 NotePROCEDURE: XR HIP RT 2 3V [...] authenticated by: TACOS FERNANDEZ Date: 2022-03-13 18:31[facility] No data available for this section [facility] evaluation + Plan note Future Appointments Appointment Date:05/28/2023 11:20:00 AM Scheduled Provider:DARRELL SARAVIA PA-C Location:[facility] Appointment Type:URO Office Visit General Surgery [facility] Evaluation + Plan note Future Appointments Appointment Date:06/02/2024 01:00:00 PM Scheduled Provider:DARRELL SARAVIA PA-C Location:[facility] Appointment Type:URO Office Visit [facility] [place] YouTube Other Evaluation noteNo InformationNohermann area [facility] YouTube Other Evaluation note* Diagnosis Status post total right knee replacement- [facility] Diagnosis Onset Date Resolution Status Chronic venous insufficiency acute Essential (primary) hypertension acute GERD (gastroesophageal reflux disease) acute Hypercholesterolemia acute Osteopenia acute Wellness examination noneact [facility] Work Phone: Hiswdyn general Narrative - Reported* Type Description Date [...] LUMINAL IRREGULARITES Hospitalization History SEE SURGICAL HX [facility] Other History general Narrative - ReportedNohermann area district hospital YouTube Other History general Narrative - Reported* Type [...] Colonoscopy 05/2023 Hospitalization History SEE SURGICAL HX [facility] Other Hospital Discharge instructions No data available for this section General Surgery [facility] Progress note No data available for this section [facility] reason for referral (narrative)* Reason Referral for screeni ng colonoscopy Diagnosis 1 Colon cancer screeni ng (Z12.11) Referral Organization [facility] Bao crespo Referring Provider First Name Bennett Referring Provider Last Name Solo Referring Provider Specialty Internal Me dicine Referred Organization [facility] Referred Provider Diomedes Ybarra Referred Address [address] [place], [place],[address] Referred Provider Specialty Surgery Referral Priority Routine General Notes Mrs. Mckenzie is myron ng referred for screening colonoscopy. She is overdue for screening w/ her last colonoscopy being in 2010. She did have a Cologuard completed several years ago but prefers to have repeat colonoscopy. She denies change in appetite, weight or bowel habits. She denies heartburn, dysphagia, melena or hematochezia. [facility] Other Summary Purpose Family History No Family History Records Found Relationship Condition Age at Onset Recorded Date/T brenda father Heart disease Unknown Unknown Not Specified Diabetes mellitus Unknown Advance Directives No Advanced Directives Records Found Advance Directive Response Recorded Date/ Time Advance Directives No July 10, 2023 1:50pm Chief Complaint and Reason for Visit Chief Complaint Amb Documentation Wellness Reason for Visit Chronic venous insuf ficiency Essential (primary) hypertension GERD (gastroesophageal reflux disease) Hypercholesterolemia Osteopenia Wellness examination Additional Source Comments Patient Care team informatio n (unrecognized section and content) 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 Technology Specialist Relationship Specialty Start Date End Date Bennett Banda MD [address] [place] [id number] PCP - General Internal Medicine 07/24/23 Team Status: Active Member Role Status Dates Bennett Banda DO Primary Care Provider Active Team Status: Active Member Role Status Dates Bennett Banda DO Primary Care Provider Active Start: September 18, 2023 NADINE Claudio Attending Provider Active Start : September 18, 2023 Team Status: Active Member Role Status Dates Bennett Banda DO Primary Care Provide r, Attending Provider Active Start: October 24, 2023 Team Status: Inactive Member Role Status Dates Bennett Banda DO Primary Care Provide r, Attending Provider Active Start: November 13, 2023 End: November 13, 2023 INFORMATION SOURCE (unrecogn ized section and content) DATE CREATED AUTHOR 10/26/2022 [facility] DATE CREATED AUTHOR AUTHOR'S ORGANIZ ATION 01/19/2024 [facility] EPIC DATE CREATED AUTHOR AUTHOR'S ORGANIZ ATION 06/02/2024 [facility] REASON FOR VISIT (unrecogniz ed section and content) wellnessRefillRefillNo Infor mationATBUTIATB reactionCheck Upbladder spasmsNo Information Goals (unrecognized section and content) Goals may be documented in a n alternate section FOR RECORDS PERTAINING TO PATIENTS WHO ARE [...] BE BASED ON THE PRIMARY CLINICAL RECORDS. [facility] provides no warranty or guarantee of the accuracy or completeness of information in this document.
[2024-06-04] MEDS: [UNRECOGNIZED DRUG - OTHER] IM (10:00)
== END 2024-06-04 07:42 | disposition home or self-care (01) ==
LOC: VACCLI 07:41
PROVIDERS: Family Provider Internal Medicine; PCP Internal Medicine; Visit Provider Internal Medicine
DX: Z23 Encounter for immunization (principal)
CPT/HCPCS: 90678

== ENCOUNTER 2024-08-28 06:55 | Outpatient (OUT) | payer BC, SELFPAY ==
--- NOTE | 2024-08-28 06:59 | MM_ITS ---
Patient Name: CORA MCKENZIE MR#: [id number] : 1945 Exam Date: 08/28/2024 Ordering Doctor: DR Bennett Banda D.O. RADIOLOGY REPORT PROCEDURE: MM TOMOSYNTHESIS SCREENING BI COMPARISON: MM TOMOSYNTHESIS SCREENING BI, 08/27/2023. MG MAMM SCREEN 3D JOSE CAD, 08/22/2022. MG MAMM SCREEN 3D JOSE CAD, 08/17/2021. MG MAMM JOSE SCRN W CAD DIG, 06/30/2013. INDICATIONS: Screening Calculator Name NCI Breast Cancer Risk Assessment Tool 5 Year Breast Cancer Risk 1.70% Lifetime Breast Cancer Risk 3.30% Personal Breast Cancer No Personal Ovarian Cancer No Treatments None Family Cancers None LOCATION: [facility] BREAST COMPOSITION: There are scattered areas of fibroglandular density. FINDINGS: DIAGNOSTIC CATEGORY 1--NEGATIVE. LEFT BREAST: No significant suspicious finding. RIGHT BREAST: No significant suspicious finding. RECOMMENDATIONS: ROUTINE MAMMOGRAM AND CLINICAL EVALUATION IN 12 MONTHS. PLEASE NOTE: A NORMAL MAMMOGRAM DOES NOT EXCLUDE THE POSSIBILITY OF BREAST CANCER. A CLINICALLY SUSPICIOUS PALPABLE LUMP SHOULD BE BIOPSIED. Dictated by: Clint Miller DO on 08/28/2024 at 10:45 Approved by: Clint Miller DO on 08/28/2024 at 10:46
--- OUTSIDE RECORDS SUMMARY | 2024-08-28 06:59 | XMS_ITS | CCD ---
Author Organization [facility] CliniSyar Care Team Providers Care Mobile Manager Name Role Phone BENNETT BANDA Primary Care [...] Primary Care Unavailable MANJIT, DARRELL Admitting Unavailable JIM, DR TACOS Donaldson Consulting Unavailable MANJIT, DARRELL Attending Unavailable MANJIT, DARRELL Consulting Unavailable BALL, DR TEJADA Primary Care Unavailable BALL, DR TEJADA Admitting Unavailable BALL, DR TEJADA Attending Unavailable BALL, DR TEJADA Consulting Unavailable ZiebChirag mckay Consulting Unavailable BALL, DR TEJADA Admitting Unavailable BALL, DR TEJADA Attending Unavailable BALL, DR TEJADA Consulting Unavailable BALL, DR TEJADA Primary Care Unavailable BALL, DR TEJADA Primary Care Unavailable BALL, DR TEJADA Consulting Unavailable BALL, DR TEJADA Admitting Unavailable BALL, DR TEJADA Attending Unavailable Solo, Bennett Unavailable Bennett Banda MD Primary Care Provider GERMANIA SANDOVAL Attending Unavailable GERMANIA SANDOVAL Referring Unavailable XENIA SHIELDS Attending Unavailable DARRELL SARAVIA Attending Unavailable DARRELL SARAVIA Attending Unavailable DARRELL SARAVIA Attending Unavailable DARRELL SARAVIA Admitting Unavailable Allergies Allergy Classification Reported Allergen(s) Allergy Type Date of Onset Reaction(s) Facility (1 source) Adhesive agent Drug allergy (disorder) [facility] (1 source) Aspirin Drug Allergy [facility] (1 source) natural latex rubber Drug allergy (disorder) [facility] (4 sources) patient allergy list reviewed by nurse or physicia Propensity to adverse reactions 12-04-201 3 Comment:Done [employer] Other (7 sources) Adhesive Tape; Translations: [Tape] Drug allergy Eruption of skin (disorder) [facility] [place] (6 sources) Ciprofloxacin; Translations: [ciprofloxacin] Drug Allergy 4 Floaters in visual field (finding) [facility] (1 source) Latex Allergy to substance 3 Rash [facility] Work Phone: (1 source) Wound Dressing Adhesive Drug Allergy 3 Rash [facility] Medications Current Medications Medication Drug Class(es) Dates Sig (Normalized) Sig (Original) 8 hr acetaminophen 650 mg extended release oral tablet (7 sources) Start: 04-30-2023 Tylenol 8 HR Arthritis Pain 650 mg oral tablet, extended release Refills(s) 0 Start Date: 04/30/23 Status: Ordered acetaminophen (T ylenol) 325 MG tablet every 6 (six) hours. 0 Active amLODIPine 5 mg oral tablet (20 sources) Dihydropyridine Calcium Channel Radha Start: 09-18-2023 take 1 tablet by mouth twice daily Amlodipine Active 0 .ROUTE .COMPLEX 180 September 18, 2023 9:56am TAKE 1 TABLET BY MOUTH TWICE A DAY Start: 03-05-2019 End: 09-18-2023 take 1 tablet by mouth twice [...] chewable tablet Vitamin C 0 Active Ocuvite (6 sources) Vitamin C Start: 3 take 1 [...] Status: Ordered atenolol 25 mg oral tablet (20 sources) beta-Adrenergic Radha Start: 9 take 1 [...] for 5 days Mar, Active Cranberry preparation (7 sources) Non-Standardized Food Allergenic Extract, Non-Standardized Plant [...] (2 sources) Angiotensin Converting Enzyme Inhibitor Start: 9 take 1 tablet by mouth [...] omeprazole 20 mg delayed release oral capsule (20 sources) Proton Pump Inhibitor Start: 04-15-2023 take 1 capsule by mouth once daily omeprazole 20 mg Cap-DR 20 mg = 1 cap(s), Oral, Daily, Refills(s) 0 Start Date: 04/15/23 Status: Ordered Start: 03-05-2019 take 2 capsules by m out once daily Prilosec 10 mg Cap-EC 20 mg = 2 cap(s), Oral, Daily, Refills(s) 0 Start Date: 03/05/19 Status: Ordered omeprazole OTC ( PriLOSEC OTC) 20 MG EC tablet 1 (one) time each day at the same time 0 Active pravastatin sodium 40 mg oral tablet (20 sources) HMG-CoA Reductase Inhibitor Start: 03-05-2019 take [...] / neomycin 3.5 mg/ml / polymyxin b 40976 unt/ml otic suspension (6 sources) Aminoglycoside Antibacterial, Polymyxin-class Antibacterial, Corticosteroid Start: 09-18-2023 End: 11-08-2023 Neomycin-Polymyxin -Hc Discontinued 0 .ROUTE .COMPLEX September 18, 2023 9:57am November 08, 2023 1:56pm INSTILL 4 DROPS INTO THE AFFECTED EAR AT BEDTIME NEEDED Start: 09-18-2023 End: 09-18-2023 Fojwbgty-Prylrfzpy-Qr Discon tinued 4 DROPS OTIC Daily at bedtime September 18, 2023 12:00am September 18, 2023 9:57am Start: 04-09-2023 neomycin-polym yxin-hydrocortisone (Cortisporin) 3.5-68206-6 otic suspension INSTILL 4 DROPS INTO THE AFFECTED EAR AT BEDTIME NEEDED 0 04/09/2023 Active Start: 04-09-2023 Neomycin-Polym yxin-HC 3.5-07045-4 4 drops into affected ear Otic q HS PRN for 30 days Mar, Active losartan potassium 50 mg oral tablet (19 sources) Angiotensin 2 Receptor Radha Start: 04-15-2023 losartan 50 mg Tab 5 0 mg = 1 tab(s), Oral, BID, Oral, [...] history of urinary calculi] Onset: 08-01-2022 Episodic Disorders of lipid metabolism (20 sources) Hyperlipidemia; Translations: [Pure hypercholesterolemia] Onset: 06-17-1957 03-05-2019 Chronic Endometriosis (11 sources) Endometriosis (clinical); Translations: [Endometriosis, unspecified] 03-05-2019 Chronic Esophageal disorders (20 sources) Gastroesophageal reflux disease; Translations: [Gastro-esophageal reflux disease with esophagitis] 03-05-2019 Chronic Essential hypertension (20 sources) Hypertensive disorder; Translations: [Essential hypertension] Onset: 01-14-2023 03-05-2019 Chronic Genitourinary congenital anomalies (7 sources) 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 Genitourinary [...] pain, unspecified] Resolved: 04-17-2020 Episodic Nutritional deficiencies (11 sources) Active rickets; Translations: [Vitamin D deficiency] [...] cartilage, unspecified] 11-13-2023 Episodic Other circulatory disease (16 sources) Carotid bruit; Translations: [Other specified symptoms [...] Chronic Other diseases of veins and lymphatics (20 sources) Peripheral venous insufficiency; Translations: [Venous insufficiency [...] otitis externa, bilateral Chronic Other endocrine disorders (20 sources) Primary hyperparathyroidism; Translations: [Primary hyperparathyroidism] 03-05-2019 [...] Episodic Other nutritional; endocrine; and metabolic disorders (17 sources) Hypercalcemia; Translations: [Hypercalcemia] 03-05-2019 Chronic Other nutritional; endocrine; and metabolic disorders (1 source) Hypercalcemia; Translations: [Hypercalcemia] Chronic Other nutritional; endocrine; and metabolic disorders (10 sources) Obesity; Translations: [Obesity, unspecified] 04-30-2023 Chronic Other nutritional; endocrine; and metabolic disorders (4 sources) Simple obesity ; Translations: [Other obesity due to excess calories] Onset: 06-17-1957 Chronic Other nutritional; endocrine; and metabolic disorders (10 sources) Body mass index 30+ - obesity; Translations: [Body mass index 30.0-30.9, adult] Onset: [birth year]17-1957 04-30-2023 Chronic Other screening for suspected conditions (not mental disorders or infectious disease) (8 sources) Encounter for screening mammogram for malignant neoplasm of breast; Translations: [Encounter for screening for malignant neoplasm of colon] Onset: 08-22-2022 Episodic Other upper respiratory disease (16 sources) Allergic rhinitis; Translations: [Vasomotor rhinitis] 04-15-2023 [...] [LOW BACK PAIN, UNSPECIFIED] Onset: 03-15-2022 Unclassified (6 sources) Osteopenia 04-15-2023 Unclassified (6 sources) Patient encounter status 04-30-2023 Urinary tract infections (20 sources) Cystitis; Translations: [Cystitis, unspecified without hematuria] Onset: 08-01-2022 Episodic Past or Other Problems Problem Classification Problem Date Documented Da te Episodic/Chronic Acquired foot deformities (4 sources) Acquired deformity of toe; Translations: [OTHER HAMMER TOE] Onset: 01-29-2017 Episodic Acute bronchitis (4 sources) Acute bronchitis; Translations: [Acute bronchitis, unspecified] Onset: 05-04-2014 Episodic Conditions associated with dizziness or vertigo (20 sources) Benign paroxysmal positional vertigo; Translations: [Benign paroxysmal vertigo, bilateral] Resolved: 04-15-2023 04-15-2023 Episodic Esophageal disorders (8 sources) Esophageal disorders; [...] Test Name Value Interpretation Reference Range Facility Urineon 07-03-2024 Bacteria identified Cx Nom (U) Microbiology PROCEDURE: Urine Culture [R1] SOURCE: U Random BODY SITE: COLLECTED DATE/TIME: 07/01/2024 12:04 EST RECEIVED DATE/TIME: 07/01/2024 18:42 EST START DATE/TIME: 07/01/2024 18:42 EST FREE TEXT SOURCE: Placido SKAGGS, Martina Cummins MD, Martina Nickerson FINAL REPORTS Final Report [] Verified Date/Time: 07/03/2024 09:19 EST >100,000 cfu/ml Escherichia coli SUSCEPTIBILITY RESULTS ____ LEGEND: S=Susceptible, N/R=Not Reported, Blank=Data not available, or drug not advisable or tested, I=Intermediate, ESBL=Extended spectrum beta-lactamase, R=Resistant, TFG=Thymidine-dependent strain, LIDA=Beta-lactamase positive, ADRIANA=mcg/m;(mg/L), S*=Predicted susceptible interp, R*=Predicted resistant interp ___ EC Antibiotic ADRIANA Dilutn ADRIANA Interp Ampicillin <=8 S Ampicillin/ <=8/4 S Sulbactam Aztreonam <=4 S Cefazolin <=2 S Cefepime <=2 S Ceftazidime <=1 S Ceftazidime/ <=8 S Avibactam Ceftriaxone <=1 S Cefuroxime <=4 S Ciprofloxacin <=0.25 S Ertapenem <=0.5 S Gentamicin <=2 S Levofloxacin <=0.5 S Meropenem <=1 S Nitrofurantoin <=32 S Piperacillin/ <=8 S Tazobactam Tetracycline <=4 S Tobramycin <=2 S Trimethoprim/ <=2/38 S Sulfa Performing Locations R1: This test was performed at: [facility], [address] [place] [address], [id number] , , Normal [facility] Comment on above: Performed By: #### 2 [id number] #### [facility] [address] [place] [id number] Urology Office/Clinic Noteon 06-02-2024 Urology Office/Clinic Note Urology Office/Clinic Note Chief Complaint 1 yr f/u HPI Staff 79 yr old here for 1 yr f/u DX: Recurrent Cystitis & Personal Hx of Kidney Stones, History of nephrolithiasis *No Urology Meds Dysuria: _no Incomplete bladder emptying: no Hematuria: _no Frequency: _q1-2 hrs Urgency: _at times Nocturia: _2x Stream: _normal Leaking: _rarely Post void dripping: _rarely Wearing pads/ Depends: _no Urge incontinence: _rarely Stress incontinence: _no Incontinence without Sensory Awareness: _no Abdominal pain: _no Flank pain: _no Sexual complaints: _ Review of Systems PHQ Score Initial Depression Screen Score: 0 SCORE Physical Exam Vitals & Measurements HR: 68(Peripheral) BP: 122/68 HT: 63 in HT: 160 cm WT: 74 kg WT: 163.142 lb BMI: 28.91 Assessment/Plan 1. Recurrent cystitis (N30.90: Cystitis, unspecified without hematuria) Has not called our office >1 yr for UTI sx. Pt thinks she may have had a UTI in the Summer, treated by PCP. I don't see any abx on her external pharmacy review. States maybe it was last year. Either way, doing really well. Takes Cystex when she feels one coming on and increases fluids. Typically sx resolve in a day or 2. UA today shows mod leuks but pt is asx so no indication to send for C&S, likely contamination. Pt knows to call office in future w any UTI sx. Ordered: E&M of Est. Patient Low 20-29 Min [id number] Urnls Dip Stick Auto w/o Microscopy POC [id number] 2. History of nephrolithiasis (Z87.442: Personal history of urinary calculi) Neg imaging Aug 2022. No recent imaging. No recent pain/gross hematuria. Ordered: E&M of Est. Patient Low 20-29 Min 13866 Offered continued scheduled follow up with our clinic vs following up PRN. Pt prefers the latter. Follow-up With When Contact Information [facility] Additional Instructions: Only if needed/new problems arise. No scheduled appointment indicated at this time. Patient Education Urinary Tract Infection, Adult Problem [...] oral tablet, extended release Allergies Tape (Rash) ciprofloxacin (Floaters in visual field) Social History Alcohol - Denies Alcohol Use, 03/05/2019 Current. Wine. 1-2 times per year., 06/02/2024 Substance Abuse - Denies Substance Abuse, 03/05/2019 Never., 06/02/2024 Tobacco Never (less than 100 in lifetime) Tobacco Use:., 06/02/2024 Family History Diabetes mellitus type 2: Mother. Heart disease: Father. Hypertension: Mother.Negative: Father. Immunizations Vaccine Date Status Comments influenza virus vaccine, inactivated 03/2023 Recorded SARS-CoV-2 (COVID-19) [id number] 03/28/2022 Recorded 2022-07-27: [id number] SARS-CoV-2 (COVID-19) mRNA-1273 vaccine 04/07/2021 Recorded SARS-CoV-2 (COVID-19) mRNA-1273 vaccine 07/13/2020 Recorded SARS-CoV-2 (COVID-19) mRNA-1273 vaccine 06/15/2020 Recorded influenza virus vaccine, inactivated 03/17/2019 Recorded influenza virus vaccine, inactivated - Not Given Postpone due to refusal Flu vaccine not offered at Endocrinology. Will receive through employer in March influenza virus vaccine, inactivated 03/29/2018 Recorded influenza virus vaccine, inactivated 07/01/2017 Recorded influenza virus vaccine, inactivated 05/17/2016 Recorded pneumococcal 13-valent vaccine 04/07/2015 Recorded pneumococcal 23-valent vaccine 03/21/2015 Recorded Lab Results Ambulatory Point of Care Results Bilirubin Urine Dipstick: Negative (06/02/24 12:13:00) Blood Urine Dipstick: Trace-intact (06/02/24 12:13:00) Glucose Urine Dipstick: Negative (06/02/24 12:13:00) Ketones Urine Dipstick: Negative (06/02/24 12:13:00) Leukocytes Urine Dipstick: 2+ Moderate (06/02/24 12:13:00) Nitrite Urine Dipstick: Negative (06/02/24 12:13:00) Protein Urine Dipstick: Negative (06/02/24 12:13:00) Specific [place] Urine Dipstick: 1 (more content not included)... Normal [facility] Comment on above: Result Comment: Elec tronically Signed By: DARRELL SARAVIA PA-C\.surjit\Date and Time Signed: 06/02/24 16:07 EST Basophils Auto (Bld) [#/Vol] on 10-24-2023 Basophils (Bld) [#/Vol] 0.0 10 3/uL 0.0-0.1 [facility] Basophils/100 WBC Auto (Bld) on 10-24-2023 Basophils/100 WBC (Bld) 0.8 % 0.2-2.0 [facility] Cholesterol in LDL Calc [Mas s/Vol]on 10-24-2023 Cholesterol in LDL [Mass/Vol] 89.2 mg/dL [facility] Comment on above: <100 mg/dl [id number] 0-129 mg/dl NEAR OR ABOVE [id number] mg/dl BORDERLINE [id number] mg/dl HIGH>190 mg/dl VERY HIGH Cholesterol in VLDL Calc [Ma ss/Vol]on 10-24-2023 Cholesterol in VLDL [Mass/Vol] 16.8 mg/dL [facility] Eosinophils/100 WBC Auto (Bl d)on 10-24-2023 Eosinophils/100 WBC (Bld) 2.3 % 0.9-7.0 [facility] Erythrocyte distribution wid th Auto (RBC) [Ratio]on 10-24-2023 Erythrocyte distribution width (RBC) [Ratio] 12.0 % 11.0-15.0 [facility] Estimated glomerular filtrat ion rate (GFR) non- Americanon 10-24-2023 GFR/1.73 sq M.predicted among non-blacks MDRD (S/P/Bld) [Vol rate/Area] mL/min/{1.73_m2} >=60 [facility] Globulin Calc (S) [Mass/Vol] on 10-24-2023 Globulin (S) [Mass/Vol] 3.3 g/dL [facility] Glucose mean value [Mass/vol ume] in Blood Estimated from glycated hemoglobinon 10-24-2023 Average glucose Estimated from glycated hemoglobin (Bld) [Mass/Vol] 105 mg/dL [facility] Hematocrit Auto (Bld) [Volum e fraction]on 10-24-2023 Hematocrit (Bld) [Volume fraction] 37.1 % 36.0-48.0 [facility] Hemoglobin [Mass/volume] in Bloodon 10-24-2023 Hemoglobin (Bld) [Mass/Vol] 12.4 g/dL 12.0-16.0 [facility] Laboratory - Chemistry and C hemistry - challengeon 10-24-2023 Albumin [Mass/Vol] 3.7 g/dL 3.4-5.0 [facility] ALP [Catalytic activity/Vol] 88 U/L 46-116 [facility] ALT [Catalytic activity/Vol] 21 U/L 14-59 [facility] AST [Catalytic activity/Vol] 20 U/L 15-37 [facility] Bilirubin [Mass/Vol] 0.7 mg/dL 0.2-1.0 [facility] Calcium [Mass/Vol] 10.2 mg/dL 8.5-10.1 [facility] Chloride [Moles/Vol] 103 mmol/L 98-107 [facility] Cholesterol [Mass/Vol] 164 mg/dL <=200 [facility] Cholesterol in HDL [Mass/Vol] 58 mg/dL 40-60 [facility] Comment on above: > or =60 mg/dl - LOW CARDIOVASCULAR RISK<40 mg/dl - HIGH CARDIOVASCULAR RISK CO2 [Moles/Vol] 27.9 mmol/L 21.0-32.0 [facility] Creatinine [Mass/Vol] 0.90 mg/dL 0.55-1.02 [facility] GFR/1.73 sq M.predicted MDRD (S/P/Bld) [Vol rate/Area] mL/min/{1.73_m2} >=60 [facility] Glucose [Mass/Vol] 95 mg/dL 74-106 [facility] Potassium [Moles/Vol] 4.1 mmol/L 3.5-5.1 [facility] Protein [Mass/Vol] 7.0 g/dL 6.4-8.2 [facility] Sodium [Moles/Vol] 139 mmol/L 136-145 [facility] Triglyceride [Mass/Vol] 84 mg/dL <=150 [facility] TSH Qn 1.534 m[IU]/L 0.358-3.740 [facility] Urea nitrogen [Mass/Vol] 21.0 mg/dL 7.0-18.0 [facility] Urea nitrogen/Creatinine [Mass ratio] 23.3 mg/mg [facility] Laboratory - Hematology and Cell countson 10-24-2023 HbA1c (Bld) [Mass fraction] 5.3 % 4.5-6.2 [facility] Comment on above: ADA RECOMMENDED LIMI T 4.0 - 6.0ADA THERAPEUTIC TARGET < 7.0ACTION SUGGESTED> 7.0 Immature granulocytes/100 WBC (Bld) 0.2 % 0.0-0.5 [facility] Leukocytes [#/volume] correc maren for nucleated erythrocytes in Blood by Automated counon 10-24-2023 WBC corrected for nucl RBC Auto (Bld) [#/Vol] 5.2 10 3/uL 4.0-11.0 [facility] Lymphocytes Auto (Bld) [#/Vo l]on 10-24-2023 Lymphocytes (Bld) [#/Vol] 1.0 10 3/uL 1.2-3.8 [facility] Lymphocytes/100 WBC Auto (Bl d)on 10-24-2023 Lymphocytes/100 WBC (Bld) 19.5 % 20.5-60.0 [facility] MCH Auto (RBC) [Entitic mass ]on 10-24-2023 MCH (RBC) [Entitic mass] 29.5 pg 26.7-34.0 [facility] MCHC Auto (RBC) [Mass/Vol]on 10-24-2023 MCHC (RBC) [Mass/Vol] 33.4 g/dL 29.9-35.2 [facility] MCV Auto (RBC) [Entitic vol] on 10-24-2023 MCV (RBC) [Entitic vol] 88.1 fL 81.0-99.0 [facility] Monocytes Auto (Bld) [#/Vol] on 10-24-2023 Monocytes (Bld) [#/Vol] 0.6 10 3/uL 0.3-0.8 [facility] Monocytes/100 WBC Auto (Bld) on 10-24-2023 Monocytes/100 WBC (Bld) 10.7 % 1.7-12.0 [facility] Neutrophils Auto (Bld) [#/Vo l]on 10-24-2023 Neutrophils (Bld) [#/Vol] 3.5 10 3/uL 1.4-6.5 [facility] Neutrophils/100 WBC Auto (Bl d)on 10-24-2023 Neutrophils/100 WBC (Bld) 66.5 % 43.0-75.0 [facility] No Panel Informationon 10-23 Eosinophils # (Auto) 0.1 10 3/uL 0.0-0.7 [facility] Immature Granulocyte # (Auto) 0.01 10 3/uL 0.00-0.03 [facility] Platelet mean volume Auto (B ld) [Entitic vol]on 10-24-2023 Platelet mean volume (Bld) [Entitic vol] 10.8 fL 9.5-13.5 [facility] Platelets Auto (Bld) [#/Vol] on 10-24-2023 Platelets (Bld) [#/Vol] 234 10 3/uL 150-450 [facility] RBC Auto (Bld) [#/Vol]on RBC (Bld) [#/Vol] 4.21 10 6/uL 4.20-5.40 [facility] Serum or plasma albumin/glob ulin mass ratioon 10-24-2023 Albumin/Globulin [Mass ratio] 1.1 {ratio} [facility] Serum or plasma anion gap de terminationon 10-24-2023 Anion gap [Moles/Vol] 12.2 mmol/L [facility] Serum or plasma total choles terol/high density lipoprotein (HDL) cholesterol mass karly 10-24-2023 Cholesterol.total/C holesterol in HDL [Mass ratio] 2.8 {ratio} [facility] Comment on above: 3.3 - 4.4 [...] right total knee replacement Vasu Yun D.O. [facility] XR Knee - right 1 or 2 Views Ordered By: Edilson Yun on 07-25-2023 [facility] [employer] Work Phone: XR Knee - right 1 or 2 Views on 07-24-2023 Radiology Study observation (narrative) [facility] UA RANDOM W/MICROSCOPICon Clarity (U) CLEAR CLEAR [employer] Other Color (U) YELLOW YELLOW [employer] Other Ketones Ql (U) Negative NEGATIVE mg/dL [employer] Other Leukocyte esterase Test strip Ql (U) TRACE Abnormal NEGATIVE [employer] Other pH (U) 6.0 [pH] 5.0-9.0 [employer] Other UA RANDOM W/MICROSCOPIC 2-5 #/HPF Abnormal 0-2 #/HPF [employer] Other UA RANDOM W/MICROSCOPIC see note [employer] Other UA RANDOM W/MICROSCOPIC 1.020 1.005-1.025 [employer] Other UA RANDOM W/MICROSCOPIC TRACE mg/dL NEG/TRACE mg/dL [employer] Other UA RANDOM W/MICROSCOPIC Negative NEGATIVE [employer] Other UA RANDOM W/MICROSCOPIC TRACE-I NEGATIVE [employer] Other UA RANDOM W/MICROSCOPIC 0.2 EU/dL 0.2-1.0 EU/dL [employer] Other UA RANDOM W/MICROSCOPIC TRACE #/HPF Abnormal NONE SEEN #/HPF [employer] Other UA RANDOM W/MICROSCOPIC TRACE Abnormal NONE SEEN [employer] Other UA RANDOM W/MICROSCOPIC FEW #/LPF Abnormal NONE/RARE #/LPF [employer] Other UA RANDOM W/MICROSCOPIC None Seen #/HPF None Seen #/HPF [employer] Other UA RANDOM W/MICROSCOPIC NONE SEEN #/LPF NONE SEEN #/LPF [employer] Other UA RANDOM W/MICROSCOPIC ALREADY ORDERED [employer] Other CBC AUTO DIFFon 10-19-2022 BASO # 0.0 103/ul Normal 0.0-0.1 [facility] Comment on above: Performed By: #### U RCX #### [facility] [address] [address] [address] Sheryl Zaragoza Basophils/100 WBC (Bld) 0.8 % Normal 0.2-2.0 [facility] Comment on above: Performed By: #### U RCX #### [facility] [address] [address] [address] Sheryl Zaragoza EO # 0.1 103/ul Normal 0.0-0.7 [facility] Comment on above: Performed By: #### U RCX #### [facility] [address] [place] [address] Dr. Sheryl Zaragoza Eosinophils/100 WBC (Bld) 2.5 % Normal 0.9-7.0 [facility] Comment on above: Performed By: #### U RCX #### [facility] [address] [place] [address] Dr. Sheryl Zaragoza Erythrocyte distribution width (RBC) [Ratio] 11.9 % Normal 11.0-15.0 [facility] Comment on above: Performed By: #### U RCX #### [facility] [address] [place] [address] Dr. Sheryl Zaragoza Hematocrit (Bld) [Volume fraction] 37.5 % Normal 36.0-48.0 [facility] Comment on above: Performed By: #### U RCX #### [facility] [address] [address] [address] Sheryl Zaragoza Hemoglobin (Bld) [Mass/Vol] 12.8 g/dL Normal 12.0-16.0 [facility] Comment on above: Performed By: #### U RCX #### [facility] [address] [place] [address] Dr. Sheryl Zaragoza IG # 0.01 10e3/ul Normal 0.00-0.03 [facility] Comment on above: Performed By: #### U RCX #### [facility] [address] [place] [address] Dr. Sheryl Zaragoza IG % 0.3 % Normal 0.0-0.5 [facility] Comment on above: Performed By: #### U RCX #### [facility] [address] [address] [address] Sheryl Zaragoza LYMPH # 0.8 103/ul Critically low 1.2-3.8 [facility] Comment on above: Performed By: #### U RCX #### [facility] [address] [place] [address] Dr. Sheryl Zaragoza Lymphocytes/100 WBC (Bld) 21.1 % Normal 20.5-60.0 [facility] Comment on above: Performed By: #### U RCX #### [facility] [address] [place] [address] Dr. Sheryl Zaragoza MANUAL DIFF REQ NO Normal [facility] Comment on above: Performed By: #### U RCX #### [facility] [address] [place] [address] Dr. Sheryl Zaragoza MCH (RBC) [Entitic mass] 30.1 pg Normal 26.7-34.0 [facility] Comment on above: Performed By: #### U RCX #### [facility] [address] [place] [address] Dr. Sheryl Zaragoza MCHC (RBC) [Mass/Vol] 34.1 g/dL Normal 29.9-35.2 [facility] Comment on above: Performed By: #### U RCX #### [facility] [address] [place] [address] Dr. Sheryl Zaragoza MCV (RBC) [Entitic vol] 88.2 fL Normal 81.0-99.0 [facility] Comment on above: Performed By: #### U RCX #### [facility] [address] [place] [address] Dr. Sheryl Zaragoza MONO # 0.4 103/ul Normal 0.3-0.8 [facility] Comment on above: Performed By: #### U RCX #### [facility] [address] [place] [address] Dr. Sheryl Zaragoza Monocytes/100 WBC (Bld) 10.8 % Normal 1.7-12.0 [facility] Comment on above: Performed By: #### U RCX #### [facility] [address] [place] [address] Dr. Sheryl Zaragoza NEUT # 2.6 103/ul Normal 1.4-6.5 [facility] Comment on above: Performed By: #### U RCX #### [facility] [address] [place] [address] Dr. Sheryl Zaragoza Neutrophils/100 WBC (Bld) 64.5 % Normal 43.0-75.0 [facility] Comment on above: Performed By: #### U RCX #### [facility] [address] [place] [address] Dr. Sheryl Zaragoza Platelet mean volume (Bld) [Entitic vol] 10.5 fL Normal 9.5-13.5 [facility] Comment on above: Performed By: #### U RCX #### [facility] [address] [place] [address] Dr. Sheryl Zaragoza PLT 229 103/ul Normal 150-450 [facility] Comment on above: Performed By: #### U RCX #### [facility] [address] [place] [address] Dr. Sheryl Zaragoza RBC 4.25 106/ul Normal 4.20-5.40 [facility] Comment on above: Performed By: #### U RCX #### [facility] [address] [place] [address] Dr. Shreyl Zaragoza WBC 4.0 103/ul Normal 4.0-11.0 [facility] Comment on above: Performed By: #### U RCX #### [facility] [address] [place] [address] Dr. Sheryl Zaragoza GLYCOHEMOGLOBIN A1Con 2022 ADA RECOMMENDATION SEE BELOW Normal [facility] Comment on above: Result Comment: ADA RECOMMENDED LIMIT 4.0 - 6.0 ADA THERAPEUTIC TARGET < 7.0 ACTION SUGGESTED > 7.0 Performed By: #### A 1C #### [facility] [address] [place] [address] Dr. Sheryl Zaragoza Glucose [Mass/Vol] 103 mg/dL Normal [facility] Comment on above: Performed By: #### A 1C #### [facility] [address] [address] [address] Sheryl Zaragoza HbA1c (Bld) [Mass fraction] 5.2 % Normal 4.5-6.2 [facility] Comment on above: Performed By: #### A 1C #### [facility] [address] [place] [address] Dr. Sheryl Zaragoza LIPID PROFILEon 10-19-2022 CHOL-HDL RATIO NORM SEE BELOW Normal [facility] Comment on above: Result Comment: 3.3 - 4.4 LOW RISK 4.4 - 7.1 AVERAGE RISK 7.1 - 11.0 MODERATE RISK >11.0 HIGH RISK Performed By: #### C MP, LIPID, TSH #### [facility] [address] [place] [address] Dr. Sheryl Zaragoza Cholesterol [Mass/Vol] 185 mg/dL Normal <=200 [facility] Comment on above: Performed By: #### C MP, LIPID, TSH #### [facility] [address] [place] [address] Dr. Sheryl Zaragoza Cholesterol in HDL [Mass/Vol] 63 mg/dL Critically high 40-60 [facility] Comment on above: Performed By: #### C MP, LIPID, TSH #### [facility] [address] [address] [address] Sheryl Zaragoza Cholesterol in LDL [Mass/Vol] 103.8 mg/dL Normal [facility] Comment on above: Performed By: #### C MP, LIPID, TSH #### [facility] [address] [place] [address] Dr. Sheryl Zaragoza Cholesterol.total/C holesterol in HDL [Mass ratio] 2.9 {ratio} Normal [facility] Comment on above: Performed By: #### C MP, LIPID, TSH #### [facility] [address] [address] [address] Sheryl Zaragoza HDL NORMAL > or = 60 mg/dl - LO W CARDIOVASCULAR RISK <40 mg/dl - HIGH CARDIOVASCULAR RISK Normal [facility] Comment on above: Performed By: #### C MP, LIPID, TSH #### [facility] [address] [address] [address] Sheryl Zaragoza LDL CALC NORMAL SEE BELOW Normal [facility] Comment on above: Result Comment: <100 mg/dl OPTIMAL 100 - 129 mg/dl NEAR OR ABOVE OPTIMAL 130 - 159 mg/dl BORDERLINE HIGH 160 - 189 mg/dl HIGH >190 mg/dl VERY HIGH Performed By: #### C MP, LIPID, TSH #### [facility] [address] [address] [address] Sheryl Zaragoza Triglyceride [Mass/Vol] 91 mg/dL Normal <=150 [facility] Comment on above: Performed By: #### C MP, LIPID, TSH #### [facility] [address] [address] [address] Sheryl Zaragoza VLDL CALC 18.2 mg/dL Normal [facility] Comment on above: Performed By: #### C MP, LIPID, TSH #### [facility] [address] [address] [address] Sheryl Zaragoza PROF 14(COMP METB)on 023 Albumin [Mass/Vol] 3.7 g/dL Normal 3.4-5.0 [facility] Comment on above: Performed By: #### C MP, LIPID, TSH #### [facility] [address] [address] [address] Sheryl Zaragoza Albumin/Globulin [Mass ratio] 1.1 {ratio} Normal [facility] Comment on above: Performed By: #### C MP, LIPID, TSH #### [facility] [address] [address] [address] Sheryl Zaragoza ALP [Catalytic activity/Vol] 81 U/L Normal 46-116 [facility] Comment on above: Performed By: #### C MP, LIPID, TSH #### [facility] [address] [address] [address] Sheryl Zaragoza ALT [Catalytic activity/Vol] 24 U/L Normal 14-59 [facility] Comment on above: Performed By: #### C MP, LIPID, TSH #### [facility] [address] [address] [address] Sheryl Zaragoza Anion gap [Moles/Vol] 8.2 mmol/L Normal [facility] Comment on above: Performed By: #### C MP, LIPID, TSH #### [facility] [address] [address] [address] Sheryl Zaragoza AST [Catalytic activity/Vol] 17 U/L Normal 15-37 [facility] Comment on above: Performed By: #### C MP, LIPID, TSH #### [facility] [address] [place] [address] Dr. Sheryl Zaragoza Bilirubin [Mass/Vol] 0.5 mg/dL Normal 0.2-1.0 [facility] Comment on above: Performed By: #### C MP, LIPID, TSH #### [facility] [address] [address] [address] Sheryl Zaragoza Calcium [Mass/Vol] 9.9 mg/dL Normal 8.5-10.1 [facility] Comment on above: Performed By: #### C MP, LIPID, TSH #### [facility] [address] [place] [address] Dr. Sheryl Zaragoza Chloride [Moles/Vol] 102 mmol/L Normal 98-107 [facility] Comment on above: Performed By: #### C MP, LIPID, TSH #### [facility] [address] [address] [address] Sheryl Zaragoza CO2 [Moles/Vol] 30.2 mmol/L Normal 21.0-32.0 [facility] Comment on above: Performed By: #### C MP, LIPID, TSH #### [facility] [address] [address] [address] Sheryl Zaragoza Creatinine [Mass/Vol] 0.88 mg/dL Normal 0.55-1.02 [facility] Comment on above: Performed By: #### C MP, LIPID, TSH #### [facility] [address] [address] [address] Sheryl Zaragoza EGFR-AF PUERTO RICAN >60 Normal >=60 [facility] Comment on above: Performed By: #### C MP, LIPID, TSH #### [facility] [address] [address] [address] Sheryl Zaragoza EGFR-NON AF PUERTO RICAN >60 Normal >=60 [facility] Comment on above: Performed By: #### C MP, LIPID, TSH #### [facility] [address] [address] [address] Sheryl Zaragoza Globulin (S) [Mass/Vol] 3.4 g/dL Normal [facility] Comment on above: Performed By: #### C MP, LIPID, TSH #### [facility] [address] [address] [address] Sheryl Zaragoza Glucose [Mass/Vol] 97 mg/dL Normal 74-106 [facility] Comment on above: Performed By: #### C MP, LIPID, TSH #### [facility] [address] [address] [address] Sheryl Zaragoza Potassium [Moles/Vol] 4.4 mmol/L Normal 3.5-5.1 [facility] Comment on above: Performed By: #### C MP, LIPID, TSH #### [facility] [address] [address] [address] Sheryl Zaragoza Protein [Mass/Vol] 7.1 g/dL Normal 6.4-8.2 [facility] Comment on above: Performed By: #### C MP, LIPID, TSH #### [facility] [address] [address] [address] Sheryl Zaragoza Sodium [Moles/Vol] 136 mmol/L Normal 136-145 [facility] Comment on above: Performed By: #### C MP, LIPID, TSH #### [facility] [address] [address] [address] Sheryl Zaragoza Urea nitrogen [Mass/Vol] 14.0 mg/dL Normal 7.0-18.0 [facility] Comment on above: Performed By: #### C MP, LIPID, TSH #### [facility] [address] [place], [place] [address] Dr. Sheryl Zaragoza Urea nitrogen/Creatinine [Mass ratio] 15.9 mg/mg Normal [facility] Comment on above: Performed By: #### C MP, LIPID, TSH #### [facility] [address] [place], [place] [address] Dr. Sheryl Zaragoza TSHon 10-19-2022 TSH 1.288 uIU/mL Normal 0.358-3.740 [facility] Comment on above: Performed By: #### C MP, LIPID, TSH #### [facility] [address] [place], [place] [address] Dr. Sheryl Zaragoza MG MAMM SCREEN 3D JOSE CADon 08-22-2022 MG MAMM SCREEN 3D JOSE CAD Patient: ZAKIYA MCKENZIE Exam Date: 08/22/2022 : 1945 Gender:F Ordering : DR BENNETT BANDA D.O. Admission #: [id number] Family : Order #: [id number] CLICK HERE TO VIEW EXAM RADIOLOGY REPORT [...] No Treatments None Family Cancers None LOCATION: [facility] BREAST COMPOSITION: Scattered areas fibroglandular density. [...] Russell M.D. on 08/22/2022 at 17:08 Normal [facility] US KIDNEYSon 08-15-2022 US KIDNEYS EXAMINATION: US CAROL GARCIA HISTORY: H/O: urinary stone COMPARISON: No relevant [...] by: TACOS FERNANDEZ Date: 2022-08-15 08:35 Normal [facility] XR KUB 1 VIEWon 08-15-2022 XR [...] TACOS FERNANDEZ Date: 2022-08-15 09:25 Normal [facility] CULTURE URINEon 06-27-2022 CULTURE URINE Culture Observations : NO GROWTH. Normal [facility] Comment on above: Performed By: #### U RCX #### [facility] [address] [place] [address] Dr. Sheryl Zaragoza UA RANDOM W/MICROSCOPICon BACTERIA NONE SEEN Normal NONE SEEN [facility] Comment on above: Performed By: #### U RCX #### [facility] [address] [place] [address] Dr. Sheryl Zaragoza Bilirubin Ql (U) Negative Normal NEGATIVE [facility] Comment on above: Performed By: #### U RCX #### [facility] [address] [place] [address] Dr. Sheryl Zaragoza CAST SEEN Abnormal NONE SEEN [facility] Comment on above: Performed By: #### U RCX #### [facility] [address] [place] [address] Dr. Sheryl Zaragoza Clarity (U) CLEAR Normal CLEAR [facility] Comment on above: Performed By: #### U RCX #### [facility] [address] [place] [address] Dr. Sheryl Zaragoza Color (U) YELLOW Normal YELLOW [facility] Comment on above: Performed By: #### U RCX #### [facility] [address] [place] [address] Dr. Sheryl Zaragoza Crystals LM Nom (Urine sed) NONE SEEN Normal NONE SEEN [facility] Comment on above: Performed By: #### U RCX #### [facility] [address] [place] [address] Dr. Sheryl Zaragoza Epithelial cells LM Ql (Urine sed) RARE Normal NONE SEEN /RARE [facility] Comment on above: Performed By: #### U RCX #### [facility] [address] [place] [address] Dr. Sheryl Zaragoza Glucose Ql (U) Negative Normal NEGATIVE [facility] [place] [facility] Comment on above: Performed By: #### U RCX #### [facility] [address] [place] [address] Dr. Sheryl Zaragoza Hemoglobin Ql (U) Negative Normal NEGATIVE [facility] Comment on above: Performed By: #### U RCX #### [facility] [address] [place] [address] Dr. Sheryl Zaragoza Ketones Ql (U) TRACE Abnormal NEGATIVE [facility] [place] [facility] Comment on above: Performed By: #### U RCX #### [facility] [address] [place] [address] Dr. Sheryl Zaragoza LEUKOCYTES Negative Normal NEGATIVE [facility] Comment on above: Performed By: #### U RCX #### [facility] [address] [place] [address] Dr. Sheryl Zaragoza MUCOUS NONE SEEN Normal NONE SEEN [facility] Comment on above: Performed By: #### U RCX #### [facility] [address] [place] [address] Dr. Sheryl Zaragoza Nitrite Ql (U) Negative Normal NEGATIVE [facility] Comment on above: Performed By: #### U RCX #### [facility] [address] [place] [address] Dr. Sheryl Zaragoza pH (U) 6.5 [pH] Normal 5-9 [facility] Comment on above: Performed By: #### U RCX #### [facility] [address] [place] [address] Dr. Sheryl Zaragoza RBC 0-2 Normal 0-2 [facility] Comment on above: Performed By: #### U RCX #### [facility] [address] [place] [address] Dr. Sheryl Zaragoza SPEC GRAVITY 1.010 Normal 1.005-<=1.02 5 [facility] Comment on above: Performed By: #### U RCX #### [facility] [address] [place] [address] Dr. Sheryl Zaragoza UA PROTEIN Negative Normal NEGATIVE/ TRACE [facility] Comment on above: Performed By: #### U RCX #### [facility] [address] [place] [address] Dr. Sheryl Zaragoza Urobilinogen Qn (U) 0.2 {Sena'U}/dL Normal 0.2 - 1. 0 [facility] Comment on above: Performed By: #### U RCX #### [facility] [address] [place] [address] Dr. Sheryl Zaragoza WBC 0-2 Abnormal NONE SEEN [facility] Comment on above: Performed By: #### U RCX #### [facility] [address] [place] [address] Dr. Sheryl Zaragoza CULTURE URINEon 04-04-2022 CULTURE URINE Culture Observations : LIGHT GROWTH OF MIXED GENITAL JUDY. NO POTENTIAL PATHOGENS SEEN. Normal [facility] Comment on above: Performed By: #### U RCX #### [facility] [address] [address] [address] Sheryl Zaragoza UA RANDOM W/MICROSCOPICon BACTERIA NONE SEEN Normal NONE SEEN [facility] Comment on above: Performed By: #### U AMIC #### [facility] [address] [place] [address] Dr. Sheryl Zaragoza Bilirubin Ql (U) Negative Normal NEGATIVE [facility] Comment on above: Performed By: #### U AMIC #### [facility] [address] [place] [address] Dr. Sheryl Zaragoza CAST NONE SEEN Normal NONE SEEN [facility] Comment on above: Performed By: #### U AMIC #### [facility] [address] [place] [address] Dr. Sheryl Zaragoza Clarity (U) CLEAR Normal CLEAR [facility] Comment on above: Performed By: #### U AMIC #### [facility] [address] [place] [address] Dr. Sheryl Zaragoza Color (U) LT. YELLOW Normal YELLOW [facility] Comment on above: Performed By: #### U AMIC #### [facility] [address] [address] [address] Sheryl Zaragoza Crystals LM Nom (Urine sed) NONE SEEN Normal NONE SEEN [facility] Comment on above: Performed By: #### U AMIC #### [facility] [address] [place] [address] Dr. Sheryl Zaragoza Epithelial cells LM Ql (Urine sed) FEW Abnormal NONE SEEN /RARE [facility] Comment on above: Performed By: #### U AMIC #### [facility] [address] [place] [address] Dr. Sheryl Zaragoza Glucose Ql (U) Negative Normal NEGATIVE [facility] Comment on above: Performed By: #### U AMIC #### [facility] [address] [place] [address] Dr. Sheryl Zaragoza Hemoglobin Ql (U) Negative Normal NEGATIVE [facility] Comment on above: Performed By: #### U AMIC #### [facility] [address] [place] [address] Dr. Sheryl Zaragoza Ketones Ql (U) Negative Normal NEGATIVE [facility] Comment on above: Performed By: #### U AMIC #### [facility] [address] [address] [address] Sheryl Zaragoza LEUKOCYTES Negative Normal NEGATIVE [facility] Comment on above: Performed By: #### U AMIC #### [facility] [address] [address] [address] Sheryl Zaragoza MUCOUS NONE SEEN Normal NONE SEEN [facility] Comment on above: Performed By: #### U AMIC #### [facility] [address] [place] [address] Dr. Sheryl Zaragoza Nitrite Ql (U) Negative Normal NEGATIVE [facility] Comment on above: Performed By: #### U AMIC #### [facility] [address] [place] [address] Dr. Sheryl Zaragoza pH (U) 6.0 [pH] Normal 5-9 [facility] Comment on above: Performed By: #### U AMIC #### [facility] [address] [place] [address] Dr. Sheryl Zaragoza RBC NONE SEEN Abnormal 0-2 [facility] Comment on above: Performed By: #### U AMIC #### [facility] [address] [place] [address] Dr. Sheryl Zaragoza SPEC GRAVITY 1.010 Normal 1.005-<=1.02 5 [facility] Comment on above: Performed By: #### U AMIC #### [facility] [address] [place] [address] Dr. Sheryl Zaragoza UA PROTEIN Negative Normal NEGATIVE/ TRACE [facility] Comment on above: Performed By: #### U AMIC #### [facility] [address] [place] [address] Dr. Sheryl Zaragoza Urobilinogen Qn (U) 0.2 {Sena'U}/dL Normal 0.2 - 1. 0 [facility] Comment on above: Performed By: #### U AMIC #### [facility] [address] [address] [address] Sheryl Zaragoza WBC 0-2 Abnormal NONE SEEN [facility] Comment on above: Performed By: #### U AMIC #### [facility] [address] [id number] Sheryl Zaragoza XR LSPINE 2_3 VIEWSon [...] TACOS FERNANDEZ Date: 2022-03-13 18:30 Normal [facility] Vital Signs Date Time Vital Sign Value Performing Clinician Facility 06-02-2024 12:06-0500 Blood Pressure Location DARRELL SARAVIA [facility] 06-02-2024 12:06-0500 Diastolic blood pressure 68 mm[Hg] DARRELL SARAVIA [facility] 06-02-2024 12:06-0500 Heart rate 68 /min DARRELL SARAVIA [facility] 06-02-2024 12:06-0500 Systolic blood pressure 122 mm[Hg] DARRELL SARAVIA [facility] 11-13-2023 11:37-0400 Body height 160.02 cm [facility] 11-13-2023 11:37-0400 Body mass index (BMI) [Ratio] 29.2 kg/m2 [facility] 11-13-2023 11:37-0400 Body weight 75.06 kg [facility] 11-13-2023 11:37-0400 Diastolic blood pressure 67 mm[Hg] [facility] 11-13-2023 11:37-0400 Heart rate 53 /min [facility] 11-13-2023 11:37-0400 Respiratory rate 12 /min [facility] 11-13-2023 11:37-0400 Systolic blood pressure 130 mm[Hg] [facility] 05-28-2023 11:21-0500 Blood Pressure Location DARRELL MANJIT [facility] 05-28-2023 11:21-0500 Diastolic blood pressure 79 mm[Hg] DARRELL MANJIT [facility] 05-28-2023 11:21-0500 Heart rate 80 /min DARRELL MANJIT [facility] 05-28-2023 11:21-0500 Respiratory rate 16 /min DARRELL MANJIT [facility] 05-28-2023 11:21-0500 Systolic blood pressure 128 mm[Hg] DARRELL MANJIT [facility] 04-30-2023 13:48-0500 Blood Pressure Location Diomedes NILL [facility] 04-30-2023 13:48-0500 Diastolic blood pressure 72 mm[Hg] Diomedes NILL [facility] 04-30-2023 13:48-0500 Heart rate 72 /min Diomedes NILL [facility] 04-30-2023 13:48-0500 Respiratory rate 16 /min Diomedes NILL [facility] 04-30-2023 13:48-0500 Systolic blood pressure 138 mm[Hg] Diomedes YBARRA [facility] [place] 04-09-2023 11:30-0400 Body height 160.02 cm Bennett Ball Other [employer] Other 04-09-2023 11:30-0400 Body mass index (BMI) [Ratio] 30.18 kg/m2 Bennett Ball Other [employer] Other 04-09-2023 11:30-0400 Body weight 77.29 kg Bennett Ball Other [employer] Other 04-09-2023 11:30-0400 Diastolic blood pressure 60 mm[Hg] Bennett Ball Other [employer] Other 04-09-2023 11:30-0400 Respiratory rate 12 /min Bennett Ball Other [employer] Other 04-09-2023 11:30-0400 Systolic blood pressure 120 mm[Hg] Bennett Ball Other [employer] Other 11-09-2022 10:30-0400 Body height 160.02 cm Bennett Ball Other [employer] Other 11-09-2022 10:30-0400 Body mass index (BMI) [Ratio] 29.51 kg/m2 Bennett Ball Other [employer] Other 11-09-2022 10:30-0400 Body weight 75.57 kg Bennett Ball Other [employer] Other 11-09-2022 10:30-0400 Diastolic blood pressure 73 mm[Hg] Bennett Ball Other [employer] Other 11-09-2022 10:30-0400 Respiratory rate 16 /min Bennett Banda Other [facility] [employer] Other 11-09-2022 10:30-0400 Systolic blood pressure 147 mm[Hg] Bennett Banda Other [facility] [employer] [facility] Other 08-01-2022 09:49-0500 Blood Pressure Location DARRELLEDNA SARAVIA [facility] 08-01-2022 09:49-0500 Diastolic blood pressure 62 mm[Hg] DARRELL SARAVIA [facility] 08-01-2022 09:49-0500 Heart rate 52 /min DARRELL MANJIT [facility] 08-01-2022 09:49-0500 Systolic blood pressure 133 mm[Hg] DARRELLEDNA SARAVIA [facility] Encounters Encounter Date Encounter Type Care Provider Facility Start: 07-01-2024 End: 07-01-2024 Lab Drop off DARRELL SARAVIA [facility] Start: 07-01-2024 End: 07-01-2024 ambulatory DARRELL SARAVIA Facility[place] Start: 07-01-2024 End: 07-01-2024 Patient encounter procedure DARRELL PORTILLORY [facility] Start: 06-02-2024 End: 06-02-2024 ambulatory DARRELL SARAVIA Facility:[facility] Start: 06-02-2024 End: 06-02-2024 Patient encounter procedure DARRELL PORTILLORY [facility] Start: 01-16-2024 End: 01-16-2024 ambulatory XENIA SHIELDS Not Available Start: 11-13-2023 End: 11-13-2023 ambulatory [facility] Work Phone: Start: 11-13-2023 End: 11-13-2023 Encounter for general adult medical examination without abnormal findings [facility] Start: 11-13-2023 End: 11-13-2023 Patient encounter procedure [facility] Work Phone: Start: 10-24-2023 Non-patient / Non-visit [facility] Work Phone: Start: 09-18-2023 Non-patient / Non-visit [facility] Physician [facility] [employer] Work Phone: Start: 07-24-2023 End: 07-24-2023 Office outpatient visit 10 minutes Germania Sandoval SUPERVISOR [employer] Work Phone: [facility] Comment on above: Status post total ri ght knee replacement (Primary Dx) Start: 07-24-2023 End: 07-24-2023 ambulatory GERMANIA SANDOVAL Not Available Start: 05-30-2023 End: 05-30-2023 ambulatory Bennett Banda Other [facility] Other Start: 05-30-2023 Telephone encounter Bennett Banda [facility] Start: 05-28-2023 End: 05-28-2023 Patient encounter procedure DARRELL SARAVIA [facility] Start: 05-06-2023 End: 05-06-2023 Patient encounter procedure DARRELL SARAVIA [facility] Start: 04-30-2023 End: 04-30-2023 Patient encounter procedure Diomedes YBARRA [facility] Start: 04-18-2023 End: 04-18-2023 ambulatory Bennett Ball Other [employer] Other Start: 04-18-2023 Telephone encounter Bennett Ball [facility] Start: 04-09-2023 End: 04-09-2023 ambulatory Bennett Ball Other [employer] Other Start: 04-09-2023 Office outpatient vi sit 25 minutes Bennett Ball [facility] Start: 04-01-2023 End: 04-01-2023 ambulatory Bennett Ball Other [employer] Other Start: 04-01-2023 Telephone encounter Bennett Ball [facility] Start: 03-27-2023 End: 03-27-2023 ambulatory Bennett Ball Other [employer] Other Start: 03-27-2023 Telephone encounter Bennett Ball [facility] Start: 12-14-2022 End: 12-14-2022 ambulatory Bennett Ball Other [employer] Other Start: 12-14-2022 Telephone encounter Bennett Ball [facility] Start: 12-13-2022 End: 12-13-2022 ambulatory Bennett Ball Other [employer] Other Start: 12-13-2022 Telephone encounter Bennett Ball [facility] Start: 12-12-2022 End: 12-12-2022 ambulatory Bennett Ball Other [employer] Other Start: 12-12-2022 Telephone encounter Bennett Ball [facility] Start: 11-09-2022 End: 11-09-2022 ambulatory Bennett Ball Other [employer] Other Start: 11-09-2022 Encounter for genera l adult medical examination without abnormal findings Bennett Banda [facility] Start: 11-09-2022 Periodic preventive med est patient 65yrs& older Bennett Banda [facility] Start: 10-25-2022 Encounter for genera l adult medical examination without abnormal findings DR BENNETT BANDA [facility] Start: 10-19-2022 End: 10-20-[address] BENNETT BANDA Facility:[facility] Start: 10-19-2022 End: 10-20-2022 Encounter for general adult medical examination without abnormal findings DR BENNETT BANDA Facility:[facility] Start: 08-22-2022 End: 08-23-[address] BENNETT BANDA Facility:[facility] Start: 08-15-2022 End: 08-16-[address] BENNETT BANDA Facility:[facility] Start: 08-01-2022 End: 08-01-2022 Patient encounter procedure DARRELL SARAVIA [facility] Start: 06-27-2022 End: 06-28-[address] BENNETT BANDA Facility:[facility] Start: 04-04-2022 End: 04-04-[address] BENNETT BANDA Facility:[facility] Start: 03-13-2022 End: 03-14-[address] BENNETT BANDA Facility:[facility] Start: 02-14-2022 End: 03-01-[address] BENNETT BANDA Facility:[facility] Start: 10-19-2021 Adult health examination Yuriy banks Solo Other [employer] Other Start: 09-02-2019 Preoperative cardiovascular examination Bennett Banda Other [employer] Other Procedures Date Procedure Procedure Detail Performing Clinician Start: 07-24-2023 Radiologic examinati on knee 1/2 views Germania Sandoval NP Work Phone: Start: 03-31-2015 General examination of patient Bennett Solo Other Start: 02-08-2011 Colonoscopy DARRELL YARBROUGH Appendectomy DARRELL SARAVIA section Diomedes Coyle Cystoscopy DARRELL SARAVIA Hysterectomy DARRELL SARAVIA Knee region structur e (body structure) DARRELL SARAVIA Lithotripsy Diomedes YBARRA Repair of joint of r ight knee Diomedes YBARRA Screening for malign ant neoplasm of breast Bennett Banda Other Screening mammography Benjam in [facility] Other Total abdominal hysterectomy with bilateral salpingo-oophorectomy Diomedes YBARRA Plan of Treatment Date Care Activity Detail Author Start: 01-16-2024 End: 01-16-2024 Patient encounter procedure 01/16/2024 1:15 PM EDT Office Visit [facility] [address] [place] [id number] Xenia Shields MD [address] [place] [address] [facility] Start: 02-15-2023 Influenza vaccination Influenza Vacc ine (#1) [facility] Immunizations Immunization Date Immunization Notes Care Provider Fa cili 03-17-2023 influenza virus vaccine, unspecified formulation Diomedes YBARRA General Surgery [place] 04-17-2022 influenza virus vaccine, unspecified formulation Germania Sandoval NP Work Phone: [facility] 03-28-2022 SARS-CoV-2 (COVID-19 ) [id number] DARRELL SARAVIA [facility] Comment on above: Result Comment: 2022: [id number] 08-18-2021 tetanus and diphther ia toxoids, adsorbed, preservative free, for adult use (5 Lf of tetanus toxoid and 2 Lf of diphtheria toxoid) Bennett Banda Other [facility] 04-07-2021 SARS-CoV-2 (COVID-19 ) mRNA-1273 vaccine DARRELL MANJIT [facility] 07-13-2020 SARS-CoV-2 (COVID-19 ) mRNA-1273 vaccine DARRELL MANJIT [facility] 06-15-2020 SARS-CoV-2 (COVID-19 ) mRNA-1273 vaccine DARRELL MANJIT [facility] 03-17-2019 influenza virus vaccine, unspecified formulation DARRELL MANJIT [facility] 03-29-2018 influenza virus vaccine, unspecified formulation DARRELL MANJIT [facility] 07-01-2017 influenza virus vaccine, unspecified formulation DARRELL MANJIT [facility] 05-17-2016 influenza virus vaccine, unspecified formulation DARRELL MANJIT [facility] 04-07-2015 pneumococcal conjuga te vaccine, 13 valent ADRRELL MANJIT [facility] 03-22-2015 influenza virus vaccine, split virus (incl. purified surface antigen) Bennett Banda Other [employer] Other 03-22-2015 influenza virus vaccine, unspecified formulation [facility] 03-21-2015 pneumococcal polysaccharide vaccine, 23 valent DARRELL MANJIT [facility] 04-22-2013 tetanus and diphther ia toxoids, adsorbed, preservative free, for adult use (5 Lf of tetanus toxoid and 2 Lf of diphtheria toxoid) Bennett Banda Other [facility] NEGATED: Highlighted row has not occurred!03-05-2019 influenza virus vaccine, unspecified formulation DARRELL SARAVIA Endocrinology Comment on above: Result Comment: Flu vaccine not offered at Endocrinology. Will receive through employer in March Payers Date Payer Category Payer Unknown BCBS BCBS [id number] 2022-Present [phone] [address] [place] [address] [id number] 2019 Unknown [id number] 1959 Unknown [id number] 1945 Unknown [id number] 1945 Unknown [id number] 1945 Unknown [id number] [id number] 1945 Unknown [id number] [id number] 1945 Unknown [id number] [id number] 1945 Unknown [id number] [id number] 1945 Unknown [id number] [id number] 1945 Unknown [id number] [id number] 1947 Unknown [id number] [id number] 1947 Unknown [id number] [id number] 1947 Unknown [id number] [id number] 1945 Unknown [id number] [id number] 1945 Unknown [id number] Social History Date Type Detail Facility Start: 03-05-2019 End: 06-02-2024 Tobacco smoking status Never smoked tobacco (finding) [facility] Tobacco smoking status Never [facility] Start: 07-24-2023 Sex Assigned At Female F [facility] Start: 01-14-2023 Tobacco use and exposure Smokeless tobacco non-user [facility] Start: 07-24-2023 Alcohol intake Ex-drinker (finding) [facility] Start: 07-24-2023 History of Social function [facility] Start: 1945 Sex Assigned At Not on file [facility] Start: 1945 Sex Assigned At Female F [facility] Functional Status Date Assessment Result Facility 06-02-2024 Functional Status N/A [facility] 05-28-2023 Functional Status N/A [facility] 04-30-2023 Functional Status N/A [facility] 08-01-2022 Functional Status N/A [facility] Clinical Notes 03-13-2022 to 07-01-2024 Germania Sandoval NP - 07/24/2023 11:45 AM EST Note Date & Type Note Facility 07-01-2024 Evaluation + Plan note Diagnostic Tests PendingUrine Culture 07/01/24 [facility] 06-02-2024 Hospital Discharge instructions Patient Education 06/02/2024 13:08:52 Urinary Tract Infection, Adult Urinary Tract Infection, [...] Treatment for this condition includes: Antibiotic medicine. Pbek-ons-ezijxmn medicines to treat discomfort. Drinking enough water [...] Follow these instructions at home: Medicines Take gdaq-qgs-mzeupbw and prescription medicines only as told by [...] with your health care provider. Document Revised: 01/08/2021 Document Reviewed: 01/13/2021 Health Data Minder Patient Education 2023 Project 10K. Follow Up Care 05/28/2023 12:01:08 With:[facility] Address: When: Unknown Comments:Only if needed/new problems arise. No scheduled appointment indicated at this time. [facility] [place] 06-02-2024 Note Patient Education Obstetrics and Gynecology Urinary Tract [...] more likely to develop this condition if: ??? You have a urinary catheter that stays in place. ??? You are not able to control when you urinate or have a bowel movement (incontinence). ??? You are female and you: ? Use a spermicide or diaphragm for control. ? Have low estrogen levels. ? Are . ??? You have certain genes that increase your risk. ??? You are sexually active. ??? You take antibiotic medicines. ??? You have a condition that causes your flow of urine to slow down, such as: ? An enlarged prostate, if you are male. ? Blockage in your urethra. ? A kidney stone. ? A nerve condition that affects your bladder control (neurogenic bladder). ? Not getting enough to drink, or not urinating often. ??? You have certain medical conditions, such as: ? Diabetes. ? A weak disease-fighting system (immunesystem). ? Sickle cell disease. ? Gout. ? Spinal cord injury. What are the signs or symptoms? Symptoms of this condition include: ??? Needing to urinate right away (urgency). ??? Frequent urination. This may include small amounts of urine each time you urinate. ??? Pain or burning with urination. ??? Blood in the urine. ??? Urine that smells bad or unusual. ??? Trouble urinating. ??? Cloudy urine. ??? Vaginal discharge, if you are female. ??? Pain in the abdomen or the lower back. You may also have: ??? Vomiting or a decreased appetite. ??? Confusion. ??? Irritability or tiredness. ??? A fever or chills. ??? Diarrhea. The first symptom in older adults may be confusion. In some cases, they may not have any symptoms until the infection has worsened. How is this diagnosed? This condition is diagnosed based on your medical history and a physical exam. You may also have other tests, including: ??? Urine tests. ??? Blood tests. ??? Tests for STIs (sexually transmitted infections). If you have had more than one UTI, a cystoscopy or imaging studies may be done to determine the cause of the infections. How is this treated? Treatment for this condition includes: ??? Antibiotic medicine. ??? Siva-sxa-novzxby medicines to treat discomfort. ??? Drinking enough water to stay hydrated. If [...] medicines. Follow these instructions at home: Medicines ??? Take lpou-mqt-iqutswl and prescription medicines only as told by your health care provider. ??? If you were prescribed an antibiotic medicine, take it as told by your health care provider. Do not stop using the antibiotic even if you start to feel better. General instructions ??? Make sure you: ? Empty your bladder often and completely. Do not hold urine for long periods of time. ? Empty your bladder after sex. ? Wipe from front to back after urinating or having a bowel movement if you are female. Use each tissue only one time when you wipe. ??? Drink enough fluid to keep your urine pale yellow. ??? Keep all follow-up visits. This is important. Contact a health care provider if: ??? Your symptoms do not get better after 1?2 days. ??? Your symptoms go away and then return. Get help right away if: ??? You have severe pain in your back or your lower abdomen. ??? You have a fever or chills. ??? You have nausea or vomiting. Summary ??? A urinary tract infection (UTI) is an infection of any part of the urinary tract, which includes the kidneys, ureters, bladder, and urethra. ??? Most urinary tract infections are caused by bacteria in your genital area. ??? Treatment for this condition often includes antibiotic medicines. ??? If you were prescribed an antibiotic medicine, take it as told by your health care provider. Do not stop using the antibiotic even if you start to feel better. ??? Keep all follow-up visits. This is important. This information is not intended to replace advice given to you by your health care provider. Make sure you di (more content not included)... [facility] 07-24-2023 History of Present illness Narrative Subjective [...] tolerated, f/U prn documented in this encounter [facility] 05-28-2023 Hospital Discharge instructions Patient Education 05/28/2023 [...] Treatment for this condition includes: Antibiotic medicine. Cbql-rsr-vkovwbv medicines to treat discomfort. Drinking enough water [...] Follow these instructions at home: Medicines Take gkjc-bbu-zxaabbc and prescription medicines only as told by [...] provider. Document Revised: 01/13/2021 Document Reviewed: 01/13/2021 Health Data Minder Patient Education 2022 Project 10K. Follow Up Care 04/29/2023 08:25:06 With:MANJIT LUCAS, DARRELL Quinteros, URL Address: When:1 year [facility] [place] 04-18-2023 Evaluation note Encounter Date Diagnosis Assessment Notes Apr, Acute cystitis without hematuria (ICD-10 - N30.00) [employer] Other 10-24-2023 Evaluation note* Encounter Date Diagnosis [...] (ICD-10 - N30.00) Push fluids, avoid decongestants. Epping w/ different antibiotics (ADR Cipro) Call if [...] Screening for colon cancer (ICD-10 - Z12.11) [employer] Other 10-11-2023 Evaluation note* Encounter Date Diagnosis Assessment Notes Treatment Notes Treatment Clinical Notes Mar, Dysuria (ICD-10 - R30.0) [employer] Other 06-30-2023 Evaluation note* Encounter Date Diagnosis Assessment Notes Treatment Notes Treatment Clinical Notes Nov, Essential (primary) hypertension (ICD-10 - I10) [employer] Other 06-28-2023 Evaluation note* Encounter Date Diagnosis Assessment Notes Treatment Notes Treatment Clinical Notes Nov, Essential (primary) hypertension (ICD-10 - I10) Nov, Gastroesophageal ref lux disease with esophagitis without hemorrhage (ICD-10 - K21.00) [employer] Other 05-26-2023 Evaluation note* Encounter Date Diagnosis [...] w/ monthly SBE October, Colon cancer screeni ng (ICD-10 - Z12.11) Schedule colonoscopy at end of year. She denies change in appetite, weight or bowel function She denies heartburn, dysphagia, melena or hematochezia [employer] Other 02-15-2023 Hospital Discharge instructions Patient Education [...] Treatment for this condition includes: Antibiotic medicine. Sbjw-bui-ggojxye medicines to treat discomfort. Drinking enough water [...] Follow these instructions at home: Medicines Take rxdd-cco-qrcgqpp and prescription medicines only as told by [...] 03/13/2006 Document Revised: 05/21/2019 Document Reviewed: 12/11/2018 Health Data Minder Patient Education 2020 Project 10K. Follow Up Care 07/24/2022 09:06:13 With:MANJIT DARRELL LUCAS, URL Address: [address] [place] [address] Business (1) When: only if needed [facility] 09-27-2022 NotePROCEDURE: XR HIP RT 2 3V [...] authenticated by: TACOS FERNANDEZ Date: 2022-03-13 18:31[facility] [place] [facility] No data available for this section [facility] evaluation + Plan note Future Appointments Appointment Date:05/28/2023 11:20:00 AM Scheduled Provider:DARRELL SARAVIA PA-C Location:[facility] Appointment Type:URO Office Visit General Surgery [place] Evaluation + Plan note Future Appointments Appointment Date:06/02/2024 01:00:00 PM Scheduled Provider:DARRELL SARAVIA PA-C Location:[facility] Appointment Type:URO Office Visit [facility] evaluation noteEvadale Yek Mobile Other Evaluation noteNo InformationEvadale Yek Mobile Other Evaluation note* Diagnosis Status post total right knee replacement- Primary [facility] Diagnosis Onset Date Resolution Status Chronic venous insufficiency acute Essential (primary) hypertension acute GERD (gastroesophageal reflux disease) acute Hypercholesterolemia acute Osteopenia acute Wellness examination noneact [facility] Work Phone: History general Narrative - Reported* Type Description [...] LUMINAL IRREGULARITES Hospitalization History SEE SURGICAL HX [employer] Other History general Narrative - ReportedNoPremier Diagnostics Other History general Narrative - Reported* Type [...] pain, lower Medical History Benign paroxysmal positional le tigo, bilateral Medical History Frequency of micturition [...] Colonoscopy 05/2023 Hospitalization History SEE SURGICAL HX [employer] Other Hospital Discharge instructions No data available for this section General Surgery [place] [employer] note No data available for this section [facility] reason for referral (narrative)* Reason Referral for screeni ng colonoscopy Diagnosis 1 Colon cancer screeni ng (Z12.11) Referral Organization [facility] Bao crespo Referring Provider First Name Bennett Referring Provider Last Name Solo Referring Provider Specialty Internal Co dicviridiana Referred Organization [facility] Referred Provider Diomedes Ybarra Referred Address [address] [place], [place],[address] Referred Provider Specialty Surgery Referral Priority Routine General Notes Mrs. Mckenzie is myron ng referred for screening colonoscopy. She is overdue for screening w/ her last colonoscopy being in 2010. She did have a Cologuard completed several years ago but prefers to have repeat colonoscopy. She denies change in appetite, weight or bowel habits. She denies heartburn, dysphagia, melena or hematochezia. [employer] Other Summary Purpose Family History No Family [...] team informatio n (unrecognized section and content) Mobile Manager Relationship Specialty Start Date End Date Bennett Banda MD [address] [place] [address] PCP - General Internal Medicine 07/24/23 Team [...] section and content) DATE CREATED AUTHOR 10/26/2022 Hannah Infante pitbrian DATE CREATED AUTHOR AUTHOR'S ORGANIZ ATION 01/19/2024 [facility] DATE CREATED AUTHOR AUTHOR'S ORGANIZ ATION 07/04/2024 [facility] DATE CREATED AUTHOR AUTHOR'S ORGANIZ ATION 07/06/2024 [facility] DATE CREATED AUTHOR AUTHOR'S ORGANIZ ATION 07/07/2024 [facility] REASON FOR VISIT (unrecogniz ed section [...] BE BASED ON THE PRIMARY CLINICAL RECORDS. [facility]. provides no warranty or guarantee of the accuracy or completeness of information in this document.
== END 2024-08-28 06:56 | disposition home or self-care (01) ==
LOC: MAMMO 06:55
PROVIDERS: Family Provider Internal Medicine; PCP Internal Medicine; Visit Provider Internal Medicine
DX: Z12.31 Encounter for screening mammogram for malignant neoplasm of breast (principal)
CPT/HCPCS: 77063; 77067

== ENCOUNTER 2024-10-26 06:30 | Outpatient (OUT) | payer BC, SELFPAY ==
--- OUTSIDE RECORDS SUMMARY | 2024-10-26 06:34 | XMS_ITS | CCD ---
Author Organization [facility] CliniSynv Care Team Providers Care Director Of Culture Name Role Phone BENNETT BANDA Primary Care [...] source) Adhesive agent Drug allergy (disorder) [facility] (1 source) Aspirin Drug Allergy [facility] (1 source) natural latex rubber Drug allergy (disorder) [facility] (4 sources) patient allergy list reviewed by nurse or physicia Propensity to adverse reactions 12-04-201 3 Comment:Done [email or web address] Other (7 sources) Adhesive Tape; Translations: [Tape] Drug allergy Eruption of skin (disorder) [facility] [place] (6 sources) Ciprofloxacin; Translations: [ciprofloxacin] Drug Allergy 4 Floaters in visual field (finding) [facility] (1 source) Latex Allergy to substance [...] / neomycin 3.5 mg/ml / polymyxin b 72959 unt/ml otic suspension (6 sources) Aminoglycoside Antibacterial, Polymyxin-class Antibacterial, Corticosteroid Start: 09-18-2023 End: 11-08-2023 Neomycin-Polymyxin -Hc Discontinued 0 .ROUTE .COMPLEX September 18, 2023 9:57am November 08, 2023 1:56pm INSTILL 4 DROPS INTO THE AFFECTED EAR AT BEDTIME NEEDED Start: 09-18-2023 End: 09-18-2023 Vqqphkws-Rzuolkvin-Po Discon tinued 4 DROPS OTIC Daily at bedtime September 18, 2023 12:00am September 18, 2023 9:57am Start: 04-09-2023 neomycin-polym yxin-hydrocortisone (Cortisporin) 3.5-94201-6 otic suspension INSTILL 4 DROPS INTO THE AFFECTED EAR AT BEDTIME NEEDED 0 04/09/2023 Active Start: 04-09-2023 Neomycin-Polym yxin-HC 3.5-12272-2 4 drops into affected ear Otic q [...] Locations R1: This test was performed at: [facility], [address] [place] [address], [phone] , Normal [facility] Comment on above: Performed By: #### [id number] #### [facility] [address] [place] [id number] Urology Office/Clinic Noteon 06-02-2024 Urology Office/Clinic Note [...] E&M of Est. Patient Low 20-29 Min 53812 Urnls Dip Stick Auto w/o Microscopy POC 14381 2. History of nephrolithiasis (Z87.442: Personal history of urinary calculi) Neg imaging Aug 2022. No recent imaging. No recent pain/gross hematuria. Ordered: E&M of Est. Patient Low 20-29 Min 28888 Offered continued scheduled follow up with our clinic vs following up PRN. Pt prefers the latter. Follow-up With When Contact Information [facility] [place] [facility] Additional Instructions: Only if needed/new problems [...] virus vaccine, inactivated 03/2023 Recorded SARS-CoV-2 (COVID-19) [id number] 03/28/2022 Recorded 2022-07-27: [id number] SARS-CoV-2 (COVID-19) [id number] [...] Protein Urine Dipstick: Negative (06/02/24 12:13:00) Specific [place] Urine Dipstick: 1 (more content not included)... Normal [facility] Comment on above: Result Comment: Elec tronically Signed By: DARRELL SARAVIA PA-C\.surjit\Date and Time Signed: 06/02/24 16:07 EST Basophils Auto (Bld) [#/Vol] on 10-24-2023 Basophils (Bld) [#/Vol] 0.0 10 3/uL 0.0-0.1 [facility] Basophils/100 WBC Auto (Bld) on 10-24-2023 Basophils/100 WBC (Bld) 0.8 % 0.2-2.0 [facility] Cholesterol in LDL Calc [Mas s/Vol]on 10-24-2023 Cholesterol in LDL [Mass/Vol] 89.2 mg/dL [facility] Comment on above: <100 mg/dl [id number] 0-129 mg/dl NEAR OR ABOVE [id number] mg/dl BORDERLINE [id number] mg/dl HIGH>190 mg/dl VERY HIGH Cholesterol in VLDL Calc [Ma ss/Vol]on 10-24-2023 Cholesterol in VLDL [Mass/Vol] 16.8 mg/dL [facility] Eosinophils/100 WBC Auto (Bl d)on 10-24-2023 Eosinophils/100 WBC (Bld) 2.3 % 0.9-7.0 [facility] Erythrocyte distribution wid th Auto (RBC) [Ratio]on 10-24-2023 Erythrocyte distribution width (RBC) [Ratio] 12.0 % 11.0-15.0 [facility] Estimated glomerular filtrat ion rate (GFR) non- Americanon 10-24-2023 GFR/1.73 sq M.predicted among non-blacks MDRD (S/P/Bld) [Vol rate/Area] mL/min/{1.73_m2} >=60 [facility] Globulin Calc (S) [Mass/Vol] on 10-24-2023 Globulin (S) [Mass/Vol] 3.3 g/dL [facility] Glucose mean value [Mass/vol ume] in Blood Estimated from glycated hemoglobinon 10-24-2023 Average glucose Estimated from glycated hemoglobin (Bld) [Mass/Vol] 105 mg/dL [facility] Hematocrit Auto (Bld) [Volum e fraction]on 10-24-2023 Hematocrit (Bld) [Volume fraction] 37.1 % 36.0-48.0 [facility] Hemoglobin [Mass/volume] in Bloodon 10-24-2023 Hemoglobin (Bld) [Mass/Vol] 12.4 g/dL 12.0-16.0 [facility] Laboratory - Chemistry and C hemistry - challengeon 10-24-2023 Albumin [Mass/Vol] 3.7 g/dL 3.4-5.0 [facility] ALP [Catalytic activity/Vol] 88 U/L 46-116 [facility] ALT [Catalytic activity/Vol] 21 U/L 14-59 [facility] AST [Catalytic activity/Vol] 20 U/L 15-37 [facility] Bilirubin [Mass/Vol] 0.7 mg/dL 0.2-1.0 [facility] Calcium [Mass/Vol] 10.2 mg/dL 8.5-10.1 [facility] Chloride [Moles/Vol] 103 mmol/L 98-107 [facility] Cholesterol [Mass/Vol] 164 mg/dL <=200 [facility] Cholesterol in HDL [Mass/Vol] 58 mg/dL 40-60 [facility] Comment on above: > or =60 mg/dl - LOW CARDIOVASCULAR RISK<40 mg/dl - HIGH CARDIOVASCULAR RISK CO2 [Moles/Vol] 27.9 mmol/L 21.0-32.0 [facility] Creatinine [Mass/Vol] 0.90 mg/dL 0.55-1.02 [facility] GFR/1.73 sq M.predicted MDRD (S/P/Bld) [Vol rate/Area] mL/min/{1.73_m2} >=60 [facility] Glucose [Mass/Vol] 95 mg/dL 74-106 [facility] Potassium [Moles/Vol] 4.1 mmol/L 3.5-5.1 [facility] Protein [Mass/Vol] 7.0 g/dL 6.4-8.2 [facility] Sodium [Moles/Vol] 139 mmol/L 136-145 [facility] Triglyceride [Mass/Vol] 84 mg/dL <=150 [facility] TSH Qn 1.534 m[IU]/L 0.358-3.740 [facility] Urea nitrogen [Mass/Vol] 21.0 mg/dL 7.0-18.0 [facility] Urea nitrogen/Creatinine [Mass ratio] 23.3 mg/mg [facility] Laboratory - Hematology and Cell countson 10-24-2023 HbA1c (Bld) [Mass fraction] 5.3 % 4.5-6.2 [facility] Comment on above: ADA RECOMMENDED LIMI T 4.0 - 6.0ADA THERAPEUTIC TARGET < 7.0ACTION SUGGESTED> 7.0 Immature granulocytes/100 WBC (Bld) 0.2 % 0.0-0.5 [facility] Leukocytes [#/volume] correc maren for nucleated erythrocytes in Blood by Automated counon 10-24-2023 WBC corrected for nucl RBC Auto (Bld) [#/Vol] 5.2 10 3/uL 4.0-11.0 [facility] Lymphocytes Auto (Bld) [#/Vo l]on 10-24-2023 Lymphocytes (Bld) [#/Vol] 1.0 10 3/uL 1.2-3.8 [facility] Lymphocytes/100 WBC Auto (Bl d)on 10-24-2023 Lymphocytes/100 WBC (Bld) 19.5 % 20.5-60.0 [facility] MCH Auto (RBC) [Entitic mass ]on 10-24-2023 MCH (RBC) [Entitic mass] 29.5 pg 26.7-34.0 [facility] MCHC Auto (RBC) [Mass/Vol]on 10-24-2023 MCHC (RBC) [Mass/Vol] 33.4 g/dL 29.9-35.2 [facility] MCV Auto (RBC) [Entitic vol] on 10-24-2023 MCV (RBC) [Entitic vol] 88.1 fL 81.0-99.0 [facility] Monocytes Auto (Bld) [#/Vol] on 10-24-2023 Monocytes (Bld) [#/Vol] 0.6 10 3/uL 0.3-0.8 [facility] Monocytes/100 WBC Auto (Bld) on 10-24-2023 Monocytes/100 WBC (Bld) 10.7 % 1.7-12.0 [facility] Neutrophils Auto (Bld) [#/Vo l]on 10-24-2023 Neutrophils (Bld) [#/Vol] 3.5 10 3/uL 1.4-6.5 [facility] Neutrophils/100 WBC Auto (Bl d)on 10-24-2023 Neutrophils/100 WBC (Bld) 66.5 % 43.0-75.0 [facility] No Panel Informationon 10-23 Eosinophils # (Auto) 0.1 10 3/uL 0.0-0.7 [facility] Immature Granulocyte # (Auto) 0.01 10 3/uL 0.00-0.03 [facility] Platelet mean volume Auto (B ld) [Entitic vol]on 10-24-2023 Platelet mean volume (Bld) [Entitic vol] 10.8 fL 9.5-13.5 [facility] Platelets Auto (Bld) [#/Vol] on 10-24-2023 Platelets (Bld) [#/Vol] 234 10 3/uL 150-450 [facility] RBC Auto (Bld) [#/Vol]on RBC (Bld) [#/Vol] 4.21 10 6/uL 4.20-5.40 [facility] Serum or plasma albumin/glob ulin mass ratioon 10-24-2023 Albumin/Globulin [Mass ratio] 1.1 {ratio} [facility] Serum or plasma anion gap de terminationon 10-24-2023 Anion gap [Moles/Vol] 12.2 mmol/L [facility] Serum or plasma total choles terol/high density lipoprotein (HDL) cholesterol mass karly 10-24-2023 Cholesterol.total/C holesterol in HDL [Mass ratio] 2.8 {ratio} [facility] Comment on above: 3.3 - 4.4 LOW [...] right total knee replacement Vasu Yun D.O. [facility] XR Knee - right 1 or 2 Views Ordered By: Edilson Yun on 07-25-2023 [facility] [employer] Work Phone: XR Knee - right 1 or 2 Views on 07-24-2023 Radiology Study observation (narrative) [facility] UA RANDOM W/MICROSCOPICon Clarity (U) CLEAR CLEAR [email or web address] Other Color (U) YELLOW YELLOW [email or web address] Other Ketones Ql (U) Negative NEGATIVE mg/dL [email or web address] Other Leukocyte esterase Test strip Ql (U) TRACE Abnormal NEGATIVE [email or web address] Other pH (U) 6.0 [pH] 5.0-9.0 [email or web address] Other UA RANDOM W/MICROSCOPIC 2-5 #/HPF Abnormal 0-2 #/HPF [email or web address] Other UA RANDOM W/MICROSCOPIC see note [email or web address] Other UA RANDOM W/MICROSCOPIC 1.020 1.005-1.025 [email or web address] Other UA RANDOM W/MICROSCOPIC TRACE mg/dL NEG/TRACE mg/dL [email or web address] Other UA RANDOM W/MICROSCOPIC Negative NEGATIVE [email or web address] Other UA RANDOM W/MICROSCOPIC TRACE-I NEGATIVE [email or web address] Other UA RANDOM W/MICROSCOPIC 0.2 EU/dL 0.2-1.0 EU/dL [email or web address] Other UA RANDOM W/MICROSCOPIC TRACE #/HPF Abnormal NONE SEEN #/HPF [email or web address] Other UA RANDOM W/MICROSCOPIC TRACE Abnormal NONE SEEN [email or web address] Other UA RANDOM W/MICROSCOPIC FEW #/LPF Abnormal NONE/RARE #/LPF [email or web address] Other UA RANDOM W/MICROSCOPIC None Seen #/HPF None Seen #/HPF [email or web address] Other UA RANDOM W/MICROSCOPIC NONE SEEN #/LPF NONE SEEN #/LPF [email or web address] Other UA RANDOM W/MICROSCOPIC ALREADY ORDERED [email or web address] Other CBC AUTO DIFFon 10-19-2022 BASO # 0.0 103/ul Normal 0.0-0.1 [facility] Comment on above: Performed By: #### U RCX #### [facility] [address] [address] [address] Sheryl Zaragoza Basophils/100 WBC (Bld) 0.8 % Normal 0.2-2.0 [facility] Comment on above: Performed By: #### U RCX #### [facility] [address] [address] [address] Sheryl Zaragoza EO # 0.1 103/ul Normal 0.0-0.7 [facility] Comment on above: Performed By: #### U RCX #### [facility] [address] [place] [address] Dr. Sheryl Zaragoza Eosinophils/100 WBC (Bld) 2.5 % Normal 0.9-7.0 [facility] Comment on above: Performed By: #### U RCX #### [facility] [address] [place] [address] Dr. Sheryl Zaragoza Erythrocyte distribution width (RBC) [Ratio] 11.9 % Normal 11.0-15.0 [facility] Comment on above: Performed By: #### U RCX #### [facility] [address] [place] [address] Dr. Sheryl Zaragoza Hematocrit (Bld) [Volume fraction] 37.5 % Normal 36.0-48.0 [facility] Comment on above: Performed By: #### U RCX #### [facility] [address] [address] [address] Sheryl Zaragoza Hemoglobin (Bld) [Mass/Vol] 12.8 g/dL Normal 12.0-16.0 [facility] Comment on above: Performed By: #### U RCX #### [facility] [address] [place] [address] Dr. Sheryl Zaragoza IG # 0.01 10e3/ul Normal 0.00-0.03 [facility] Comment on above: Performed By: #### U RCX #### [facility] [address] [place] [address] Dr. Sheryl Zaragoza IG % 0.3 % Normal 0.0-0.5 [facility] Comment on above: Performed By: #### U RCX #### [facility] [address] [address] [address] Sheryl Zaragoza LYMPH # 0.8 103/ul Critically low 1.2-3.8 [facility] Comment on above: Performed By: #### U RCX #### [facility] [address] [place] [address] Dr. Sheryl Zaragoza Lymphocytes/100 WBC (Bld) 21.1 % Normal 20.5-60.0 [facility] Comment on above: Performed By: #### U RCX #### [facility] [address] [place] [address] Dr. Sheryl Zaragoza MANUAL DIFF REQ NO Normal [facility] Comment on above: Performed By: #### U RCX #### [facility] [address] [place] [address] Dr. Sheryl Zaragoza MCH (RBC) [Entitic mass] 30.1 pg Normal 26.7-34.0 [facility] Comment on above: Performed By: #### U RCX #### [facility] [address] [place] [address] Dr. Sheryl Zaragoza MCHC (RBC) [Mass/Vol] 34.1 g/dL Normal 29.9-35.2 [facility] Comment on above: Performed By: #### U RCX #### [facility] [address] [place] [address] Dr. Sheryl Zaragoza MCV (RBC) [Entitic vol] 88.2 fL Normal 81.0-99.0 [facility] Comment on above: Performed By: #### U RCX #### [facility] [address] [place] [address] Dr. Sheryl Zargaoza MONO # 0.4 103/ul Normal 0.3-0.8 [facility] Comment on above: Performed By: #### U RCX #### [facility] [address] [place] [address] Dr. Sheryl Zaragoza Monocytes/100 WBC (Bld) 10.8 % Normal 1.7-12.0 [facility] Comment on above: Performed By: #### U RCX #### [facility] [address] [place] [address] Dr. Sheryl Zaragoza NEUT # 2.6 103/ul Normal 1.4-6.5 [facility] Comment on above: Performed By: #### U RCX #### [facility] [address] [place] [address] Dr. Sheryl Zaragoza Neutrophils/100 WBC (Bld) 64.5 % Normal 43.0-75.0 [facility] Comment on above: Performed By: #### U RCX #### [facility] [address] [place] [address] Dr. Sheryl Zaragoza Platelet mean volume (Bld) [Entitic vol] 10.5 fL Normal 9.5-13.5 [facility] Comment on above: Performed By: #### U RCX #### [facility] [address] [place] [address] Dr. Sheryl Zaragoza PLT 229 103/ul Normal 150-450 [facility] Comment on above: Performed By: #### U RCX #### [facility] [address] [place] [address] Dr. Sheryl Zaragoza RBC 4.25 106/ul Normal 4.20-5.40 [facility] Comment on above: Performed By: #### U RCX #### [facility] [address] [place] [address] Dr. Sheryl Zaragoza WBC 4.0 103/ul Normal 4.0-11.0 [facility] Comment on above: Performed By: #### U RCX #### [facility] [address] [place] [address] Dr. Sheryl Zaragoza GLYCOHEMOGLOBIN A1Con 2022 ADA RECOMMENDATION SEE BELOW Normal [facility] Comment on above: Result Comment: ADA RECOMMENDED LIMIT 4.0 - 6.0 ADA THERAPEUTIC TARGET < 7.0 ACTION SUGGESTED > 7.0 Performed By: #### A 1C #### [facility] [address] [place] [address] Dr. Sheryl Zaragoza Glucose [Mass/Vol] 103 mg/dL Normal [facility] Comment on above: Performed By: #### A 1C #### [facility] [address] [address] [address] Sheryl Zaragoza HbA1c (Bld) [Mass fraction] 5.2 % Normal 4.5-6.2 [facility] Comment on above: Performed By: #### A 1C #### [facility] [address] [place] [address] Dr. Sheryl Zaragoza LIPID PROFILEon 10-19-2022 CHOL-HDL RATIO NORM SEE BELOW Normal [facility] Comment on above: Result Comment: 3.3 - 4.4 LOW RISK 4.4 - 7.1 AVERAGE RISK 7.1 - 11.0 MODERATE RISK >11.0 HIGH RISK Performed By: #### C MP, LIPID, TSH #### [facility] [address] [place] [address] Dr. Sheryl Zaragoza Cholesterol [Mass/Vol] 185 mg/dL Normal <=200 [facility] Comment on above: Performed By: #### C MP, LIPID, TSH #### [facility] [address] [place] [address] Dr. Sheryl Zaragoza Cholesterol in HDL [Mass/Vol] 63 mg/dL Critically high 40-60 [facility] Comment on above: Performed By: #### C MP, LIPID, TSH #### [facility] [address] [address] [address] Sheryl Zaragoza Cholesterol in LDL [Mass/Vol] 103.8 mg/dL Normal [facility] Comment on above: Performed By: #### C MP, LIPID, TSH #### [facility] [address] [place] [address] Dr. Sheryl Zaragoza Cholesterol.total/C holesterol in HDL [Mass ratio] 2.9 {ratio} Normal [facility] Comment on above: Performed By: #### C MP, LIPID, TSH #### [facility] [address] [address] [address] Sheryl Zaragoza HDL NORMAL > or = 60 mg/dl - LO W CARDIOVASCULAR RISK <40 mg/dl - HIGH CARDIOVASCULAR RISK Normal [facility] Comment on above: Performed By: #### C MP, LIPID, TSH #### [facility] [address] [address] [address] Sheryl Zaragoza LDL CALC NORMAL SEE BELOW Normal [facility] Comment on above: Result Comment: <100 mg/dl OPTIMAL 100 - 129 mg/dl NEAR OR ABOVE OPTIMAL 130 - 159 mg/dl BORDERLINE HIGH 160 - 189 mg/dl HIGH >190 mg/dl VERY HIGH Performed By: #### C MP, LIPID, TSH #### [facility] [address] [address] [address] Sheryl Zaragoza Triglyceride [Mass/Vol] 91 mg/dL Normal <=150 [facility] Comment on above: Performed By: #### C MP, LIPID, TSH #### [facility] [address] [address] [address] Sheryl Zaragoza VLDL CALC 18.2 mg/dL Normal [facility] Comment on above: Performed By: #### C MP, LIPID, TSH #### [facility] [address] [address] [address] Sheryl Zaragoza PROF 14(COMP METB)on 023 Albumin [Mass/Vol] 3.7 g/dL Normal 3.4-5.0 [facility] Comment on above: Performed By: #### C MP, LIPID, TSH #### [facility] [address] [address] [address] Sheryl Zaragoza Albumin/Globulin [Mass ratio] 1.1 {ratio} Normal [facility] Comment on above: Performed By: #### C MP, LIPID, TSH #### [facility] [address] [address] [address] Sheryl Zaragoza ALP [Catalytic activity/Vol] 81 U/L Normal 46-116 [facility] Comment on above: Performed By: #### C MP, LIPID, TSH #### [facility] [address] [address] [address] Sheryl Zaragoza ALT [Catalytic activity/Vol] 24 U/L Normal 14-59 [facility] Comment on above: Performed By: #### C MP, LIPID, TSH #### [facility] [address] [address] [address] Sheryl Zaragoza Anion gap [Moles/Vol] 8.2 mmol/L Normal [facility] Comment on above: Performed By: #### C MP, LIPID, TSH #### [facility] [address] [address] [address] Sheryl Zaragoza AST [Catalytic activity/Vol] 17 U/L Normal 15-37 [facility] Comment on above: Performed By: #### C MP, LIPID, TSH #### [facility] [address] [place] [address] Dr. Sheryl Zaragoza Bilirubin [Mass/Vol] 0.5 mg/dL Normal 0.2-1.0 [facility] Comment on above: Performed By: #### C MP, LIPID, TSH #### [facility] [address] [address] [address] Sehryl Zaragoza Calcium [Mass/Vol] 9.9 mg/dL Normal 8.5-10.1 [facility] Comment on above: Performed By: #### C MP, LIPID, TSH #### [facility] [address] [place] [address] Dr. Sheryl Zaragoza Chloride [Moles/Vol] 102 mmol/L Normal 98-107 [facility] Comment on above: Performed By: #### C MP, LIPID, TSH #### [facility] [address] [address] [address] Sheryl Zaragoza CO2 [Moles/Vol] 30.2 mmol/L Normal 21.0-32.0 [facility] Comment on above: Performed By: #### C MP, LIPID, TSH #### [facility] [address] [address] [address] Sheryl Zaragoza Creatinine [Mass/Vol] 0.88 mg/dL Normal 0.55-1.02 [facility] Comment on above: Performed By: #### C MP, LIPID, TSH #### [facility] [address] [address] [address] Sheryl Zaragoza EGFR-AF UGANDAN >60 Normal >=60 [facility] Comment on above: Performed By: #### C MP, LIPID, TSH #### [facility] [address] [address] [address] Sheryl Zaragoza EGFR-NON AF UGANDAN >60 Normal >=60 [facility] Comment on above: Performed By: #### C MP, LIPID, TSH #### [facility] [address] [address] [address] Sheryl Zaragoza Globulin (S) [Mass/Vol] 3.4 g/dL Normal [facility] Comment on above: Performed By: #### C MP, LIPID, TSH #### [facility] [address] [address] [address] Sheryl Zaragoza Glucose [Mass/Vol] 97 mg/dL Normal 74-106 [facility] Comment on above: Performed By: #### C MP, LIPID, TSH #### [facility] [address] [address] [address] Sheryl Zaragoza Potassium [Moles/Vol] 4.4 mmol/L Normal 3.5-5.1 [facility] Comment on above: Performed By: #### C MP, LIPID, TSH #### [facility] [address] [address] [address] Sheryl Zaragoza Protein [Mass/Vol] 7.1 g/dL Normal 6.4-8.2 [facility] Comment on above: Performed By: #### C MP, LIPID, TSH #### [facility] [address] [address] [address] Sheryl Zaragoza Sodium [Moles/Vol] 136 mmol/L Normal 136-145 [facility] Comment on above: Performed By: #### C MP, LIPID, TSH #### [facility] [address] [address] [address] Sheryl Zaragoza Urea nitrogen [Mass/Vol] 14.0 mg/dL Normal 7.0-18.0 [facility] Comment on above: Performed By: #### C MP, LIPID, TSH #### [facility] [address] [place], [place] [address] Dr. Sheryl Zaragoza Urea nitrogen/Creatinine [Mass ratio] 15.9 mg/mg Normal [facility] Comment on above: Performed By: #### C MP, LIPID, TSH #### [facility] [address] [place], [place] [address] Dr. Sheryl Zaragoza TSHon 10-19-2022 TSH 1.288 uIU/mL Normal 0.358-3.740 [facility] Comment on above: Performed By: #### C MP, LIPID, TSH #### [facility] [address] [place], [place] [address] Dr. Sheryl Zaragoza MG MAMM SCREEN 3D JOSE CADon 08-22-2022 MG MAMM SCREEN 3D JOSE CAD Patient: ZAKIYA MCKENZIE Exam Date: 08/22/2022 : 1945 Gender:F Ordering : DR BENNETT BANDA D.O. Admission #: [id number] Family : Order #: [id number] CLICK HERE TO VIEW EXAM RADIOLOGY REPORT [...] No Treatments None Family Cancers None LOCATION: [facility] BREAST COMPOSITION: Scattered areas fibroglandular density. [...] M.D. on 08/22/2022 at 17:08 Normal The [facility] US KIDNEYSon 08-15-2022 US KIDNEYS [...] TACOS FERNANDEZ Date: 2022-08-15 08:35 Normal [facility] XR KUB 1 VIEWon 08-15-2022 [...] TACOS FERNANDEZ Date: 2022-08-15 09:25 Normal [facility] CULTURE URINEon 06-27-2022 CULTURE URINE Culture Observations : NO GROWTH. Normal The [facility] Comment on above: Performed By: #### U RCX #### [facility] [address] [place] [address] Dr. Sheryl Zaragoza UA RANDOM W/MICROSCOPICon BACTERIA NONE SEEN Normal NONE SEEN The [facility] Comment on above: Performed By: #### U RCX #### [facility] [address] [place] [address] Dr. Sheryl Zaragoza Bilirubin Ql (U) Negative Normal NEGATIVE The [facility] Comment on above: Performed By: #### U RCX #### [facility] [address] [place] [address] Dr. Sheryl Zaragoza CAST SEEN Abnormal NONE SEEN [facility] Comment on above: Performed By: #### U RCX #### [facility] [address] [place] [address] Dr. Sheryl Zaragoza Clarity (U) CLEAR Normal CLEAR The [facility] Comment on above: Performed By: #### U RCX #### [facility] [address] [place] [address] Dr. Sheryl Zaragoza Color (U) YELLOW Normal YELLOW The [facility] Comment on above: Performed By: #### U RCX #### [facility] [address] [place] [address] Dr. Sheryl Zaragoza Crystals LM Nom (Urine sed) NONE SEEN Normal NONE SEEN [facility] Comment on above: Performed By: #### U RCX #### [facility] [address] [place] [address] Dr. Sheryl Zaragoza Epithelial cells LM Ql (Urine sed) RARE Normal NONE SEEN /RARE The [facility] Comment on above: Performed By: #### U RCX #### [facility] [address] [place] [address] Dr. Sheryl Zaragoza Glucose Ql (U) Negative Normal NEGATIVE The [facility] Comment on above: Performed By: #### U RCX #### [facility] [address] [place] [address] Dr. Sheryl Zaragoza Hemoglobin Ql (U) Negative Normal NEGATIVE The [facility] Comment on above: Performed By: #### U RCX #### [facility] [address] [place] [address] Dr. Sheryl Zaragoza Ketones Ql (U) TRACE Abnormal NEGATIVE The [facility] Comment on above: Performed By: #### U RCX #### [facility] [address] [place] [address] Dr. Sheryl Zaragoza LEUKOCYTES Negative Normal NEGATIVE The [facility] Comment on above: Performed By: #### U RCX #### [facility] [address] [place] [address] Dr. Sheryl Zaragoza MUCOUS NONE SEEN Normal NONE SEEN [facility] Comment on above: Performed By: #### U RCX #### [facility] [address] [place] [address] Dr. Sheryl Zaragoza Nitrite Ql (U) Negative Normal NEGATIVE [facility] Comment on above: Performed By: #### U RCX #### [facility] [address] [place] [address] Dr. Sheryl Zaragoza pH (U) 6.5 [pH] Normal 5-9 The [facility] Comment on above: Performed By: #### U RCX #### [facility] [address] [place] [address] Dr. Sheryl Zaragoza RBC 0-2 Normal 0-2 [facility] Comment on above: Performed By: #### U RCX #### [facility] [address] [place] [address] Dr. Sheryl Zaragoza SPEC GRAVITY 1.010 Normal 1.005-<=1.02 5 [facility] Comment on above: Performed By: #### U RCX #### [facility] [address] [place] [address] Dr. Sheryl Zaragoza UA PROTEIN Negative Normal NEGATIVE/ TRACE The [facility] Comment on above: Performed By: #### U RCX #### [facility] [address] [place] [address] Dr. Sheryl Zaragoza Urobilinogen Qn (U) 0.2 {Sena'U}/dL Normal 0.2 - 1. 0 [facility] Comment on above: Performed By: #### U RCX #### [facility] [address] [place] [address] Dr. Sheryl Zaragoza WBC 0-2 Abnormal NONE SEEN [facility] Comment on above: Performed By: #### U RCX #### [facility] [address] [place] [address] Dr. Sheryl Zaragoza CULTURE URINEon 04-04-2022 CULTURE URINE Culture Observations : LIGHT GROWTH OF MIXED GENITAL JUDY. NO POTENTIAL PATHOGENS SEEN. Normal The [facility] Comment on above: Performed By: #### U RCX #### [facility] [address] [place] [address] [address] Sheryl Zaragoza UA RANDOM W/MICROSCOPICon BACTERIA NONE SEEN Normal NONE SEEN The [facility] Comment on above: Performed By: #### U AMIC #### [facility] [address] [place] [address] Dr. Sheryl Zaragoza Bilirubin Ql (U) Negative Normal NEGATIVE The [facility] Comment on above: Performed By: #### U AMIC #### [facility] [address] [place] [address] Dr. Sheryl Zaragoza CAST NONE SEEN Normal NONE SEEN The [facility] Comment on above: Performed By: #### U AMIC #### [facility] [address] [place] [address] Dr. Sheryl Zaragoza Clarity (U) CLEAR Normal CLEAR The [facility] Comment on above: Performed By: #### U AMIC #### [facility] [address] [place] [address] Dr. Sheryl Zaragoza Color (U) LT. YELLOW Normal YELLOW The [facility] Comment on above: Performed By: #### U AMIC #### [facility] [address] [address] [address] Sheryl Zaragoza Crystals LM Nom (Urine sed) NONE SEEN Normal NONE SEEN The [facility] Comment on above: Performed By: #### U AMIC #### [facility] [address] [place] [address] Dr. Sheryl Zaragoza Epithelial cells LM Ql (Urine sed) FEW Abnormal NONE SEEN /RARE The [facility] Comment on above: Performed By: #### U AMIC #### [facility] [address] [place] [address] Dr. Sheryl Zaragoza Glucose Ql (U) Negative Normal NEGATIVE The [facility] Comment on above: Performed By: #### U AMIC #### [facility] [address] [place] [address] Dr. Sheryl Zaragoza Hemoglobin Ql (U) Negative Normal NEGATIVE [facility] Comment on above: Performed By: #### U AMIC #### [facility] [address] [place] [address] Dr. Sheryl Zaragoza Ketones Ql (U) Negative Normal NEGATIVE The [facility] Comment on above: Performed By: #### U AMIC #### [facility] [address] [place] [address] [address] Sheryl Zaragoza LEUKOCYTES Negative Normal NEGATIVE The [facility] Comment on above: Performed By: #### U AMIC #### [facility] [address] [address] [address] Sheryl Zaragoza MUCOUS NONE SEEN Normal NONE SEEN [facility] Comment on above: Performed By: #### U AMIC #### [facility] [address] [place] [address] Dr. Sheryl Zaragoza Nitrite Ql (U) Negative Normal NEGATIVE The [facility] Comment on above: Performed By: #### U AMIC #### [facility] [address] [place] [address] Dr. Sheryl Zaragoza pH (U) 6.0 [pH] Normal 5-9 [facility] Comment on above: Performed By: #### U AMIC #### [facility] [address] [place] [address] Dr. Sheryl Zaragoza RBC NONE SEEN Abnormal 0-2 The [facility] Comment on above: Performed By: #### U AMIC #### [facility] [address] [place] [address] Dr. Sheryl Zaragoza SPEC GRAVITY 1.010 Normal 1.005-<=1.02 5 [facility] Comment on above: Performed By: #### U AMIC #### [facility] [address] [place] [address] Dr. Sheryl Zaragoza UA PROTEIN Negative Normal NEGATIVE/ TRACE The [facility] Comment on above: Performed By: #### U AMIC #### [facility] [address] [place] [address] Dr. Sheryl Zaragoza Urobilinogen Qn (U) 0.2 {Sena'U}/dL Normal 0.2 - 1. 0 [facility] Comment on above: Performed By: #### U AMIC #### [facility] [address] [address] [address] Sheryl Zaragoza WBC 0-2 Abnormal NONE SEEN The [facility] Comment on above: Performed By: #### U AMIC #### [facility] [address] [id number] Sheryl Zaragoza XR LSPINE 2_3 VIEWSon [...] TACOS FERNANDEZ Date: 2022-03-13 18:30 Normal [facility] Vital Signs Date Time Vital Sign Value Performing Clinician Facility 06-02-2024 12:06-0500 Blood Pressure Location DARRELL SARAVIA [facility] 06-02-2024 12:06-0500 Diastolic blood pressure 68 mm[Hg] DARRELL SARAVIA [facility] 06-02-2024 12:06-0500 Heart rate 68 /min DARRELL SARAVIA [facility] 06-02-2024 12:06-0500 Systolic blood pressure 122 mm[Hg] DARRELL SARAVIA [facility] 11-13-2023 11:37-0400 Body height 160.02 cm [facility] 11-13-2023 11:37-0400 Body mass index (BMI) [Ratio] 29.2 kg/m2 [facility] 11-13-2023 11:37-0400 Body weight 75.06 kg [facility] 11-13-2023 11:37-0400 Diastolic blood pressure 67 mm[Hg] [facility] 11-13-2023 11:37-0400 Heart rate 53 /min [facility] 11-13-2023 11:37-0400 Respiratory rate 12 /min [facility] 11-13-2023 11:37-0400 Systolic blood pressure 130 mm[Hg] [facility] 05-28-2023 11:21-0500 Blood Pressure Location DARRELL MANJIT [facility] 05-28-2023 11:21-0500 Diastolic blood pressure 79 mm[Hg] DARRELL MANJIT [facility] 05-28-2023 11:21-0500 Heart rate 80 /min DARRELL MANJIT [facility] 05-28-2023 11:21-0500 Respiratory rate 16 /min DARRELL MANJIT [facility] 05-28-2023 11:21-0500 Systolic blood pressure 128 mm[Hg] DARRELL MANJIT [facility] 04-30-2023 13:48-0500 Blood Pressure Location Diomedes NILL [facility] 04-30-2023 13:48-0500 Diastolic blood pressure 72 mm[Hg] Diomedes NILL [facility] [place] [place] [place] [facility] 04-30-2023 13:48-0500 Heart rate 72 /min Diomedes NILL [facility] 04-30-2023 13:48-0500 Respiratory rate 16 /min Diomedes NILL [facility] [place] [place] [place] [facility] 04-30-2023 13:48-0500 Systolic blood pressure 138 mm[Hg] Diomedes YBARRA [facility] [place] 04-09-2023 11:30-0400 Body height 160.02 cm Bennett Ball Other [email or web address] Other 04-09-2023 11:30-0400 Body mass index (BMI) [Ratio] 30.18 kg/m2 Bennett Ball Other [email or web address] Other 04-09-2023 11:30-0400 Body weight 77.29 kg Bennett Ball Other [email or web address] Other 04-09-2023 11:30-0400 Diastolic blood pressure 60 mm[Hg] Bennett Ball Other [email or web address] Other 04-09-2023 11:30-0400 Respiratory rate 12 /min Bennett Ball Other [email or web address] Other 04-09-2023 11:30-0400 Systolic blood pressure 120 mm[Hg] Bennett Ball Other [email or web address] Other 11-09-2022 10:30-0400 Body height 160.02 cm Bennett Ball Other [email or web address] Other 11-09-2022 10:30-0400 Body mass index (BMI) [Ratio] 29.51 kg/m2 Bennett Ball Other [email or web address] Other 11-09-2022 10:30-0400 Body weight 75.57 kg Bennett Ball Other [email or web address] Other 11-09-2022 10:30-0400 Diastolic blood pressure 73 mm[Hg] Bennett Ball Other [email or web address] Other 11-09-2022 10:30-0400 Respiratory rate 16 /min Bennett Banda Other [facility] [employer] Other 11-09-2022 10:30-0400 Systolic blood pressure 147 mm[Hg] Bennett Banda Other [facility] [employer] Other 08-01-2022 09:49-0500 Blood Pressure Location DARRELLEDNA SARAVIA [facility] 08-01-2022 09:49-0500 Diastolic blood pressure 62 mm[Hg] DARRELL SARAVIA [facility] 08-01-2022 09:49-0500 Heart rate 52 /min DARRELL MANJIT [facility] 08-01-2022 09:49-0500 Systolic blood pressure 133 mm[Hg] DARRELLEDNA SARAVIA [facility] Encounters Encounter Date Encounter Type Care Provider Facility Start: 07-01-2024 End: 07-01-2024 Lab Drop off DARRELL SARAVIA [facility] Start: 07-01-2024 End: 07-01-2024 ambulatory DARRELL ASRAVIA Facility:[facility] Start: 07-01-2024 End: 07-01-2024 Patient encounter procedure DARRELL PORTILLORY [facility] Start: 06-02-2024 End: 06-02-2024 ambulatory DARRELL SARAVIA Facility:[facility] Start: 06-02-2024 End: 06-02-2024 Patient encounter procedure DARRELL PORTILLORY [facility] Start: 01-16-2024 End: 01-16-2024 ambulatory XENIA SHIELDS Not Available Start: 11-13-2023 End: 11-13-2023 ambulatory [facility] Work Phone: Start: 11-13-2023 End: 11-13-2023 Encounter for general adult medical examination without abnormal findings [facility] Start: 11-13-2023 End: 11-13-2023 Patient encounter procedure [facility] Work Phone: Start: 10-24-2023 Non-patient / Non-visit [facility] Work Phone: Start: 09-18-2023 Non-patient / Non-visit [facility] Work Phone: Start: 07-24-2023 End: 07-24-2023 Office outpatient visit 10 minutes Germania Sandoval [employer] Work Phone: [facility] Comment on above: Status post total ri ght knee replacement (Primary Dx) Start: 07-24-2023 End: 07-24-2023 ambulatory GERMANIA SANDOVAL Not Available Start: 05-30-2023 End: 05-30-2023 ambulatory Bennett Banda Other [facility] [employer] Other Start: 05-30-2023 Telephone encounter Bennett Banda [facility] Start: 05-28-2023 End: 05-28-2023 Patient encounter procedure DARRELL SARAVIA [facility] Start: 05-06-2023 End: 05-06-2023 Patient encounter procedure DARRELL SARAVIA [facility] Start: 04-30-2023 End: 04-30-2023 Patient encounter procedure Diomedes YBARRA [facility] Start: 04-18-2023 End: 04-18-2023 ambulatory Bennett Ball Other [email or web address] Other Start: 04-18-2023 Telephone encounter Bennett Ball [facility] Start: 04-09-2023 End: 04-09-2023 ambulatory Bennett Ball Other [email or web address] Other Start: 04-09-2023 Office outpatient vi sit 25 minutes Bennett Ball [facility] Start: 04-01-2023 End: 04-01-2023 ambulatory Bennett Ball Other [email or web address] Other Start: 04-01-2023 Telephone encounter Bennett Ball [facility] Start: 03-27-2023 End: 03-27-2023 ambulatory Bennett Ball Other [email or web address] Other Start: 03-27-2023 Telephone encounter Bennett Ball [facility] Start: 12-14-2022 End: 12-14-2022 ambulatory Bennett Ball Other [email or web address] Other Start: 12-14-2022 Telephone encounter Bennett Ball [facility] Start: 12-13-2022 End: 12-13-2022 ambulatory Bennett Ball Other [email or web address] Other Start: 12-13-2022 Telephone encounter Bennett Ball [facility] Start: 12-12-2022 End: 12-12-2022 ambulatory Bennett Ball Other [email or web address] Other Start: 12-12-2022 Telephone encounter Bennett Ball [facility] Start: 11-09-2022 End: 11-09-2022 ambulatory Bennett Ball Other [email or web address] Other Start: 11-09-2022 Encounter for genera l adult medical examination without abnormal findings Bennett Banda [facility] Start: 11-09-2022 Periodic preventive med est patient 65yrs& older Bennett Banda [facility] Start: 10-25-2022 Encounter for genera l adult medical examination without abnormal findings DR BENNETT BANDA [facility] Start: 10-19-2022 End: 10-20-[address] BENNETT BANDA Facility:[facility] Start: 10-19-2022 End: 10-20-2022 Encounter for general adult medical examination without abnormal findings DR BENNETT BANDA Facility:[facility] Start: 08-22-2022 End: 08-23-[address] BENNETT BANDA Facility:[facility] Start: 08-15-2022 End: 08-16-[address] BENNETT BANDA Facility:[facility] Start: 08-01-2022 End: 08-01-2022 Patient encounter procedure DARRELL SARAVIA [facility] Start: 06-27-2022 End: 06-28-[address] BENNETT BANDA Facility:[facility] Start: 04-04-2022 End: 04-04-[address] BENNETT BANDA Facility:[facility] Start: 03-13-2022 End: 03-14-[address] BENNETT BANDA Facility:[facility] Start: 02-14-2022 End: 03-01-[address] BENNETT BANDA Facility:[facility] Start: 10-19-2021 Adult health examination Yuriy banks Solo Other [email or web address] Other Start: 09-02-2019 Preoperative cardiovascular examination Bennett Banda Other [email or web address] Other Procedures Date Procedure Procedure Detail Performing [...] 01/16/2024 1:15 PM EDT Office Visit [facility] [address] [place] [id number] Xenia Shields MD [address] [place] [address] [facility] Start: 02-15-2023 Influenza vaccination Influenza Vacc ine (#1) [facility] Immunizations Immunization Date Immunization Notes Care Provider Fa cili 03-17-2023 influenza virus vaccine, unspecified formulation Diomedes YBARRA [facility] [place] 04-17-2022 influenza virus vaccine, unspecified formulation Germania Sandoval NP Work Phone: [facility] 03-28-2022 SARS-CoV-2 (COVID-19 ) [id number] DARRELL SARAVIA [facility] Comment on above: Result Comment: 2022: [id number] 08-18-2021 tetanus and diphther ia toxoids, adsorbed, preservative free, for adult use (5 Lf of tetanus toxoid and 2 Lf of diphtheria toxoid) Bennett Banda Other [facility] 04-07-2021 SARS-CoV-2 (COVID-19 ) mRNA-1273 vaccine DARRELL MANJIT [facility] 07-13-2020 SARS-CoV-2 (COVID-19 ) mRNA-1273 vaccine DARRELL MANJIT [facility] 06-15-2020 SARS-CoV-2 (COVID-19 ) mRNA-1273 vaccine DARRELL MANJIT [facility] 03-17-2019 influenza virus vaccine, unspecified formulation DARRELL MANJIT [facility] 03-29-2018 influenza virus vaccine, unspecified formulation DARRELL MANJIT [facility] 07-01-2017 influenza virus vaccine, unspecified formulation DARRELL MANJIT [facility] 05-17-2016 influenza virus vaccine, unspecified formulation DARRELL MANJIT [facility] 04-07-2015 pneumococcal conjuga te vaccine, 13 valent DARRELL MANJIT [facility] 03-22-2015 influenza virus vaccine, split virus (incl. purified surface antigen) Bennett Banda Other [email or web address] Other 03-22-2015 influenza virus vaccine, unspecified formulation [facility] 03-21-2015 pneumococcal polysaccharide vaccine, 23 valent DARRELL MANJIT [facility] 04-22-2013 tetanus and diphther ia toxoids, adsorbed, preservative free, for adult use (5 Lf of tetanus toxoid and 2 Lf of diphtheria toxoid) Bennett Banda Other [facility] NEGATED: Highlighted row has not occurred!03-05-2019 influenza virus vaccine, unspecified formulation DARRELL SARAVIA [facility] Comment on above: Result Comment: Flu vaccine not offered at Endocrinology. Will receive through employer in March Payers Date Payer Category Payer Unknown BCBS BCBS [id number] 2022-Present [phone] [address] [place] [address] [id number] 2019 Unknown [id number] 1957 Unknown [id number] 1945 Unknown [id number] 1945 Unknown [id number] 1945 Unknown [id number] [id number] 1945 Unknown [id number] [id number] 1945 Unknown [id number] [id number] 1945 Unknown [id number] 1945 Unknown [id number] [id number] 1945 Unknown [id number] [id number] 1945 Unknown [id number] [id number] 1945 Unknown [id number] [id number] 1945 Unknown [id number] [id number] 1945 Unknown [id number] [id number] 1945 Unknown [id number] Social History Date Type Detail Facility Start: 03-05-2019 End: 06-02-2024 Tobacco smoking status Never smoked tobacco (finding) [facility] Tobacco smoking status Never [facility] Start: 07-24-2023 Sex Assigned At Female F [facility] Start: 01-14-2023 Tobacco use and exposure Smokeless tobacco non-user [facility] Start: 07-24-2023 Alcohol intake Ex-drinker (finding) [facility] Start: 07-24-2023 History of Social function [facility] Start: 1945 Sex Assigned At Not on file [facility] Start: 1945 Sex Assigned At Female F [facility] Functional Status Date Assessment Result Facility 06-02-2024 Functional Status N/A [facility] 05-28-2023 Functional Status N/A [facility] 04-30-2023 Functional Status N/A [facility] 08-01-2022 Functional Status N/A [facility] Clinical Notes 03-13-2022 to 07-01-2024 Germania Sandoval NP - 07/24/2023 11:45 AM EST Note Date & Type Note Facility 07-01-2024 Evaluation + Plan note Diagnostic Tests PendingUrine Culture 07/01/24 [facility] 06-02-2024 Hospital Discharge instructions Patient Education 06/02/2024 [...] Treatment for this condition includes: Antibiotic medicine. Gukw-djm-bejkgiv medicines to treat discomfort. Drinking enough water [...] Follow these instructions at home: Medicines Take yqmi-nke-xpbdjke and prescription medicines only as told by [...] provider. Document Revised: 01/08/2021 Document Reviewed: 01/13/2021 [employer] Patient Education 2023 [employer]. Follow Up Care 05/28/2023 12:01:08 With:[facility] Address: When: Unknown Comments:Only if needed/new problems arise. No scheduled appointment indicated at this time. [facility] 06-02-2024 Note Patient Education Obstetrics [...] this condition includes: ??? Antibiotic medicine. ??? Plve-wsv-oxoxkoa medicines to treat discomfort. ??? Drinking enough [...] these instructions at home: Medicines ??? Take tmgg-xif-arouxhk and prescription medicines only as told by [...] you di (more content not included)... [facility] 07-24-2023 History of Present illness Narrative Subjective [...] tolerated, f/U prn documented in this encounter [facility] 05-28-2023 Hospital Discharge instructions Patient Education 05/28/2023 [...] Treatment for this condition includes: Antibiotic medicine. Vrfv-qzg-vnworsy medicines to treat discomfort. Drinking enough water [...] Follow these instructions at home: Medicines Take lylr-sbo-kjewjgp and prescription medicines only as told by [...] provider. Document Revised: 01/13/2021 Document Reviewed: 01/13/2021 [employer] Patient Education 2022 [employer]. Follow Up Care 04/29/2023 08:25:06 With:MANJIT LUCAS, DARRELL Quinteros, URL Address: When:[address] [facility] 04-18-2023 Evaluation note Encounter Date Diagnosis Assessment Notes Apr, Acute cystitis without hematuria (ICD-10 - N30.00) [email or web address] Other 10-24-2023 Evaluation note* Encounter Date Diagnosis [...] (ICD-10 - N30.00) Push fluids, avoid decongestants. [place] w/ different antibiotics (ADR Cipro) Call if [...] Screening for colon cancer (ICD-10 - Z12.11) [email or web address] Other 10-11-2023 Evaluation note* Encounter Date Diagnosis Assessment Notes Treatment Notes Treatment Clinical Notes Mar, Dysuria (ICD-10 - R30.0) [email or web address] Other 06-30-2023 Evaluation note* Encounter Date Diagnosis Assessment Notes Treatment Notes Treatment Clinical Notes Nov, Essential (primary) hypertension (ICD-10 - I10) [email or web address] Other 06-28-2023 Evaluation note* Encounter Date Diagnosis Assessment Notes Treatment Notes Treatment Clinical Notes Nov, Essential (primary) hypertension (ICD-10 - I10) Nov, Gastroesophageal ref lux disease with esophagitis without hemorrhage (ICD-10 - K21.00) [email or web address] Other 05-26-2023 Evaluation note* Encounter Date Diagnosis [...] She denies heartburn, dysphagia, melena or hematochezia [email or web address] Other 02-15-2023 Hospital Discharge instructions Patient Education [...] Treatment for this condition includes: Antibiotic medicine. Ijja-ccs-kylunuv medicines to treat discomfort. Drinking enough water [...] Follow these instructions at home: Medicines Take dyfm-dev-dcdrqxe and prescription medicines only as told by [...] 03/13/2006 Document Revised: 05/21/2019 Document Reviewed: 12/11/2018 [employer] Patient Education 2020 [employer]. Follow Up Care 07/24/2022 09:06:13 With:MANJIT DARRELL LUCAS, URL Address: [address] [place] [address] Business (1) When: only if needed [facility] 09-27-2022 NotePROCEDURE: XR HIP RT 2 [...] authenticated by: TACOS FERNANDEZ Date: 2022-03-13 18:31[facility] No data available for this section [facility] evaluation + Plan note Future Appointments Appointment Date:05/28/2023 11:20:00 AM Scheduled Provider:DARRELL SARAVIA PA-C Location:[facility] Appointment Type:URO Office Visit General Surgery [place] Evaluation + Plan note Future Appointments Appointment Date:06/02/2024 01:00:00 PM Scheduled Provider:DARRELL SARAVIA PA-C Location:[facility] Appointment Type:URO Office Visit [facility] evaluation noteWilson [employer] Other Evaluation noteNo InformationWilson [facility]oc[employer] Other Evaluation note* Diagnosis Status post total right knee replacement- Primary [facility] Diagnosis Onset Date Resolution Status Chronic venous insufficiency acute Essential (primary) hypertension acute GERD (gastroesophageal reflux disease) acute Hypercholesterolemia acute Osteopenia acute Wellness examination noneact [facility] Work Phone: History general Narrative - Reported* [...] LUMINAL IRREGULARITES Hospitalization History SEE SURGICAL HX [email or web address] Other History general Narrative - ReportedNoGuideWall Other History general Narrative - Reported* Type [...] Colonoscopy 05/2023 Hospitalization History SEE SURGICAL HX [email or web address] Other Hospital Discharge instructions No data available for this section General Surgery [email or web address] [email or web address] Progress note No data available for this section [facility] reason for referral (narrative)* Reason Referral for screeni ng colonoscopy Diagnosis 1 Colon cancer screeni ng (Z12.11) Referral Organization [facility] Bao crespo Referring Provider First Name Bennett Referring Provider Last Name Solo Referring Provider Specialty Internal Mi dicviridiana Referred Organization [facility] Referred Provider Diomedes Ybarra Referred Address [address] [place], [place],[address] Referred Provider Specialty Surgery Referral Priority Routine General Notes Mrs. Mckenzie is myron ng referred for screening colonoscopy. She is overdue for screening w/ her last colonoscopy being in 2010. She did have a Cologuard completed several years ago but prefers to have repeat colonoscopy. She denies change in appetite, weight or bowel habits. She denies heartburn, dysphagia, melena or hematochezia. 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 DATE CREATED AUTHOR AUTHOR'S ORGANIZ ATION 07/04/2024 [facility] DATE CREATED AUTHOR AUTHOR'S ORGANIZ ATION 07/06/2024 [facility] DATE CREATED AUTHOR AUTHOR'S ORGANIZ ATION 07/07/2024 [facility] REASON FOR VISIT (unrecogniz ed section [...] BE BASED ON THE PRIMARY CLINICAL RECORDS. [facility]. provides no warranty or guarantee of the accuracy or completeness of information in this document.
[2024-10-26 06:39] LABS: Basophils Percent Auto 0.9 % (0.2-2.0); Eosinophils Absolute Auto 0.1 10^3/uL (0.0-0.7); Eosinophils Percent Auto 2.8 % (0.9-7.0); Hematocrit 37.6 % (36.0-48.0); Hemoglobin 12.9 g/dL (12.0-16.0); Immature Granulocytes Abs Auto 0.01 10^3/uL (0.00-0.03); Immature Granulocytes Pct Auto 0.2 % (0.0-0.5); Lymphocytes Absolute Auto 1.1 10^3/uL (1.2-3.8); Lymphocytes Percent Auto 22.9 % (20.5-60.0); Mean Corpuscular HGB Conc 34.3 g/dL (29.9-35.2); Mean Corpuscular Hemoglobin 30.3 pg (26.7-34.0); Mean Corpuscular Volume 88.3 fL (81.0-99.0); Mean Platelet Volume 10.2 fL (9.5-13.5); Monocytes Absolute Auto 0.5 10^3/uL (0.3-0.8); Monocytes Percent Auto 11.7 % (1.7-12.0); Neutrophils Absolute Auto 2.8 10^3/uL (1.4-6.5); Neutrophils Percent Auto 61.5 % (43.0-75.0); Platelet Count 240 10^3/uL (150-450); Red Blood Count 4.26 10^6/uL (4.20-5.40); Red Cell Distribution Width 11.9 % (11.0-15.0); White Blood Count 4.6 10^3/uL (4.0-11.0)
[2024-10-26 07:22] LABS: Anion Gap 11.8; Carbon Dioxide 29.4 mmol/L (21.0-32.0); Chloride 104 mmol/L (98-107); Potassium 4.2 mmol/L (3.5-5.1); Sodium 141 mmol/L (136-145)
[2024-10-26 07:23] LABS: Alanine Aminotransferase 27 U/L (14-59); Aspartate Amino Transferase 19 U/L (15-37); BUN Creatinine Ratio 26.1; Bilirubin Total 0.5 mg/dL (0.2-1.0); Calcium 10.2 mg/dL (8.5-10.1); Estimated GFR (African America >60 (>=60 mL/min/1.73m^2); Estimated GFR (Non-African Ame >60 (>=60 mL/min/1.73m^2); Glucose 102 mg/dL (74-106)
[2024-10-26 07:24] LABS: Albumin Globulin Ratio 1.1; Albumin Level 3.7 g/dL (3.4-5.0); Alkaline Phosphatase 90 U/L (46-116); Chol HDL Ratio 2.7; Cholesterol 183 mg/dL (<=200); Globulin 3.3 g/dL; HDL Cholesterol 67 mg/dL (40-60); Triglycerides 57 mg/dL (<=150); VLDL CHOLESTEROL 11.4 mg/dL
[2024-10-26 07:25] LABS: Thyroid Stimulating Hormone 0.995 uIU/mL (0.358-3.740)
[2024-10-26 09:04] LABS: Estimated Average Glucose 114 mg/dL; Glycohemoglobin A1C 5.6 % (4.5-6.2)
== END 2024-10-26 06:31 | disposition home or self-care (01) ==
LOC: LAB 06:30
PROVIDERS: Family Provider Internal Medicine; PCP Internal Medicine; Visit Provider Internal Medicine
DX: Z00.00 Encounter for general adult medical examination without abnormal findings (principal)
CPT/HCPCS: 36415; 80053; 80061; 83036; 84443; 85025